=== PATIENT | female | born 1955 | race Caucasian/White ===

== ENCOUNTER → 2017-12-16 01:45 | Outpatient (CLI) | payer OTHER, SELFPAY ==
--- NOTE | 2017-12-16 16:01 | DI.REPORT_ITS ---
SYMPTOM/DIAGNOSIS: SCREENING, Z12.31 MAMMOGRAM: Mammograms were interpreted according to the usual protocol including computer analysis with CAD system, tomosynthesis and C view imaging. Comparison with prior examinations. Breast density B. No masses or microcalcifications are seen. There is nothing to suggest malignancy. IMPRESSION: Negative mammogram. Routine screening is recommended. Category I. MQSA ASSESSMENT OF FINDINGS: Negative. Category 1. Patient will receive a letter notifying them of these results. BI-RADS category B. There are scattered areas of fibroglandular density.
== END ==
PROVIDERS: PCP Family Medicine; Visit Provider Family Medicine
DX: Z12.31 Encounter for screening mammogram for malignant neoplasm of breast (principal)
CPT/HCPCS: 77063; 77067

== ENCOUNTER 2018-06-17 18:51 | Emergency (ER) | payer MEDICARE, SELFPAY ==
[2018-06-17] VITALS (32 sets, daily range): BP systolic 90–140; BP diastolic 57–80; PULSE 105–130; RESP 13–25; TEMP 37.5; O2SAT 98–100
[2018-06-17] MEDS: Normal Saline 1,000 ML 1000 ML IV ×2 (19:02→19:04)
--- NOTE | 2018-06-17 19:02 | DI.CT_ITS ---
SYMPTOM/DIAGNOSIS: VOMITING BLOOD, MELANA CHEST, ABDOMEN AND PELVIC CT: Images were performed from the clavicles through the ischial tuberosities after IV and oral contrast. The oral contrast is seen in the stomach only. Food is also seen in the stomach. There is no evidence of esophageal perforation. No pneumothorax or pneumomediastinum is seen. The heart size is normal. There is mitral anular calcification. There are mild atherosclerotic changes of the thoracic aorta. No pleural or pericardial effusions or infiltrates are seen. The liver shows a nodular contour consistent with cirrhosis. Stones are noted in a contracted gallbladder. There is a lobulated low density area in the inferior right lobe of the liver which may represent a large cavernous hemangioma. The spleen is mildly enlarged. The pancreas, adrenals, kidneys and urinary bladder are unremarkable. There is a trace amount of free fluid. The uterus and ovaries are within normal limits. The appendix appears normal. There is no bowel dilatation or inflammatory change. There is no evidence of free air. Atherosclerotic changes are noted of the abdominal aorta and iliac arteries. Degenerative changes are seen in the spine and both hips. IMPRESSION: No evidence of esophageal rupture. There are esophageal varices. The liver has a cirrhotic appearance. There is a low density lesion in the liver which could represent a hemangioma. Further evaluation with multi phase CT is recommended.
[2018-06-17] MEDS: Pantoprazole 40 MG VIAL IVP (19:15)
[2018-06-17 19:22] LABS: Abs Immature Grans 0.15 k/cumm (0.0-0.09); Absolute Basophil Count 0.03 k/cumm (0.0-0.2); Absolute Eosinophil Count 0.03 k/cumm (0.0-0.7); Absolute Lymphocyte Count 2.33 k/cumm (1.2-3.4); Absolute Monocyte Count 1.39 k/cumm (0.11-0.7); Absolute Neutrophil Count 11.48 k/cumm (1.2-6.7); Basophils % 0.2; Eosinophils % 0.2; HGB 9.4 g/dL (12.0-15.5); Lymphocytes % 15.1; Mean Corp. HGB Concentration 32.4 g/dL (32.0-36.0); Mean Corpuscular Volume 83.3 fL (80-95); Mean Platelet Volume 10.5 fL (8.0-11.0); Neutrophils % 74.5; Platelet Count 234 x1000/uL (130-400); RBC 3.48 m/cumm (4.00-5.20); RBC Distribution Width 17.9 % (11.7-14.6); White Blood Cell Count 15.41 k/cumm (4.4-10.8)
[2018-06-17] MEDS: PANTOPRAZOLE 80 MG in Normal Saline 100 ML 10 MG IV (19:25)
[2018-06-17 19:31] LABS: ALT 31 U/L (12-78); AST 28 U/L (15-37); Albumin 2.8 g/dL (3.4-5.0); Alkaline Phosphatase 82 U/L (46-116); Anion Gap 10.9 mmol/L (3-11); BUN 36 mg/dL (7-18); Bilirubin, Total 0.6 mg/dL (0.2-1.0); CO2 22.1 mmol/L (21.0-32.0); CREATININE 0.78 mg/dL (0.55-1.02); Calcium 8.5 mg/dL (8.5-10.1); Chloride 111 mmol/L (98-107); Glucose 163 mg/dL (70-100); Potassium 4.3 mmol/L (3.5-5.1); Sodium 144 mmol/L (136-145)
[2018-06-17 19:38] LABS: INR 1.2 (0.9-1.1); PTT Activated 20.7 sec (21.0-31.4); Prothrombin Time 12.4 sec (9.3-11.0)
[2018-06-17] MEDS: Breeza Beverage 473 ML BTL PO ×2 (19:52→19:55)
[2018-06-17] MEDS: Omnipaque 350 MG/ML 100 ML BTL IV (19:52)
[2018-06-17] MEDS: Omnipaque 350 MG/ML 50 ML BTL PO (19:55)
--- NOTE | 2018-06-17 19:59 | W.SURGCON ---
Date of service: 06/17/18 Time of Service: 19:59 Assessment and Plan (1) Hepatocellular carcinoma: Current visit: Yes Status: Acute RFA on 06/10. no chemo or XRT at this point. (2) Varices of esophagus determined by endoscopy: Current visit: Yes Status: Acute EGD and banding 4 wks ago. Recurrent GI bleed. still has lg varices on CT PPI Cipro prophalxis transfuse 2 PRBC octreotide fluids resustiation pt follow at [facility] [place] for chronic care. EGD yest at [facility] [place]. GI has agreed to transfer for acute care. SHe is currently hemodyncamically stable. no peritonitis. no active vomting. (3) GI (gastrointestinal hemorrhage): Current visit: Yes Status: Chronic as below (4) Portal hypertensive gastropathy: Current visit: Yes Status: Acute bleeding vessel seen yest PPI stopped nsaids/asa (5) Hep C w/o coma, chronic: Current visit: Yes Status: Acute chornic History of Present Illness Chief Complaint: vomiting arterial blood Narrative: pt presented to ED vomting BRB. She was a Hx of cirrhosis/portal venous htn/varices/ETOH abuse/heaptocellular Ca. She has an RFA ablation of her single liver tumor on 06/10. hgb 12. She had on EGD on 06/16 for anemia/bleeding esophageal varices. She was found to have bleeding vessels in the fundus which were not clipped/cauterized/injected. She romano Hgb today is 9.4 (12.8 on 06/10) INR 1.2 She was hypotensive upon arrival and has had fluid resuscitation started and IV PPI. SBP is 117 currently. She c/o nausea and some lower abdominal crampy pain. No chest pain or back pain. no pain or difficulty swallowing. She is no H2 mariajose or PPI at home. She is not on ASA. She was taking ibuprofen for pain. She does not have any epigastric pain. no distention/no peritonitis. Consults Consult date: 06/17/18 Requesting physician: London Zazueta Review of Systems Constitutional Denies anorexia, Denies body ache(s), Denies chills, Reports fatigue, Denies fever(s) and Reports weakness Comments: N/V Eyes Comments: no eye pain or drainage. no jaundice Cardiovascular Denies chest pain Gastrointestinal Reports abdominal pain, Reports melena, Reports coffee ground emesis, Reports nausea, Reports vomiting and Reports hematemesis Comments: vomiting BRB. no epigastric pain or chest pain/back pain. no crepitus Neurologic Reports weakness Endocrine Reports fatigue [facility] Surgical History section Ligation of fallopian tube Social History Smoking and Tabacco status: Current-Occasional Exam Const Other: currently being fluid resuscitated. feels better. no nausea. no further vomiting. SBP 117's. Eyes Sclera: sclerae normal Chest Chest: normal inspection of the chest Resp Effort & Inspection: normal respiratory effort Auscultation: breath sounds absent, no rales, no rhonchi and no wheezes Cardio Palpation: normal PMI Rate: tachycardic Rhythm: regular rhythm GI Inspection: normal to inspection Palpation: soft and No ascites Other: mild abdom pain in lower abdom. no distention or peritonitis Skin General skin exam: no rashes or lesions noted Extrem General: no clubbing, cyanosis or edema Results Last Vital Signs Pulse 130 H 06/17/18 18:52 Resp 17 06/17/18 18:52 BP 99/72 L 06/17/18 18:52 Pulse Ox 100 06/17/18 18:52 Labs : 06/17/18 18:57 06/17/18 18:57 Laboratory Results - last 24 hr 06/17/18 06/17/18 06/17/18 18:57 18:57 18:57 WBC 15.41 H RBC 3.48 L Hgb 9.4 L Hct 29.0 L MCV 83.3 MCH 27.0 MCHC 32.4 RDW 17.9 H Plt Count 234 MPV 10.5 Immature Gran % 1.0 Neutrophils % 74.5 Lymphocytes % 15.1 Monocytes % 9.0 Eosinophils % 0.2 Basophils % 0.2 Absolute Neutrophils 11.48 H Absolute Lymphocytes 2.33 Absolute Monocytes 1.39 H Absolute Eosinophils 0.03 Absolute Basophils 0.03 Sodium 144 Potassium 4.3 Chloride 111 H Carbon Dioxide 22.1 Anion Gap 10.9 BUN 36 H Creatinine 0.78 Estimated GFR/1.73 m2 >= 60.00 Glucose 163 H Calcium 8.5 Total Bilirubin 0.6 AST 28 ALT 31 Alkaline Phosphatase 82 Total Protein 7.0 Albumin 2.8 L Patient ABO/Rh A Positive
--- NOTE | 2018-06-17 20:03 | SCONE_ITS ---
Date of service: 06/17/18 Time of Service: 19:59 Assessment and Plan (1) Hepatocellular carcinoma: Current visit: Yes Status: Acute RFA on 06/10. no chemo or XRT at this point. (2) Varices of esophagus determined by endoscopy: Current visit: Yes Status: Acute EGD and banding 4 wks ago. Recurrent GI bleed. still has lg varices on CT PPI Cipro prophalxis transfuse 2 PRBC octreotide fluids resustiation pt [place] [facility] [place]. EGD yest at [facility] [place]. GI has agreed to transfer for acute care. SHe is currently hemodyncamically stable. no peritonitis. no active vomting. (3) GI (gastrointestinal hemorrhage): Current visit: Yes Status: Chronic as below (4) Portal hypertensive gastropathy: Current visit: Yes Status: Acute bleeding vessel seen yest PPI stopped nsaids/asa (5) Hep C w/o coma, chronic: Current visit: Yes Status: Acute chornic History of Present Illness Chief Complaint: vomiting arterial blood Narrative: pt presented to ED vomting BRB. She was a Hx of cirrhosis/portal venous htn/varices/ETOH abuse/heaptocellular Ca. She has an RFA ablation of her single liver tumor on 06/10. hgb 12. She had on EGD on 06/16 for anemia/bleeding esophageal varices. She was found to have bleeding vessels in the fundus which were not clipped/cauterized/injected. She romano Hgb today is 9.4 (12.8 on 06/10) INR 1.2 She was hypotensive upon arrival and has had fluid resuscitation started and IV PPI. SBP is 117 currently. She c/o nausea and some lower abdominal crampy pain. No chest pain or back pain. no pain or difficulty swallowing. She is no H2 mariajose or PPI at home. She is not on ASA. She was taking ibuprofen for pain. She does not have any epigastric pain. no distention/no peritonitis. Consults Consult date: 06/17/18 Requesting physician: London Zazueta Review of Systems Constitutional Denies anorexia, Denies body ache(s), Denies chills, Reports fatigue, Denies fever(s) and Reports weakness Comments: N/V Eyes Comments: no eye pain or drainage. no jaundice Cardiovascular Denies chest pain Gastrointestinal Reports abdominal pain, Reports melena, Reports coffee ground emesis, Reports nausea, Reports vomiting and Reports hematemesis Comments: vomiting BRB. no epigastric pain or chest pain/back pain. no crepitus Neurologic Reports weakness Endocrine Reports fatigue [facility] Surgical History section Ligation of fallopian tube Social History Smoking and Tabacco status: Current-Occasional Exam Const Other: currently being fluid resuscitated. feels better. no nausea. no further vomiting. SBP 117's. Eyes Sclera: sclerae normal Chest Chest: normal inspection of the chest Resp Effort & Inspection: normal respiratory effort Auscultation: breath sounds absent, no rales, no rhonchi and no wheezes Cardio Palpation: normal PMI Rate: tachycardic Rhythm: regular rhythm GI Inspection: normal to inspection Palpation: soft and No ascites Other: mild abdom pain in lower abdom. no distention or peritonitis Skin General skin exam: no rashes or lesions noted Extrem General: no clubbing, cyanosis or edema Results Last Vital Signs Pulse 130 H 06/17/18 18:52 Resp 17 06/17/18 18:52 BP 99/72 L 06/17/18 18:52 Pulse Ox 100 06/17/18 18:52 Labs : 06/17/18 18:57 06/17/18 18:57 Laboratory Results - last 24 hr 06/17/18 06/17/18 06/17/18 18:57 18:57 18:57 WBC 15.41 H RBC 3.48 L Hgb 9.4 L Hct 29.0 L MCV 83.3 MCH 27.0 MCHC 32.4 RDW 17.9 H Plt Count 234 MPV 10.5 Immature Gran % 1.0 Neutrophils % 74.5 Lymphocytes % 15.1 Monocytes % 9.0 Eosinophils % 0.2 Basophils % 0.2 Absolute Neutrophils 11.48 H Absolute Lymphocytes 2.33 Absolute Monocytes 1.39 H Absolute Eosinophils 0.03 Absolute Basophils 0.03 Sodium 144 Potassium 4.3 Chloride 111 H Carbon Dioxide 22.1 Anion Gap 10.9 BUN 36 H Creatinine 0.78 Estimated GFR/1.73 m2 >= 60.00 Glucose 163 H Calcium 8.5 Total Bilirubin 0.6 AST 28 ALT 31 Alkaline Phosphatase 82 Total Protein 7.0 Albumin 2.8 L Patient ABO/Rh A Positive
--- NOTE | 2018-06-17 20:04 | ED.GENADUL_ITS ---
Medical Decision Making <Heriberto Zazueta, - Last Filed: 06/18/18 08:19> This is a 63-year-old female with a past medical history of esophageal varices, alcoholism, liver cirrhosis who had a recent EGD performed 3 days ago, there was noted mild mild bleeding varices at that time, but per the report there does not seem to be any banding that was done. She is discharged home, starting today the patient started having vomiting of bright red blood, melena, and coffee-ground emesis. Multiple episodes of vomiting today. She denies any severe abdominal pain. Initial assessment demonstrates a tachycardic and mildly hypotensive patient, 2 large bore IVs were immediately placed, 2 L of normal saline were started. The patient was typed and screened. Surgery here was consulted. Surgeon did review the CT scan and does see notable varices and a large clot in the stomach. She is management is up he does not he does not landing and she does recommend transfer back to [facility] for continued management potential banding. Patient has been started on a Protonix bolus and infusion, octreotide bolus and infusion, and 1 unit of PRBCs. Hemoglobin is 9.4, from [facility] the patient's last hemoglobin just 5 days ago was 12. 8:12 PM We are still awaiting callback from [facility]. Pending CT scan results, blood pressure is improving to 112 systolic heart rate slightly coming down to 110. Patient showing improved stabilization. Case will be signed out to my colleague Dr. Dale Diaz. 8:26 PM The case has been discussed with Dr. Knowles at [facility], as well as Dr. Zelaya to the multimedia specialist. They agree with the current assessment and plan recommend transfer. The patient will be started on Cipro per the recommendation of GI secondary to her penicillin allergy. I have extensively reviewed the treatment plan with the patient. I have addressed all patient concerns at this time. I have also discussed the plan with the admitting physician and they agree with the current assessment and plan and have agreed to assume responsibility for the patient. All parties demonstrate verbal understanding and agreement with our assessment and plan at this time. Upon my evaluation, this patient had a high probability of imminent or life- threatening deterioration, which required my direct attention, intervention, and personal management. I have personally provided 45 minutes of critical care time exclusive of time spent on separately billable procedures. Time includes review of laboratory data, radiology results, discussion with consultants, and monitoring for potential decompensation. Interventions were performed as documented above. <Dale Diaz MD - Last Filed: 06/17/18 22:26> Received signout from Dr. Zazueta pending transport to [facility]. No local loss mitigation specialist/critical care appropriate crew available. Patient had recurrent black tarry emesis in the emergency department, [facility] contacted and available to transport patient to tertiary center. HPI <Heriberto Zazueta DO - Last Filed: 06/18/18 08:19> General Date/Time Provider Initiated Documentation: 06/17/18 18:56 . HPI Narrative: This is a pleasant 63-year-old female with a past medical history of hepatitis C, liver cancer, alcoholism, esophageal varices, who presents today for evaluation of hematemesis and melena. The patient was recently at [facility] and radioablation of a lesion of her liver on the , followed by an EGD for evaluation of her varices on the (yesterday), bleeding was noted at the time of the EGD from the varices. No banding or clipping per report at that time. Patient was discharged home, and then starting today she developed vomiting of both bright red blood and coffee-ground emesis in conjunction with melanotic stools. She denies any severe abdominal pain, chest pain, or shortness of breath. She denies any other complaints or other modifying factors. She is not on any blood thinners. Related Data Home Medications Medication Instructions Recorded Confirmed omega-3 fatty acids-fish oil 1 ea PO DAILY 04/09/14 11/10/17 melatonin-pyridoxine (vit B6) 1 tab PO HS PRN 07/31/14 11/10/17 sertraline [Zoloft] 100 mg PO DAILY tab-cap 08/06/14 06/17/18 milk thistle 2 tab PO DAILY 08/02/15 11/10/17 ibuprofen 600 mg PO QID PRN #15 tablet 01/24/17 11/10/17 levothyroxine 25 mcg PO DAILY 01/24/17 06/17/18 risperidone [Risperdal] 1 mg PO BID 11/10/17 11/10/17 buspirone 15 mg PO BID 06/17/18 06/17/18 Previous Rx's Medication Instructions Recorded ibuprofen 600 mg PO QID PRN #15 tablet 01/24/17 Allergies Allergy/AdvReac Type Severity Reaction Status Date / Time Penicillins Allergy Severe Hives Unverified 06/17/18 18:59 General Stated Complaint: Nausea/Vomit/Diar SARAH: 2 Review of Systems <Heriberto Zazueta - Last Filed: 06/18/18 08:19> Review of Systems All systems reviewed & are unremarkable except as noted in HPI and below PFSH <Heriberto MirandaDO latoya - Last Filed: 06/18/18 08:19> Surgical History section Ligation of fallopian tube Social History Smoking and Tabacco status: Current-Occasional Exam <Heriberto MirandaDO latoya - Last Filed: 06/18/18 08:19> Narrative Exam Narrative: 1.Const: Well-nourished, Well-developed, appearing stated age 2.Eyes: PERRL, no conjunctival injection, and symmetrical lids. 3.ENT: Atraumatic external nose and ears. Moist MM. Neck: Symmetric, trachea midline, No thyromegaly. 4.CVS: +S1/S2, No murmurs or gallops. Peripheral pulses 2+ and equal in all extremities. Brisk capillary refill in all extremities. 5.RESP: Unlabored respiratory effort. Clear to auscultation bilaterally. No wheezes rales or rhonchi 6.GI: Soft, Nontender/Nondistended, No hepatosplenomegaly. No guarding or rebound. 7.MSK: Normocephalic/Atraumatic, Extremities w/o deformity or ttp No cyanosis or clubbing, Normal movement of all extremities 8.Skin: Warm, Dry. No rashes or lesions. 9.Neuro: research librarian II-XII grossly intact. Sensation grossly intact, no focal neurologic deficits. 10.Psych: (AAO) x3. Appropriate mood and affect Course <Heriberto MirandaDO latoya - Last Filed: 06/18/18 08:19> Vital Signs Pulse 130 H 06/17/18 18:52 Respiratory Rate 17 06/17/18 18:52 Blood Pressure 99/72 L 06/17/18 18:52 Pulse Oximetry 100 06/17/18 18:52 Pulse 130 H 06/17/18 18:52 Respiratory Rate 17 06/17/18 18:52 Respiratory Effort Non-Labored 06/17/18 18:57 Blood Pressure 99/72 L 06/17/18 18:52 Blood Pressure Position Supine 06/17/18 18:52 Pulse Oximetry 100 06/17/18 18:52 Oxygen Delivery Method Room Air 06/17/18 18:52 Oxygen Flow Rate 0 06/17/18 18:52 Pain Level 0 06/17/18 18:52 Lab/Test Results Lab/Test Results: Laboratory Tests Range/Units 06/17/18 06/17/18 06/17/18 18:57 18:57 18:57 WBC (4.4-10.8) k/cumm 15.41 H RBC (4.00-5.20) m/cumm 3.48 L Hgb (12.0-15.5) g/dL 9.4 L Hct (36.0-46.0) % 29.0 L MCV (80-95) fL 83.3 MCH (27.0-33.0) pg 27.0 MCHC (32.0-36.0) g/dL 32.4 RDW (11.7-14.6) % 17.9 H Plt Count (130-400) x1000/uL 234 MPV (8.0-11.0) fL 10.5 Immature Gran % 1.0 Neutrophils % 74.5 Lymphocytes % 15.1 Monocytes % 9.0 Eosinophils % 0.2 Basophils % 0.2 Absolute Neutrophils (1.2-6.7) k/cumm 11.48 H Absolute Lymphocytes (1.2-3.4) k/cumm 2.33 Absolute Monocytes (0.11-0.7) k/cumm 1.39 H Absolute Eosinophils (0.0-0.7) k/cumm 0.03 Absolute Basophils (0.0-0.2) k/cumm 0.03 Sodium (136-145) mmol/L 144 Potassium (3.5-5.1) mmol/L 4.3 Chloride (98-107) mmol/L 111 H Carbon Dioxide (21.0-32.0) mmol/L 22.1 Anion Gap (3-11) mmol/L 10.9 BUN (7-18) mg/dL 36 H Creatinine (0.55-1.02) mg/dL 0.78 Estimated GFR/1.73 m2 (mL/min/1.73m2) >= 60.00 Glucose (70-100) mg/dL 163 H Calcium (8.5-10.1) mg/dL 8.5 Total Bilirubin (0.2-1.0) mg/dL 0.6 AST (15-37) U/L 28 ALT (12-78) U/L 31 Alkaline Phosphatase (46-116) U/L 82 Total Protein (6.4-8.2) g/dL 7.0 Albumin (3.4-5.0) g/dL 2.8 L Patient ABO/Rh A Positive Antibody Screen Negative Sign Out <Heriberto Zazueta DO - Last Filed: 06/18/18 08:19> Sign Out Data: Sign Out Comment: Pending CT results, disposition and transfer to [email or web address] [[email or web address] Last updated by Heriberto Zazueta DO at 06/17/18 20:02
--- NOTE | 2018-06-17 20:23 | DI.VRAD_ITS ---
EXAM: CT Chest With Contrast EXAM DATE/TIME: 06/17/2018 7:15 PM CLINICAL HISTORY: 63 years old, female; Signs and symptoms; Other: Vomiting blood, melena TECHNIQUE: Axial computed tomography images of the chest with intravenous contrast. All CT scans at this facility use at least one of these dose optimization techniques: automated exposure control; mA and/or kV adjustment per patient size (includes targeted exams where dose is matched to clinical indication); or iterative reconstruction. Coronal and sagittal reformatted images were created and reviewed. CONTRAST: Contrast Material: 100 ml of OMNIPAQUE 350; Contrast Route: IV COMPARISON: No relevant prior studies available. FINDINGS: Thyroid: The thyroid gland is within normal limits. Lungs: See below. Pleural space: There is no evidence of an infiltrate or a pleural effusion. Heart: There is mitral annulus calcification. Mediastinum: The trachea and bronchial trees are patent bilaterally. Aorta: There are arteriosclerotic changes of the thoracic aorta. Lymph nodes: No enlarged lymph nodes. Bones/joints: The visualized bony structures appear within normal limits. Soft tissues: Unremarkable. IMPRESSION: There is no evidence of an infiltrate or a pleural effusion. EXAM: CT Abdomen and Pelvis With Contrast EXAM DATE/TIME: 06/17/2018 7:15 PM CLINICAL HISTORY: 63 years old, female; Signs and symptoms; Other: Vomiting blood, melena TECHNIQUE: Axial computed tomography images of the abdomen and pelvis with intravenous contrast. All CT scans at this facility use at least one of these dose optimization techniques: automated exposure control; mA and/or kV adjustment per patient size (includes targeted exams where dose is matched to clinical indication); or iterative reconstruction. Coronal and sagittal reformatted images were created and reviewed. CONTRAST: Contrast Material: 100 ml of OMNIPAQUE 350 ; Contrast Route: IV COMPARISON: No relevant prior studies available. FINDINGS: Lower thorax: Please see CT scan of the chest results above. ABDOMEN: Liver: The liver contour is nodular. This is suspicious for cirrhosis. There is a large low attenuation lesion with irregular shape in the right lobe of the liver measuring 5.0 x 4.0 cm. This is not a cyst. This does not appear to represent hemangioma. This could be reevaluated with a CT scan of the liver pre-and post contrast administration utilizing hemangioma protocol. Gallbladder and bile ducts: The gallbladder is contracted with gallstones. Pancreas: The pancreas is within normal limits. Spleen: The spleen is enlarged. Adrenals: The adrenal glands are unremarkable. Kidneys and ureters: The kidneys are within normal limits. Stomach and bowel: There are food products within the stomach. There is no evidence of bowel obstruction. Appendix: The appendix is visualized and is within normal limits. PELVIS: Bladder: The urinary bladder is unremarkable. Reproductive: The uterus and ovaries are within normal limits. ABDOMEN and PELVIS: Intraperitoneal space: Normal. No free air. No significant fluid collection. Bones/joints: There are degenerative changes of both hips. Soft tissues: Unremarkable. Vasculature: There are arteriosclerotic changes of the aorta. There are phleboliths within the pelvis. Lymph nodes: No enlarged lymph nodes. IMPRESSION: Cirrhosis. Splenomegaly. Large liver lesion as described above. Please see discussion above. Cholelithiasis. Dictated and Authenticated by: Merlin Baxter MD. Ordering:VIVI oLuis MD
[2018-06-17] MEDS: Ondansetron 4 MG/2 ML VIAL (20:50)
[2018-06-17] MEDS: CIPROFLOXACIN 400 MG/200 ML BAG 200 MG IVPB (21:15)
--- NOTE | 2018-06-17 21:43 | NUR.NOTE ---
Nursing Note: unit #1 sent running with [facility]. Unit #2 given to start en route with [facility].
== END 2018-06-17 21:55 | disposition short-term general hospital (02) ==
PROVIDERS: Student in an Organized Health Care Education/Training Program; Emergency Provider Emergency Medicine; PCP Family Medicine
DX: I85.01 Esophageal varices with bleeding (principal); K92.2 Gastrointestinal hemorrhage, unspecified
CPT/HCPCS: 36415; 36430; 74177; 80053; 86850; 86900; 86901; 86920; 96361; 96365; 96366; 96368; 99254; 99284; 99285; 71260; 85025; 85610; 85730; J0744; J2354; J2405; J3490; P9016; Q9967

== ENCOUNTER 2018-06-25 09:40 | Outpatient (CLI) | payer MEDICARE, SELFPAY ==
[2018-06-25 10:13] LABS: Abs Immature Grans 0.02 k/cumm (0.0-0.09); Absolute Basophil Count 0.01 k/cumm (0.0-0.2); Absolute Eosinophil Count 0.08 k/cumm (0.0-0.7); Absolute Lymphocyte Count 0.79 k/cumm (1.2-3.4); Basophils % 0.2; Eosinophils % 1.9; HCT 24.5 % (36.0-46.0); HGB 8.2 g/dL (12.0-15.5); Immature Grans % 0.5; Lymphocytes % 19.1; Mean Corp. HGB Concentration 33.5 g/dL (32.0-36.0); Mean Corpuscular Hemoglobin 28.8 pg (27.0-33.0); Mean Platelet Volume 10.8 fL (8.0-11.0); Monocytes % 16.9; Neutrophils % 61.4; Platelet Count 125 x1000/uL (130-400); RBC 2.85 m/cumm (4.00-5.20); RBC Distribution Width 17.1 % (11.7-14.6); White Blood Cell Count 4.13 k/cumm (4.4-10.8)
[2018-06-25 10:29] LABS: Absolute Neutrophil Count 2.54 k/cumm (1.2-6.7)
[2018-06-25 10:54] LABS: Diff Comment RBC Morph Reviewed
[2018-06-25 10:55] LABS: Hypochromasia 1+; Microcytosis 2+
== END 2018-06-25 10:00 ==
PROVIDERS: PCP Family Medicine; Visit Provider Family Medicine
DX: K76.6 Portal hypertension (principal); K92.2 Gastrointestinal hemorrhage, unspecified; C22.0 Liver cell carcinoma; K74.60 Unspecified cirrhosis of liver; B19.20 Unspecified viral hepatitis C without hepatic coma
CPT/HCPCS: 36415; 85025

== ENCOUNTER 2018-06-27 16:15 | Outpatient (REF) | payer MEDICARE, SELFPAY ==
[2018-06-27 21:26] LABS: Abs Immature Grans 0.01 k/cumm (0.0-0.09); Absolute Basophil Count 0.02 k/cumm (0.0-0.2); Absolute Eosinophil Count 0.08 k/cumm (0.0-0.7); Absolute Lymphocyte Count 0.86 k/cumm (1.2-3.4); Absolute Monocyte Count 0.63 k/cumm (0.11-0.7); Basophils % 0.5; Eosinophils % 2.1; HCT 24.8 % (36.0-46.0); HGB 7.8 g/dL (12.0-15.5); Immature Grans % 0.3; Lymphocytes % 22.1; Mean Corp. HGB Concentration 31.5 g/dL (32.0-36.0); Mean Corpuscular Volume 85.8 fL (80-95); Mean Platelet Volume 11.6 fL (8.0-11.0); Monocytes % 16.2; Neutrophils % 58.8; Platelet Count 161 x1000/uL (130-400); RBC 2.89 m/cumm (4.00-5.20); RBC Distribution Width 17.3 % (11.7-14.6)
[2018-06-27 22:54] LABS: Absolute Neutrophil Count 2.29 k/cumm (1.2-6.7)
[2018-06-27 22:55] LABS: Hypochromasia 1+; Polychromasia Present
== END 2018-06-27 16:35 ==
LOC: NCHCN 16:15
PROVIDERS: PCP Family Medicine; Visit Provider Family Medicine
DX: K92.2 Gastrointestinal hemorrhage, unspecified (principal)
CPT/HCPCS: 85025

== ENCOUNTER 2018-07-01 08:41 | Outpatient (CLI) | payer MEDICARE, SELFPAY ==
[2018-07-01 09:18] LABS: Absolute Basophil Count 0.02 k/cumm (0.0-0.2); Absolute Eosinophil Count 0.11 k/cumm (0.0-0.7); Absolute Lymphocyte Count 0.78 k/cumm (1.2-3.4); Absolute Monocyte Count 0.64 k/cumm (0.11-0.7); Absolute Neutrophil Count 2.43 k/cumm (1.2-6.7); Basophils % 0.5; Eosinophils % 2.8; HCT 25.4 % (36.0-46.0); HGB 8.3 g/dL (12.0-15.5); Lymphocytes % 19.6; Mean Corp. HGB Concentration 32.7 g/dL (32.0-36.0); Mean Corpuscular Hemoglobin 27.5 pg (27.0-33.0); Mean Corpuscular Volume 84.1 fL (80-95); Mean Platelet Volume 10.3 fL (8.0-11.0); Monocytes % 16.1; Platelet Count 166 x1000/uL (130-400); RBC 3.02 m/cumm (4.00-5.20); RBC Distribution Width 17.5 % (11.7-14.6); White Blood Cell Count 3.98 k/cumm (4.4-10.8)
[2018-07-01 10:10] LABS: ALT 23 U/L (12-78); AST 29 U/L (15-37); Albumin 3.2 g/dL (3.4-5.0); Alkaline Phosphatase 95 U/L (46-116); Bilirubin, Direct 0.14 mg/dL (0.00-0.20); Bilirubin, Total 0.4 mg/dL (0.2-1.0); Total Protein 7.3 g/dL (6.4-8.2)
== END 2018-07-01 09:01 ==
PROVIDERS: PCP Family Medicine; Visit Provider Family Medicine
DX: C22.0 Liver cell carcinoma (principal)
CPT/HCPCS: 36415; 80076; 85025

== ENCOUNTER 2018-07-11 10:15 | Outpatient (CLI) | payer MEDICARE, SELFPAY ==
[2018-07-11 10:39] LABS: HCT 28.5 % (36.0-46.0); HGB 8.7 g/dL (12.0-15.5); Mean Corp. HGB Concentration 30.5 g/dL (32.0-36.0); Mean Corpuscular Hemoglobin 25.3 pg (27.0-33.0); Mean Corpuscular Volume 82.8 fL (80-95); Mean Platelet Volume 9.8 fL (8.0-11.0); Platelet Count 107 x1000/uL (130-400); RBC 3.44 m/cumm (4.00-5.20); RBC Distribution Width 18.6 % (11.7-14.6); White Blood Cell Count 3.52 k/cumm (4.4-10.8)
== END 2018-07-11 10:35 ==
PROVIDERS: PCP Family Medicine; Visit Provider Family Medicine
DX: K92.2 Gastrointestinal hemorrhage, unspecified (principal)
CPT/HCPCS: 36415; 85027

== ENCOUNTER 2018-07-22 11:23 | Outpatient (CLI) | payer MEDICARE, SELFPAY ==
[2018-07-22 12:12] LABS: Abs Immature Grans 0.01 k/cumm (0.0-0.09); Absolute Basophil Count 0.01 k/cumm (0.0-0.2); Absolute Lymphocyte Count 0.83 k/cumm (1.2-3.4); Basophils % 0.2; Eosinophils % 2.4; HCT 33.3 % (36.0-46.0); HGB 10.4 g/dL (12.0-15.5); Immature Grans % 0.2; Lymphocytes % 20.2; Mean Corp. HGB Concentration 31.2 g/dL (32.0-36.0); Mean Corpuscular Hemoglobin 25.7 pg (27.0-33.0); Mean Corpuscular Volume 82.4 fL (80-95); Mean Platelet Volume 10.7 fL (8.0-11.0); Platelet Count 118 x1000/uL (130-400); RBC 4.04 m/cumm (4.00-5.20); RBC Distribution Width 18.7 % (11.7-14.6); White Blood Cell Count 4.11 k/cumm (4.4-10.8)
[2018-07-22 12:16] LABS: Absolute Neutrophil Count 2.47 k/cumm (1.2-6.7)
== END 2018-07-22 11:43 ==
PROVIDERS: PCP Family Medicine; Visit Provider Internal Medicine Gastroenterology
DX: K74.60 Unspecified cirrhosis of liver (principal)
CPT/HCPCS: 36415; 85025

== ENCOUNTER 2018-11-23 16:38 | Outpatient (REF) | payer MEDICARE, SELFPAY ==
--- NOTE | 2018-11-23 16:00 | PAPFT_PTH ---
PATIENT: Cheli Teresa LOC: [facility] U#:[id number] AGE/SX: 63/F ROOM: RE11/23/[address]: Geovanna Barlow : 1955 BED: DIS: 11/23/2018 SPEC #: [id number] RECD: 11/24/18 12:46 STATUS: MARÍA REQ #: [id number] KRYSTEN: 11/23/18 16:[address]: Geovanna Barlow DEPT: [facility] Cytology RECD BY: Enid Dixon Tissues: 1 - CX/ENDOCX FOR PAP SMEARS Procedures: PAP THIN PREP/[facility] Screening HPV DNA PROBE Comments: [id number]
== END 2018-11-23 16:58 ==
LOC: NCHCN 16:38
PROVIDERS: PCP Family Medicine; Visit Provider Family Medicine
DX: Z12.4 Encounter for screening for malignant neoplasm of cervix (principal); Z11.51 Encounter for screening for human papillomavirus (HPV); Z01.419 Encounter for gynecological examination (general) (routine) without abnormal findings
CPT/HCPCS: 88142; 87624

== ENCOUNTER 2018-12-21 00:26 | Outpatient (CLI) | payer MEDICARE, SELFPAY ==
--- NOTE | 2018-12-21 11:35 | DI.MAMMO_ITS ---
SYMPTOMS/DIAGNOSIS: SCREENING, Z12.31 BILATERAL SCREENING MAMMOGRAM: Mammograms were interpreted according to the usual protocol including computer analysis with CAD system, tomosynthesis and C view imaging. Comparison is made with exams from 2011 through 2018. The breasts are composed of scattered fibroglandular densities, breast density category B. No suspicious masses or suspicious microcalcifications are seen. There has been no significant change. IMPRESSION: Category 1, negative mammogram. Yearly screening mammography is recommended. [facility] ASSESSMENT OF FINDINGS: Negative. Category 1. Patient will receive a letter notifying them of these results. BI-RADS category B. There are scattered areas of fibroglandular density.
== END 2018-12-21 00:46 ==
PROVIDERS: PCP Family Medicine; Visit Provider Family Medicine
DX: Z12.31 Encounter for screening mammogram for malignant neoplasm of breast (principal)
CPT/HCPCS: 77063; 77067

== ENCOUNTER 2019-01-20 08:43 | Outpatient (CLI) | payer MEDICARE, MEDICAID, SELFPAY ==
[2019-01-20 09:38] LABS: Abs Immature Grans 0.01 k/cumm (0.0-0.09); Absolute Basophil Count 0.01 k/cumm (0.0-0.2); Absolute Eosinophil Count 0.14 k/cumm (0.0-0.7); Absolute Lymphocyte Count 0.97 k/cumm (1.2-3.4); Absolute Monocyte Count 0.75 k/cumm (0.11-0.7); Absolute Neutrophil Count 3.59 k/cumm (1.2-6.7); Basophils % 0.2; Eosinophils % 2.6; HCT 41.9 % (36.0-46.0); HGB 14.4 g/dL (12.0-15.5); Immature Grans % 0.2; Lymphocytes % 17.7; Mean Corp. HGB Concentration 34.4 g/dL (32.0-36.0); Mean Corpuscular Hemoglobin 31.4 pg (27.0-33.0); Mean Corpuscular Volume 91.3 fL (80-95); Mean Platelet Volume 9.9 fL (8.0-11.0); Monocytes % 13.7; Neutrophils % 65.6; Platelet Count 117 x1000/uL (130-400); RBC 4.59 m/cumm (4.00-5.20); RBC Distribution Width 14.4 % (11.7-14.6); White Blood Cell Count 5.47 k/cumm (4.4-10.8)
== END 2019-01-20 09:03 ==
PROVIDERS: PCP Family Medicine; Visit Provider Internal Medicine Gastroenterology
DX: K74.60 Unspecified cirrhosis of liver (principal)
CPT/HCPCS: 36415; 85025

== ENCOUNTER 2019-03-13 13:07 | Outpatient (CLI) | payer MEDICARE, MEDICAID, SELFPAY ==
[2019-03-13 14:23] LABS: Abs Immature Grans 0.01 k/cumm (0.0-0.09); Absolute Basophil Count 0.01 k/cumm (0.0-0.2); Absolute Eosinophil Count 0.12 k/cumm (0.0-0.7); Absolute Lymphocyte Count 0.98 k/cumm (1.2-3.4); Absolute Monocyte Count 0.89 k/cumm (0.11-0.7); Absolute Neutrophil Count 3.31 k/cumm (1.2-6.7); Basophils % 0.2; Eosinophils % 2.3; HCT 38.2 % (36.0-46.0); HGB 12.8 g/dL (12.0-15.5); Immature Grans % 0.2; Lymphocytes % 18.4; Mean Corp. HGB Concentration 33.5 g/dL (32.0-36.0); Mean Corpuscular Hemoglobin 28.8 pg (27.0-33.0); Mean Platelet Volume 10.4 fL (8.0-11.0); Monocytes % 16.7; Neutrophils % 62.2; Platelet Count 138 x1000/uL (130-400); RBC 4.44 m/cumm (4.00-5.20); RBC Distribution Width 13.7 % (11.7-14.6); White Blood Cell Count 5.32 k/cumm (4.4-10.8)
[2019-03-13 14:54] LABS: INR 1.1 (0.9-1.1); Prothrombin Time 11.4 sec (9.3-11.0)
[2019-03-13 15:02] LABS: ALT 30 U/L (14-59); AST 27 U/L (15-37); Albumin 3.7 g/dL (3.4-5.0); Alkaline Phosphatase 98 U/L (46-116); Anion Gap 11.5 mmol/L (3-11); BUN 14 mg/dL (7-18); Bilirubin, Total 0.4 mg/dL (0.2-1.0); CO2 24.5 mmol/L (21.0-32.0); CREATININE 0.79 mg/dL (0.55-1.02); Calcium 8.6 mg/dL (8.5-10.1); Chloride 106 mmol/L (98-107); Glucose 80 mg/dL (74-106); Potassium 4.4 mmol/L (3.5-5.1); Sodium 142 mmol/L (136-145); Total Protein 7.8 g/dL (6.4-8.2)
[2019-03-15 09:45] LABS: AFP Tumor Marker 4.3 ng/mL (<8.1)
== END 2019-03-13 13:27 ==
PROVIDERS: PCP Family Medicine; Visit Provider Internal Medicine Gastroenterology
DX: K74.60 Unspecified cirrhosis of liver (principal); C22.0 Liver cell carcinoma
CPT/HCPCS: 36415; 80053; 82105; 85025; 85610

== ENCOUNTER 2019-07-27 10:41 | Outpatient (CLI) | payer MEDICARE, MEDICAID, SELFPAY ==
[2019-07-27 12:29] LABS: Abs Immature Grans 0.04 k/cumm (0.0-0.09); Absolute Basophil Count 0.01 k/cumm (0.0-0.2); Absolute Eosinophil Count 0.12 k/cumm (0.0-0.7); Absolute Lymphocyte Count 0.98 k/cumm (1.2-3.4); Absolute Monocyte Count 1.12 k/cumm (0.11-0.7); Absolute Neutrophil Count 6.47 k/cumm (1.2-6.7); Basophils % 0.1; Eosinophils % 1.4; HCT 40.4 % (36.0-46.0); HGB 13.8 g/dL (12.0-15.5); Immature Grans % 0.5 %; Lymphocytes % 11.2; Mean Corp. HGB Concentration 34.2 g/dL (32.0-36.0); Mean Corpuscular Hemoglobin 26.5 pg (27.0-33.0); Mean Corpuscular Volume 77.7 fL (80-95); Mean Platelet Volume 9.8 fL (8.0-11.0); Monocytes % 12.8; Platelet Count 151 x1000/uL (130-400); RBC Distribution Width 21.6 % (11.7-14.6); White Blood Cell Count 8.74 k/cumm (4.4-10.8)
[2019-07-27 12:39] LABS: INR 1.2 (0.9-1.1)
[2019-07-27 12:42] LABS: ALT 21 U/L (14-59); AST 23 U/L (15-37); Albumin 3.5 g/dL (3.4-5.0); Alkaline Phosphatase 91 U/L (46-116); Anion Gap 10.7 mmol/L (3-11); BUN 15 mg/dL (7-18); Bilirubin, Total 0.8 mg/dL (0.2-1.0); CO2 23.3 mmol/L (21.0-32.0); CREATININE 0.75 mg/dL (0.55-1.02); Calcium 8.7 mg/dL (8.5-10.1); Chloride 102 mmol/L (98-107); Glucose 116 mg/dL (74-106); Potassium 4.2 mmol/L (3.5-5.1); Sodium 136 mmol/L (136-145); Total Protein 9.1 g/dL (6.4-8.2)
[2019-07-27 12:53] LABS: Anisocytosis 1+; Diff Comment RBC Morph Reviewed; Microcytosis 1+
== END 2019-07-27 11:01 ==
PROVIDERS: PCP Family Medicine; Visit Provider Internal Medicine Gastroenterology
DX: C22.0 Liver cell carcinoma (principal); B18.2 Chronic viral hepatitis C; K74.60 Unspecified cirrhosis of liver
CPT/HCPCS: 36415; 80053; 85025; 85610

== ENCOUNTER 2019-09-15 09:24 | Outpatient (CLI) | payer MEDICARE, MEDICAID, SELFPAY ==
[2019-09-15 16:47] LABS: Abs Immature Grans 0.01 k/cumm (0.0-0.09); Absolute Basophil Count 0.01 k/cumm (0.0-0.2); Absolute Eosinophil Count 0.16 k/cumm (0.0-0.7); Absolute Lymphocyte Count 0.71 k/cumm (1.2-3.4); Absolute Monocyte Count 0.69 k/cumm (0.11-0.7); Absolute Neutrophil Count 3.34 k/cumm (1.2-6.7); Basophils % 0.2; Eosinophils % 3.3; HCT 39.7 % (36.0-46.0); HGB 13.3 g/dL (12.0-15.5); Immature Grans % 0.2 %; Lymphocytes % 14.4; Mean Corp. HGB Concentration 33.5 g/dL (32.0-36.0); Mean Corpuscular Hemoglobin 28.1 pg (27.0-33.0); Mean Corpuscular Volume 83.8 fL (80-95); Mean Platelet Volume 9.8 fL (8.0-11.0); Neutrophils % 67.9; Platelet Count 130 x1000/uL (130-400); RBC 4.74 m/cumm (4.00-5.20); RBC Distribution Width 20.4 % (11.7-14.6); White Blood Cell Count 4.92 k/cumm (4.4-10.8)
[2019-09-15 17:10] LABS: INR 1.1 (0.9-1.1); Prothrombin Time 11.4 sec (9.3-11.0)
[2019-09-15 17:45] LABS: ALT 24 U/L (14-59); AST 28 U/L (15-37); Albumin 3.6 g/dL (3.4-5.0); Alkaline Phosphatase 90 U/L (46-116); Anion Gap 9.3 mmol/L (3-11); BUN 13 mg/dL (7-18); Bilirubin, Total 0.5 mg/dL (0.2-1.0); CO2 25.7 mmol/L (21.0-32.0); CREATININE 0.85 mg/dL (0.55-1.02); Calcium 8.3 mg/dL (8.5-10.1); Chloride 104 mmol/L (98-107); Glucose 126 mg/dL (74-106); Potassium 3.9 mmol/L (3.5-5.1); Sodium 139 mmol/L (136-145); Total Protein 8.2 g/dL (6.4-8.2)
[2019-09-15 19:23] LABS: Anisocytosis 1+; Diff Comment RBC Morph Reviewed; Hypochromasia 1+
[2019-09-15 19:24] LABS: Polychromasia Present
[2019-09-15 19:26] LABS: Poikilocytes 1+
== END 2019-09-15 09:44 ==
PROVIDERS: PCP Family Medicine; Visit Provider Internal Medicine Gastroenterology
DX: K74.60 Unspecified cirrhosis of liver (principal); C22.0 Liver cell carcinoma; Z76.82 Awaiting organ transplant status; K70.30 Alcoholic cirrhosis of liver without ascites
CPT/HCPCS: 36415; 80053; 82105; 85025; 85610

== ENCOUNTER 2019-09-23 10:28 | Emergency (ER) | payer MEDICARE, MEDICAID, SELFPAY ==
[2019-09-23 10:33] VITALS: BP 177/74; PULSE 72; RESP 20; TEMP 36.7; O2SAT 98
--- NOTE | 2019-09-23 10:45 | DI.CT_ITS ---
EXAM: CT ABDOMEN PELVIS W CLINICAL HISTORY: Abdominal pain and vomiting,s/p liver embolizat TECHNIQUE: Imaging Protocol: Axial computed tomography images with coronal and sagittal reformatted images were created and reviewed CONTRAST MATERIAL: Intravenous: Omnipaque 350 Contrast volume:100 mL Oral: No COMPARISON: CT CT CHEST/ABD/PEL W from 06/17/2018 FINDINGS: ABDOMEN: Lung Bases: Mild bibasilar atelectasis. Liver: There has been interval decrease in size of the liver lesions seen in the right hepatic lobe. Currently, it measures 3.8 x 3.3 cm compared with 5 x 4 cm. Since the prior examination, 2 hypodens e areas have developed in the liver more inferiorly. They measure 2.8 x 3.3 cm and 2.3 x 2.3 cm. Th ere may be a 3rd new lesion measuring 2.5 x 2.6 cm. (Series 4, images 24 and 25). There is mild per iportal edema which has developed. Portal, Superior Mesenteric, and Splenic Veins: There has been interval development of thrombus withi n the main portal vein extending into the superior mesenteric vein and some of its smaller tributarie s. No pneumatosis or free air is noted. Gallbladder and Biliary Tract: Contracted with gallstones present. There is gallbladder wall thicken ing and enhancement with pericholecystic edema. The common duct is dilated measuring 1.1 cm. Pancreas: Normal density, no abnormal calcifications or inflammatory process. The main pancreatic tiffany t measures up to 5 mm. Spleen: Spleen is enlarged measuring 18 cm. Adrenals: No masses seen. Kidneys: Normal size, contour and axis. No radiodense stones or obstructive uropathy. No masses seen. Abdominal Aorta: Atherosclerosis. No aneurysmal dilatation. Bowel: There is thickening of the wall of the ascending colon with adjacent mesenteric edema and hypo enhancement of the wall. No evidence of appendicitis. Peritoneal Cavity: Mild ascites is present. No free air. Varices are noted at the gastroesophageal junction. Lymph Nodes: Within normal limits. Bones: Multilevel degenerative changes in the lumbar spine. Soft Tissues: Small amount of fluid or nodularity within a fat containing umbilical hernia. This are a is unchanged compared to the prior examination. PELVIS: Bladder: Symmetric distention, no gross wall thickening. Reproductive Organs: Unremarkable as visualized. Lymph Nodes: Within normal limits. Bones: Please see above. IMPRESSION: 1. Interval development of portal vein and superior mesenteric vein thrombosis. 2. Wall thickening of the ascending colon with mesenteric edema and decreased wall enhancement. In t he setting of venous thrombus, mesenteric ischemia should be considered. No evidence of pneumatosis or bowel dilatation. Alternatively, the thickened appearance may be due to the poor hepatic function . 3. Decrease in size of the hypodense lesion in the right lobe of the liver which may be due to the pa tient's reported prior embolization. New areas of decreased attenuation are seen in the right lobe. This may be related to the treatment, however, new hepatic masses/malignancy cannot be excluded. 4. Cholelithiasis, gallbladder wall thickening, and pericholecystic edema concerning for acute cholec ystitis. 5. Findings of hepatic cirrhosis, splenomegaly and a small amount of abdominal and pelvic ascites. RADIATION DOSE DELIVERED: 880.07mGy.cm Total DLP DATA REPOSITORY: All CT scans at this facility are submitted to the National Radiology Data Registry (NRDR) Dose Index Registry (DIR) with the [employer] (ACR). RADIATION OPTIMIZATION: All CT scans at this facility use at least one of these dose optimization te chniques: automated exposure control; mA and/or kV adjustment per patient size (includes targeted exa ms where dose is matched to clinical indication); or iterative reconstruction.
--- NOTE | 2019-09-23 10:48 | W.ED.GENAD ---
Discharge Plan Disposition Patient Disposition: [facility] Condition: Improving Discharge Details Chief Complaint: Nausea/Vomit/Diar Clinical Impression: Portal vein thrombosis Primary Care Provider: Geovanna Barlow ED Provider: Dale Diaz Home Meds and New Rx's Prescriptions: Continued omega-3 fatty acids-fish oil 1 EACH capsule 1 ea PO DAILY RF: 0 sertraline [Zoloft] 100 MG tablet 100 mg PO DAILY RF: 0 melatonin-pyridoxine (vit B6) 1 TAB tablet 1 tab PO HS PRNRF: 0 propranolol 10 mg tablet 10 mg PO DAILY RF: 0 pantoprazole 40 mg tablet,delayed release (DR/EC) 40 mg PO DAILY RF: 0 levothyroxine 25 MCG tablet 25 mcg PO DAILY RF: 0 Medical Decision Making This is a 64-year-old female with a history of hepatitis C, with recurrent hepatocellular carcinoma who recently underwent embolization of the right hepatic artery distal to origin of segment 4 this past at [facility] through a left radial approach. She states on Wednesday she developed mild nausea and vomiting is had decreased p.o. intake and now feels dehydrated and has a headache. She does report mild, diffuse crampy abdominal pain. She arrives with blood pressure 177/74, temp of 36, pulse of 72. Differential diagnosis includes postprocedural complication, infection, gastritis. Patient had IV access established, she was given a fluid bolus, antiemetics, and due to ongoing vomiting did receive an additional 0.5 mg of Ativan for its nausea control. Laboratories: White blood cell count 10, hematocrit 42, platelets 143. Chemistries reassuring but do note potassium of 3.3, total bili is 1.1, AST 29, ALT 21. Ammonia is less than 10. CT of the abdomen and pelvis: 1. Interval decrease in size of previously seen hypodense lesion in the right hepatic lobe. New heterogeneous enhancement of the inferior right hepatic lobe containing 2 new small hypodense lesions. Interval development of portal vein thrombosis and SMV thrombosis extending into the distal tributaries with mild intrahepatic periportal edema. Mesenteric edema within the mid and right hemiabdomen. Thickened appearance of the a sending colon with adjacent mesenteric edema. Development of pericholecystic edema and gallbladder wall thickening with cholelithiasis. Interval dilatation of the common bile duct and main pancreatic duct. I discussed the case with Dr. Kim from [facility] gastroenterology/hepatology service. She feels this is most consistent with reactive pathology to the patient's procedure. She discussed the case with her colleague from hepatology and they agree with admission to the hospitalist service at [facility] for further management. No anticoagulation for the thrombosis at this time. No indication for antibiotics. Patient remained stable and she is informed of the need for transfer to which she agrees. Lab Data Lab results reviewed: Yes I reviewed the patient's lab results. Labs: Laboratory Results - last 24 hr 09/23/19 09/23/19 09/23/19 10:40 10:40 11:05 WBC 10.55 RBC 5.20 Hgb 14.6 Hct 42.5 MCV 81.7 MCH 28.1 MCHC 34.4 RDW 18.1 H Plt Count 143 MPV 10.3 Immature Gran % 0.3 Neutrophils % 83.0 Lymphocytes % 4.2 Monocytes % 12.2 Eosinophils % 0.2 Basophils % 0.1 Absolute Neutrophils 8.76 H Absolute Lymphocytes 0.44 L Absolute Monocytes 1.29 H Absolute Eosinophils 0.02 Absolute Basophils 0.01 Sodium 137 Potassium 3.3 L Chloride 102 Carbon Dioxide 23.4 Anion Gap 11.6 H BUN 9 Creatinine 0.69 Estimated GFR/1.73 m2 >= 60.00 Glucose 141 H Lactate Calcium 9.0 Magnesium 1.8 Total Bilirubin 1.1 H AST 29 ALT 21 Alkaline Phosphatase 93 Ammonia < 10 L Total Protein 9.2 H Albumin 3.6 Lipase 09/23/19 09/23/19 13:40 13:40 WBC RBC Hgb Hct MCV MCH MCHC RDW Plt Count MPV Immature Gran % Neutrophils % Lymphocytes % Monocytes % Eosinophils % Basophils % Absolute Neutrophils Absolute Lymphocytes Absolute Monocytes Absolute Eosinophils Absolute Basophils Sodium Potassium Chloride Carbon Dioxide Anion Gap BUN Creatinine Estimated GFR/1.73 m2 Glucose Lactate 1.1 Calcium Magnesium Total Bilirubin AST ALT Alkaline Phosphatase Ammonia Total Protein Albumin Lipase 129 HPI General Mode of arrival: ambulatory. Date/Time Provider Initiated Documentation: 09/23/19 10:29. Limitations to Documentation: no limitations. Information obtained by: patient. History of Present Illness 64 year old F presents to the emergency department with the chief complaint of Abdominal pain and vomiting, mild headache, described as moderate, Quality is described as dull and constant, and is localized to the abdomen. Patient reports no radiation. Patient started experiencing this hour(s) and it has been constant. No relieving factors improve symptom(s), No exacerbating factors reported . Patient notes headaches, loss of appetite and nausea/vomiting; denies chest pain, fever/chills, shortness of breath and syncope. Patient did receive the following treatments prior to arrival, none Related Data Home Medications Medication Instructions Recorded Confirmed omega-3 fatty acids-fish oil 1 ea PO DAILY 04/09/14 09/23/19 melatonin-pyridoxine (vit B6) 1 tab PO HS PRN 07/31/14 09/23/19 sertraline [Zoloft] 100 mg PO DAILY tab-cap 08/06/14 09/23/19 levothyroxine 25 mcg PO DAILY 01/24/17 09/23/19 pantoprazole 40 mg PO DAILY 09/23/19 09/23/19 propranolol 10 mg PO DAILY 09/23/19 09/23/19 Allergies Allergy/AdvReac Type Severity Reaction Status Date / Time Penicillins Allergy Severe Hives Unverified 09/23/19 10:35 General Stated Complaint: Nausea/Vomit/Diar SARAH: 3 Review of Systems Narrative: 6 systems reviewed and otherwise negative. No recent illness. [facility] Social History Smoking/Tobacco Use Status: Current-Occasional Alcohol Intake: former Drug use: Never Do you feel safe in your relationship?: Yes Exam Narrative Exam Narrative: GEN: awake, alert, oriented 3. Pleasant, well groomed, interactive. HEAD: Normocephalic, atraumatic ENT: Mucous membranes moist, oropharynx unremarkable, External ear exam unremarkable EYES: PERRL, EOMI NECK: Full ROM, no MARIA ANTONIA, no menigismus CHEST/RESP: Nontender, clear to auscultation bilateral, no wheeze/rhonchi/rales CARDIOVASCULAR: RRR, no murmur, rub katheryn. 2+ Rad pulse bilateral ABDOMEN: Soft, nontender, no mass. +Bowel sounds. Mildly distended EXT: Full ROM, ecchymosis left volar distal radius. Neuro: Grossly normal neurologic exam, conversant, interactive. Psych: Speech fluent, thoughts congruent, affect normal Course Vital Signs Vital signs: Vital Signs Temperature 36.7 C 09/23/19 10:33 Pulse 72 09/23/19 10:33 Respiratory Rate 20 09/23/19 10:33 Blood Pressure 177/74 H 09/23/19 10:33 Pulse Oximetry 98 09/23/19 10:33 Temperature 36.7 C 09/23/19 10:33 Temperature Source Skin 09/23/19 10:33 Pulse 72 09/23/19 10:33 Respiratory Rate 20 09/23/19 10:33 Blood Pressure 177/74 H 09/23/19 10:33 Blood Pressure Position Sitting 09/23/19 10:33 Pulse Oximetry 98 09/23/19 10:33 Oxygen Delivery Method Room Air 09/23/19 10:33 Oxygen Flow Rate 0 09/23/19 10:33
[2019-09-23 10:59] LABS: Abs Immature Grans 0.03 k/cumm (0.0-0.09); Absolute Basophil Count 0.01 k/cumm (0.0-0.2); Absolute Eosinophil Count 0.02 k/cumm (0.0-0.7); Absolute Lymphocyte Count 0.44 k/cumm (1.2-3.4); Absolute Monocyte Count 1.29 k/cumm (0.11-0.7); Absolute Neutrophil Count 8.76 k/cumm (1.2-6.7); Basophils % 0.1; Eosinophils % 0.2; HCT 42.5 % (36.0-46.0); HGB 14.6 g/dL (12.0-15.5); Immature Grans % 0.3 %; Lymphocytes % 4.2; Mean Corp. HGB Concentration 34.4 g/dL (32.0-36.0); Mean Corpuscular Hemoglobin 28.1 pg (27.0-33.0); Mean Corpuscular Volume 81.7 fL (80-95); Mean Platelet Volume 10.3 fL (8.0-11.0); Monocytes % 12.2; Platelet Count 143 x1000/uL (130-400); RBC Distribution Width 18.1 % (11.7-14.6); White Blood Cell Count 10.55 k/cumm (4.4-10.8)
[2019-09-23] MEDS: Normal Saline 1,000 ML 1000 ML IV (11:00)
[2019-09-23] MEDS: Ondansetron 4 MG/2 ML VIAL IVP ×4 (11:00→16:20)
[2019-09-23 11:10] LABS: ALT 21 U/L (14-59); AST 29 U/L (15-37); Albumin 3.6 g/dL (3.4-5.0); Alkaline Phosphatase 93 U/L (46-116); Anion Gap 11.6 mmol/L (3-11); BUN 9 mg/dL (7-18); Bilirubin, Total 1.1 mg/dL (0.2-1.0); CO2 23.4 mmol/L (21.0-32.0); CREATININE 0.69 mg/dL (0.55-1.02); Chloride 102 mmol/L (98-107); Glucose 141 mg/dL (74-106); Magnesium 1.8 mg/dL (1.8-2.4); Potassium 3.3 mmol/L (3.5-5.1); Sodium 137 mmol/L (136-145); Total Protein 9.2 g/dL (6.4-8.2)
[2019-09-23] MEDS: LORazepam 2 MG/ML VIAL 0.5 MG IVP ×2 (11:19→15:56)
[2019-09-23] MEDS: Omnipaque 350 MG/ML 100 ML BTL IJ (11:27)
[2019-09-23] MEDS: Normal Saline - Diluent 50 ML VIAL IV (11:28)
[2019-09-23] MEDS: Normal Saline Flush 10 ML SYR IVP (11:28)
[2019-09-23 11:29] LABS: Ammonia < 10 umol/L (11-32)
--- NOTE | 2019-09-23 13:04 | DI.VRAD_ITS ---
PROCEDURE INFORMATION: Exam: CT Abdomen And Pelvis With Contrast Exam date and time: 09/23/2019 10:48 AM Age: 64 years old Clinical indication: Generalized; Patient HX: Abdominal pain and vomiting, S/P liver embolizat. ; Additional info: Best images obtained patient unable to hold still or follow instructions. TECHNIQUE: Imaging protocol: Computed tomography of the abdomen and pelvis with intravenous contrast. Radiation optimization: All CT scans at this facility use at least one of these dose optimization techniques: automated exposure control; mA and/or kV adjustment per patient size (includes targeted exams where dose is matched to clinical indication); or iterative reconstruction. Contrast material: OMNIPAQUE 350; Contrast volume: 100 ml; Contrast route: IV; COMPARISON: CT CHEST/ABD/PEL W 06/17/2018 7:27 PM FINDINGS: Limitations: Motion limitations. Best images obtained by technologist. Lungs: Bibasilar atelectasis. Heart: Mitral annular calcifications are present. Liver: Nodular liver contour, compatible with cirrhosis. There is interval decrease in size of a liver lesion within the medial/posterior right hepatic lobe, less hypodense from the prior study, measuring approximately 3.8 x 3.3 cm (image 22 of series 4), previously 5.0 x 4.0 cm. More inferiorly, there is new heterogeneous enhancement of the adjacent liver parenchyma containing two new small hypodense lesions, which measure 2.8 x 3.3 cm and 2.3 x 2.3 cm (image 25 of series 4). There is suggestion of an additional hypodense lesion located between these lesions measuring 2.5 by 2.6 cm (image 24 of series 4), difficult to properly delineate. Interval development of mild periportal edema. Gallbladder and bile ducts: Contracted gallbladder with presence gallstones. Gallbladder wall thickening and enhancement with pericholecystic edema of fluid. Dilated common bile duct measuring 11 mm. Pancreas: Dilatation of the proximal and mid main pancreatic duct measuring up to 5 mm within the pancreatic head. Spleen: Incidental splenule. Splenomegaly measuring 18 cm in CC dimension. Adrenals: Unremarkable. Kidneys and ureters: Unremarkable. No hydronephrosis. Stomach and bowel: The ascending colon demonstrates thickened bowel wall with adjacent mesenteric edema and relative hypoenhancement. No evidence of bowel dilatation. Appendix: No evidence of appendicitis. Intraperitoneal space: Development of mild ascites. No evidence of free air or pneumatosis intestinalis. Interval development of mesenteric edema with vascular congestion and stranding particularly within the mid and right abdominal wall. Vasculature: New portal vein thrombosis of the proximal main portal vein extending into the SMV and smaller distal tributaries of the SMV. Atherosclerosis of the aorta. Lymph nodes: Small nonspecific cardiophrenic lymph nodes. Few non-specific mesenteric lymph nodes are present within the right lower quadrant appearing since the prior study. Bladder: The bladder is contracted. Reproductive: Unremarkable as visualized. Bones/joints: There are multilevel degenerative changes of lumbar spine. Soft tissues: Nonspecific nodularity within the umbilical hernia, possibly lymph node, measuring 1.4 by 1.3 cm, slightly increased in size. IMPRESSION: 1. Interval decrease in size of the previously seen hypodense lesion in the right hepatic lobe, likely attributed to reported prior embolization. New heterogeneous enhancement of the inferior right hepatic lobe containing 2 new small hypodense lesions and suspected additional lesion between these lesions in the right hepatic lobe. These lesions are incompletely characterized on this study. Heterogeneous enhancement pattern within the right hepatic lobe may be related to post treatment effect. However, recommend correlation with prior imaging and/or follow-up dedicated liver MRI with contrast to exclude underlying liver malignancy. 2. Interval development of portal vein thrombosis and SMV thrombosis extending into the smaller distal SMV tributaries. Mild intrahepatic periportal edema. 3. Development of mesenteric edema within the mid and right hemiabdomen. New thickened appearance of the ascending colon with adjacent mesenteric edema and relative hypoenhancement. In the setting of SMV thrombosis, finding is concerning for possible mesenteric ischemia. No evidence of bowel dilatation, pneumatosis or free air. Alternatively, in the setting of cirrhosis, the thickened appearance of the ascending colon may be attributed to portal enteropathy. 4. Development of pericholecystic edema and gallbladder wall thickening in the setting of cholelithiasis, concerning for acute cholecystitis. Interval dilatation of the common bile duct and proximal main pancreatic duct. 5. Cirrhosis with splenomegaly and development of small amount of ascites. Dictated and Authenticated by: Crystal Harrison MD. Ordering:GAYLE Hunter MD
[2019-09-23 13:51] LABS: Lactate 1.1 mmol/L (0.6-1.4)
[2019-09-23 14:08] LABS: Lipase 129 U/L (73-393)
[2019-09-23 14:33] VITALS: BP 146/84; PULSE 77; RESP 18; TEMP 36.7; O2SAT 96
[2019-09-23] MEDS: Normal Saline 1,000 ML 125 ML IV (14:35)
== END 2019-09-23 16:22 | disposition short-term general hospital (02) ==
PROVIDERS: Emergency Provider Emergency Medicine; PCP Family Medicine
DX: I81 Portal vein thrombosis (principal); Y84.8 Other medical procedures as the cause of abnormal reaction of the patient, or of later complication, without mention of misadventure at the time of the procedure; E87.6 Hypokalemia; C22.0 Liver cell carcinoma; B18.2 Chronic viral hepatitis C
CPT/HCPCS: 36415; 80053; 83690; 87040; 96361; 96374; 96375; 96376; 99285; 74177; 82140; 83605; 83735; 85025; J2060; J2405; J3490

== ENCOUNTER 2021-09-26 14:45 | Outpatient (CLI) | payer MEDICARE, MEDICAID, SELFPAY ==
[2021-09-26 11:53] LABS: Abs Immature Grans 0.06 10^3/uL (0.0-0.06); Absolute Basophil Count 0.03 10^3/uL (0.0-0.2); Absolute Lymphocyte Count 0.39 10^3/uL (1.2-3.4); Absolute Monocyte Count 0.75 10^3/uL (0.1-0.8); Absolute Neutrophil Count 3.35 10^3/uL (1.2-6.7); Basophils % 0.6; Eosinophils % 2.1; HCT 40.9 % (36.0-46.0); HGB 13.3 g/dL (11.2-15.7); Immature Grans % 1.3; Lymphocytes % 8.3; MCH 25.3 pg (27.0-33.0); MCHC 32.5 % (32.0-36.0); MCV 78 fL (80-95); MPV 9.7 fL (8.0-11.0); Neutrophils % 71.7; Platelet Count 106 10^3/uL (130-400); RBC 5.25 10^6/uL (3.93-5.22); RDW 18.9 % (11.7-14.6); RDW-SD 52.2 fL; WBC 4.68 10^3/uL (4.4-10.8)
[2021-09-26 12:05] LABS: INR 1.2 (0.9-1.1); Prothrombin Time 12.2 sec (9.3-11.0)
[2021-09-26 13:47] LABS: ALT 13 U/L (14-59); AST 15 U/L (15-37); Albumin 3.3 g/dL (3.4-5.0); Alkaline Phosphatase 85 U/L (46-116); Anion Gap 10.4 mmol/L (3-11); BUN 10 mg/dL (7-18); Bilirubin, Total 0.3 mg/dL (0.2-1.0); CO2 24.6 mmol/L (21.0-32.0); CREATININE 0.7 mg/dL (0.55-1.02); Calcium 8.5 mg/dL (8.5-10.1); Chloride 101 mmol/L (98-107); Glucose 108 mg/dL (74-106); Potassium 4.2 mmol/L (3.5-5.1); Sodium 136 mmol/L (136-145); Total Protein 8.1 g/dL (6.4-8.2)
[2021-09-29 12:13] LABS: AFP Tumor Marker 3.2 ng/mL (<8.1)
== END 2021-09-26 14:46 | disposition home or self-care (01) ==
LOC: LBO 14:52
PROVIDERS: PCP Family Medicine; Visit Provider Internal Medicine Gastroenterology
DX: C22.0 Liver cell carcinoma (principal)
CPT/HCPCS: 36415; 80053; 82105; 85025; 85610

== ENCOUNTER → 2021-12-18 04:07 | Outpatient (CLI) | payer MEDICARE, MEDICAID, SELFPAY ==
--- NOTE | 2021-12-18 14:38 | DI.CT_ITS ---
Exam(s) CT CHEST WO EXAM: CT CHEST WO CLINICAL HISTORY: HCC, C22.0, ? LUNG METS. TECHNIQUE: Multi planar reconstructions were performed. CONTRAST MATERIAL: None COMPARISON: CT CT CHEST/ABD/PEL W from 06/17/[address] ABDOMEN PELVIS W from 09/23/2019 FINDINGS: CHEST: LUNGS: There is a 10 x 11 millimeter nodule infiltrate in the left lung apex (series 2/image 8), poss ibly significant. No other focal left lung findings nor pleural effusions and there are no significa nt findings in the opposite-right lung. No findings in trachea and mainstem bronchi. No pleural eff usions on either side. MEDIASTINUM: There is no obvious hilar nor mediastinal adenopathy. Thyroid size normal. In the post erior lower mediastinum there is abnormal density in the region the GE junction. The esophagus is mi nimally prominent above this level. Consideration for mass and adenopathy at this level as well as p ossible varices. Difficult to assess without IV contrast. CARDIAC: Heart size upper normal. No significant pericardial effusion.Caliber of the thoracic aorta is within normal limits. VISUALIZED UPPER ABDOMEN:Hepatic cirrhosis. Massive splenomegaly. Some perihepatic ascites is noted . There is also a suggestion of a right hepatic lobe lesion. Gallstones also noted. OSSEOUS: No significant osseous lesions.No fractures evident. IMPRESSION: 1. There is a solitary focal lung finding which is a small 10 x 11 millimeter nodular density in the extreme left lung apex, difficult to determine scar versus nodule. There are no other pulmonary nodu les nor infiltrates and there are no pleural effusions. 2. Retrocardiac density difficult to assess without IV contrast but either represents mass in the reg ion of GE junction or varices or combination there of. 3. Ascites. Cirrhotic appearing liver with probable right hepatic lobe mass. Also impressive spleno megaly. Gallstones. RADIATION DOSE DELIVERED: 471.79mGy.cm Total DLP DATA REPOSITORY: All CT scans at this facility are submitted to the National Radiology Data Registry (NRDR) Dose Index Registry (DIR) with the [employer] (ACR). RADIATION OPTIMIZATION: All CT scans at this facility use at least one of these dose optimization te chniques: automated exposure control; mA and/or kV adjustment per patient size (includes targeted exa ms where dose is matched to clinical indication); or iterative reconstruction.
== END ==
PROVIDERS: PCP Family Medicine; Visit Provider Radiology Radiation Oncology
DX: C22.0 Liver cell carcinoma (principal); R91.1 Solitary pulmonary nodule; J98.59 Other diseases of mediastinum, not elsewhere classified; R16.1 Splenomegaly, not elsewhere classified; K74.69 Other cirrhosis of liver; K76.89 Other specified diseases of liver; K80.20 Calculus of gallbladder without cholecystitis without obstruction; R18.8 Other ascites
CPT/HCPCS: 71250

== ENCOUNTER 2022-04-06 09:49 | Outpatient (CLI) | payer MEDICARE, MEDICAID, SELFPAY ==
[2022-04-06 13:24] LABS: Abs Immature Grans 0.03 10^3/uL (0.0-0.06); Absolute Basophil Count 0.02 10^3/uL (0.0-0.2); Absolute Eosinophil Count 0.13 10^3/uL (0.0-0.7); Absolute Lymphocyte Count 0.25 10^3/uL (1.2-3.4); Absolute Monocyte Count 0.63 10^3/uL (0.1-0.8); Absolute Neutrophil Count 2.65 10^3/uL (1.2-6.7); Basophils % 0.5; Eosinophils % 3.5; HCT 41.4 % (36.0-46.0); HGB 13.8 g/dL (11.2-15.7); Immature Grans % 0.8; Lymphocytes % 6.7; MCH 29.7 pg (27.0-33.0); MCHC 33.3 % (32.0-36.0); MCV 89 fL (80-95); MPV 9.8 fL (8.0-11.0); Neutrophils % 71.5; RBC 4.64 10^6/uL (3.93-5.22); RDW 17.6 % (11.7-14.6); RDW-SD 57.6 fL; WBC 3.71 10^3/uL (4.4-10.8)
[2022-04-06 13:48] LABS: ALT 22 U/L (14-59); AST 32 U/L (15-37); Albumin 3.6 g/dL (3.4-5.0); Alkaline Phosphatase 75 U/L (46-116); Anion Gap 5.5 mmol/L (3-11); BUN 8 mg/dL (7-18); Bilirubin, Total 0.7 mg/dL (0.2-1.0); CO2 29.5 mmol/L (21.0-32.0); CREATININE 0.7 mg/dL (0.55-1.02); Calcium 8.8 mg/dL (8.5-10.1); Chloride 104 mmol/L (98-107); Estimated GFR 93.56 (mL/min/1.73m2); Glucose 116 mg/dL (74-106); Potassium 4.1 mmol/L (3.5-5.1); Sodium 139 mmol/L (136-145); Total Protein 7.9 g/dL (6.4-8.2)
[2022-04-06 13:54] LABS: Platelet Count 82 10^3/uL (130-400)
[2022-04-06 13:59] LABS: INR 1.2 (0.9-1.1); Prothrombin Time 11.9 sec (9.3-11.0)
[2022-04-08 08:47] LABS: AFP Tumor Marker 4.1 ng/mL (<8.1)
== END 2022-04-06 09:50 | disposition home or self-care (01) ==
LOC: LBO 09:51
PROVIDERS: PCP Family Medicine; Visit Provider Internal Medicine Gastroenterology
DX: C22.0 Liver cell carcinoma (principal)
CPT/HCPCS: 36415; 80053; 82105; 85025; 85610

== ENCOUNTER 2022-07-03 15:08 | Emergency (ER) | payer MEDICARE, MEDICAID, SELFPAY ==
--- NOTE | 2022-07-03 08:15 | RT.EKG_ITS ---
APPROVED REPORT Exam: Resting ECG Reason for Exam: chest pain Patient Location: E HR:68 bpm ECG Measurements Heart Rate 68 AXIS MI 161 P 56 QRSd 93 QRS 12 QT 408 T 33 QTc 435 Conclusion Sinus rhythm...normal P axis, V-rate 60- 99
--- NOTE | 2022-07-03 15:16 | DI.US_ITS ---
Exam(s) US EXTREMITY VENOUS BI EXAM: US EXTREMITY VENOUS BI CLINICAL HISTORY: swelling. TECHNIQUE: Bilateral lower extremity venous ultrasound performed using grayscale, color-flow, and sp ectral Doppler analysis. COMPARISON: No exams were available for comparison FINDINGS: The right common femoral, femoral and popliteal veins demonstrate normal compressibility, augmentatio n, and color Doppler. The posterior tibial veins are patent. The saphenofemoral junctions are unremar kable. There is no evidence of a Parnell's cyst. The soft tissues are unremarkable. There thrombosed styles perficial veins around the knee. The left common femoral, femoral and popliteal veins demonstrate normal compressibility, augmentation , and color Doppler. The posterior tibial veins are patent. The saphenofemoral junctions are unremark able. There is no evidence of a Parnell's cyst. The soft tissues are unremarkable. IMPRESSION: 1. No evidence of a right lower extremity DVT. 2. No evidence of a left lower extremity DVT. 3. Thrombosed superficial veins around the right knee. 4. Findings were discussed with Dr. Rogel at 4:02 p.m. on 07/03/2022. DATA REPOSITORY:
[2022-07-03 16:18] VITALS: BP 99/71; PULSE 70; RESP 17; O2SAT 98
[2022-07-03 16:32] VITALS: BP 99/77; PULSE 73; RESP 16; O2SAT 98
--- NOTE | 2022-07-03 16:55 | ED.GENADUL_ITS ---
Discharge Plan Disposition Patient Disposition: Home Condition: Stable Discharge Details Clinical Impression: Superficial thrombophlebitis of both legs Primary Care Provider: Geovanna Barlow ED Provider: Adam Rogel Home Meds and New Rx's Prescriptions: New doxycycline hyclate 100 mg tablet 100 mg PO BID Qty: 14 0RF No Action omega-3 fatty acids-fish oil 1 EACH capsule 1 ea PO DAILY sertraline [Zoloft] 100 MG tablet 100 mg PO DAILY Patient Comments: melatonin-pyridoxine (vit B6) 1 TAB tablet 1 tab PO HS PRN propranolol 10 mg tablet 10 mg PO DAILY pantoprazole 40 mg tablet,delayed release (DR/EC) 40 mg PO DAILY levothyroxine 25 MCG tablet 25 mcg PO DAILY Discharge Instructions Instructions: Superficial Thrombophlebitis (ED) Additional Instructions: Please take full course of antibiotic as prescribed. You were given initial dose here in the [facility], your next dose is tomorrow morning. Please use warm compresses as we discussed. Please contact your primary care physician to arrange follow-up. Medication reconciliation could not be performed today. Please take your medications as prescribed by your primary care physician. Return to the ER immediately for any worsening or new concerning symptoms. Referrals: Geovanna Barlow [Primary Care Provider] - Discharge Data Discharge Date/Time-TO BE ENTERED AT DEPARTURE: 07/03/22 17:02 Medical Decision Making Considered DVT. Ultrasound bilateral legs negative for DVT, there is some superficial clot noted. Bilateral lower extremity superficial thrombophlebitis. Patient has small area of inflammation left lower leg, right leg posterior knee is the largest area of swelling and erythema. Plan to initiate treatment with doxycycline. Recommended warm compresses. HPI General Mode of arrival: ambulatory . Date/Time Provider Initiated Documentation: 07/03/22 15:13 . Limitations to Documentation: no limitations . Information obtained by: patient . HPI Narrative: 67-year-old female presents with bilateral lower extremity swelling for the past 1 week. She has some associated discomfort. Symptoms mild to moderate. She does note some associated inflammatory skin changes as well. Patient concerned that she may have a DVT. Related Data Home Medications Medication Instructions Recorded Confirmed omega-3 fatty acids-fish oil 300 1 ea PO DAILY 04/09/14 07/03/22 mg-1,000 mg capsule melatonin 3 mg-pyridoxine (vitamin 1 tab PO HS PRN 07/31/14 07/03/22 B6) 2 mg tablet sertraline 100 mg tablet (Zoloft) 100 mg PO DAILY 08/06/14 07/03/22 levothyroxine 25 mcg tablet 25 mcg PO DAILY 01/24/17 07/03/22 pantoprazole 40 mg tablet,delayed 40 mg PO DAILY 09/23/19 07/03/22 release propranolol 10 mg tablet 10 mg PO DAILY 09/23/19 07/03/22 doxycycline hyclate 100 mg tablet 100 mg PO BID #14 tabs 07/03/22 Previous Rx's Medication Instructions Recorded doxycycline hyclate 100 mg tablet 100 mg PO BID #14 tabs 07/03/22 Allergies Allergy/AdvReac Type Severity Reaction Status Date / Time Penicillins Allergy Severe Hives Unverified 09/23/19 10:35 General Stated Complaint: Vascular SARAH: 2 Review of Systems Constitutional Constitutional: Denies fever(s) Cardiovascular Cardiovascular: Denies chest pain and Denies dyspnea Respiratory Respiratory: Denies dyspnea PFSH All Active Problems Superficial thrombophlebitis of both legs (Acute) Hep C w/o coma, chronic (Acute) Portal hypertensive gastropathy (Acute) GI (gastrointestinal hemorrhage) (Chronic) Varices of esophagus determined by endoscopy (Acute) Hepatocellular carcinoma (Acute) Surgical History section X 2 Ligation of fallopian tube Social History Smoking/Tobacco Use Status: Former Tobacco Use Smoking risk assessment performed?: Yes Alcohol Intake: former Drug use: Occasionally Substance use type: marijuana Details: marijuana at bedtime Do you feel safe at home: Yes Do you feel safe in your relationship?: Yes Exam Const General: cooperative and no acute distress Resp Auscultation: clear to auscultation bilaterally, no rales, no rhonchi and no wheezes Cardio Rate: regular rate and not tachycardic Rhythm: regular rhythm Skin General skin exam: no rashes or lesions noted Neuro General: patient alert, patient awake and tone normal Extrem Right lower extremity: lower leg Details: localized swelling (Right posterior medial knee with mild thrombophlebitis) and non-pitting edema (mild) Left lower extremity: lower leg Details: non-pitting edema (mild) Course Vital Signs Vital signs: Vital Signs Pulse 70 07/03/22 16:18 Respiratory Rate 17 07/03/22 16:18 Blood Pressure 99/71 L 07/03/22 16:18 Pulse Oximetry 98 07/03/22 16:18 Pulse 73 07/03/22 16:32 Respiratory Rate 16 07/03/22 16:32 Respiratory Effort Normal 07/03/22 16:26 Respiratory Depth Normal 07/03/22 16:26 Respiratory Pattern Normal 07/03/22 16:26 Blood Pressure 99/77 L 07/03/22 16:32 Pulse Oximetry 98 07/03/22 16:32 Oxygen Delivery Method Room Air 07/03/22 16:32 Oxygen Flow Rate 0 07/03/22 16:32 Pain Level 8 07/03/22 16:18
[2022-07-03] MEDS: Doxycycline Hyclate 100 MG CAP PO (17:04)
== END 2022-07-03 17:02 | disposition home or self-care (01) ==
PROVIDERS: Emergency Provider Student in an Organized Health Care Education/Training Program; PCP Family Medicine
DX: I80.03 Phlebitis and thrombophlebitis of superficial vessels of lower extremities, bilateral (principal)
CPT/HCPCS: 93005; 99284; 93010; 93970

== ENCOUNTER 2022-07-14 23:25 | Outpatient (CLI) | payer MEDICARE, MEDICAID, SELFPAY ==
[2022-07-14 14:01] LABS: Abs Immature Grans 0.02 10^3/uL (0.0-0.06); Absolute Basophil Count 0.01 10^3/uL (0.0-0.2); Absolute Eosinophil Count 0.18 10^3/uL (0.0-0.7); Absolute Lymphocyte Count 0.32 10^3/uL (1.2-3.4); Absolute Monocyte Count 0.52 10^3/uL (0.1-0.8); Absolute Neutrophil Count 2.66 10^3/uL (1.2-6.7); Basophils % 0.3; Eosinophils % 4.9; HCT 35.5 % (36.0-46.0); HGB 12.2 g/dL (11.2-15.7); Immature Grans % 0.5; Lymphocytes % 8.6; MCH 30.6 pg (27.0-33.0); MCHC 34.4 % (32.0-36.0); MCV 89 fL (80-95); Neutrophils % 71.7; Platelet Count 103 10^3/uL (130-400); RBC 3.99 10^6/uL (3.93-5.22); RDW 15.2 % (11.7-14.6); RDW-SD 49.9 fL; WBC 3.71 10^3/uL (4.4-10.8)
[2022-07-14 14:08] LABS: INR 1.2 (0.9-1.1); Prothrombin Time 11.9 sec (9.3-11.0)
[2022-07-14 14:35] LABS: ALT 22 U/L (14-59); AST 30 U/L (15-37); Albumin 3.2 g/dL (3.4-5.0); Alkaline Phosphatase 77 U/L (46-116); Anion Gap 5.4 mmol/L (3-11); BUN 11 mg/dL (7-18); Bilirubin, Total 0.6 mg/dL (0.2-1.0); CO2 28.6 mmol/L (21.0-32.0); CREATININE 0.8 mg/dL (0.55-1.02); Calcium 8.8 mg/dL (8.5-10.1); Chloride 105 mmol/L (98-107); Estimated GFR 79.71 (mL/min/1.73m2); Glucose 99 mg/dL (74-106); Potassium 4.1 mmol/L (3.5-5.1); Sodium 139 mmol/L (136-145); Total Protein 7.3 g/dL (6.4-8.2)
== END 2022-07-14 23:26 | disposition home or self-care (01) ==
LOC: LBO 23:25
PROVIDERS: PCP Family Medicine; Visit Provider Internal Medicine Gastroenterology
DX: C22.0 Liver cell carcinoma (principal)
CPT/HCPCS: 36415; 80053; 82105; 85025; 85610

== ENCOUNTER 2022-08-26 15:37 | Outpatient (REF) | payer MEDICARE, MEDICAID, SELFPAY ==
[2022-08-26 21:21] LABS: Abs Immature Grans 0.03 10^3/uL (0.0-0.06); Absolute Basophil Count 0.01 10^3/uL (0.0-0.2); Absolute Eosinophil Count 0.18 10^3/uL (0.0-0.7); Absolute Lymphocyte Count 0.52 10^3/uL (1.2-3.4); Absolute Neutrophil Count 4.14 10^3/uL (1.2-6.7); Basophils % 0.2; Eosinophils % 3.2; HCT 39.3 % (36.0-46.0); HGB 12.8 g/dL (11.2-15.7); Immature Grans % 0.5; Lymphocytes % 9.3; MCH 27.5 pg (27.0-33.0); MCHC 32.6 % (32.0-36.0); MCV 84 fL (80-95); MPV 10.5 fL (8.0-11.0); Monocytes % 12.5; Neutrophils % 74.3; Platelet Count 132 10^3/uL (130-400); RBC 4.66 10^6/uL (3.93-5.22); RDW 15.1 % (11.7-14.6); RDW-SD 45.9 fL; WBC 5.58 10^3/uL (4.4-10.8)
[2022-08-26 21:35] LABS: ALT 30 U/L (14-59); AST 32 U/L (15-37); Albumin 3.6 g/dL (3.4-5.0); Alkaline Phosphatase 83 U/L (46-116); Anion Gap 10.1 mmol/L (3-11); BUN 8 mg/dL (7-18); Bilirubin, Total 0.7 mg/dL (0.2-1.0); CO2 26.9 mmol/L (21.0-32.0); CREATININE 0.7 mg/dL (0.55-1.02); Calcium 9.2 mg/dL (8.5-10.1); Chloride 103 mmol/L (98-107); Estimated GFR 93.56 (mL/min/1.73m2); Glucose 101 mg/dL (74-106); Potassium 3.9 mmol/L (3.5-5.1); Sodium 140 mmol/L (136-145); Total Protein 7.7 g/dL (6.4-8.2)
== END 2022-08-26 15:38 | disposition home or self-care (01) ==
LOC: NCHCN 15:37
PROVIDERS: PCP Family Medicine; Visit Provider Family Medicine
DX: K76.6 Portal hypertension (principal); K92.2 Gastrointestinal hemorrhage, unspecified; C22.0 Liver cell carcinoma
CPT/HCPCS: 80053; 82140; 85025

== ENCOUNTER 2022-08-27 09:49 | Outpatient (CLI) | payer MEDICARE, MEDICAID, SELFPAY ==
[2022-08-27 10:09] LABS: Ammonia < 10 umol/L (11-32)
== END 2022-08-27 09:50 | disposition home or self-care (01) ==
LOC: LBO 09:52
PROVIDERS: PCP Family Medicine; Visit Provider Family Medicine
DX: K76.6 Portal hypertension (principal); K92.2 Gastrointestinal hemorrhage, unspecified; C22.0 Liver cell carcinoma
CPT/HCPCS: 36415; 82140

== ENCOUNTER 2022-11-05 12:14 | Emergency (ER) | payer MEDICARE, MEDICAID, SELFPAY ==
[2022-11-05] VITALS (44 sets, daily range): BP systolic 93–135; BP diastolic 56–79; PULSE 64–75; RESP 16–18; TEMP 36.8; O2SAT 89–100
--- NOTE | 2022-11-05 13:15 | DI.CT_ITS ---
Exam(s) CT ABDOMEN PELVIS W EXAM: CT ABDOMEN PELVIS W CLINICAL HISTORY: right lower rib pain, hepatocell ca on AC TECHNIQUE: Imaging Protocol: Axial computed tomography images with coronal and sagittal reformatted images were created and reviewed CONTRAST MATERIAL: Intravenous: Omnipaque 350 Contrast volume:100 mL Oral: No COMPARISON: CT CT ABDOMEN PELVIS W from 09/23/[address] CHEST WO from 12/18/2021 FINDINGS: ABDOMEN: Lung Bases: There is a moderate right pleural effusion and subjacent infiltrate which may represent a telectasis or pneumonia. Gastroesophageal varices are present. Liver: Normal density. The liver has a cirrhotic appearance. There is a hypodense mass within or adj acent to the posterior aspect of the liver. It measures at least 6.7 x 4.6 cm. This was present on the CT scan from 12/18/2021. Gallbladder versus hepatic mass. Portal, Superior Mesenteric, and Splenic Veins: Unremarkable. Gallbladder and Biliary Tract: Please see the above section under liver. There is mild intrahepatic biliary ductal dilatation. Pancreas: Normal density, no abnormal calcifications or inflammatory process. Spleen: Splenomegaly. There is heterogeneous enhancement of the spleen. Adrenals: No masses seen. Kidneys: Normal size, contour and axis. No radiodense stones or obstructive uropathy. No masses seen. Abdominal Aorta: Abdominal portion non-dilated. Atherosclerosis. Bowel: Diverticulosis of the colon, but no evidence of acute diverticulitis. There is diffuse mild s mall bowel wall thickening which may reflect the patient's which may be secondary to the patient's as cites and poor liver function. No evidence of appendicitis. Peritoneal Cavity: There is a large amount of abdominal pelvic ascites. No free air. Lymph Nodes: Within normal limits. Bones: Within normal limits for the patient's age. Soft Tissues: There is a small fluid containing midline umbilical hernia. PELVIS: Bladder: Symmetric distention, no gross wall thickening. Reproductive Organs: Unremarkable as visualized. Lymph Nodes: Within normal limits. Bones: Within normal limits for the patient's age. IMPRESSION: 1. No acute rib fracture. 2. Moderate amount of right pleural effusion and subjacent infiltrate which may represent atelectasis or pneumonia. 3. Findings in the abdomen and pelvis include cirrhotic liver and portal hypertension with splenomega ly and a large amount of abdominal ascites. 4. Complex masslike lesion posterior to the liver. This may represent a hip hepatic mass versus the gallbladder. This was present on the CT scan from 12/18/2021. 5. Additional findings in the abdomen and pelvis as described above. 6. Findings were discussed with Dr. Dempsey at 3:49 p.m. on 11/05/2022. RADIATION DOSE DELIVERED: Total DLP DATA REPOSITORY: All CT scans at this facility are submitted to the National Radiology Data Registry (NRDR) Dose Index Registry (DIR) with the [employer] (ACR). RADIATION OPTIMIZATION: All CT scans at this facility use at least one of these dose optimization te chniques: automated exposure control; mA and/or kV adjustment per patient size (includes targeted exa ms where dose is matched to clinical indication); or iterative reconstruction.
[2022-11-05] MEDS: Ketorolac 15 MG/ML VIAL IM (13:22)
[2022-11-05] MEDS: Lidocaine 5% Patch 1 PATCH TP (13:22)
--- NOTE | 2022-11-05 13:27 | ED.GENADUL_ITS ---
Discharge Plan Disposition Patient Disposition: Home Condition: Stable Discharge Details Chief Complaint: Chest/Rib Clinical Impression: Pleural effusion Primary Care Provider: Geovanna Barlow ED Provider: Bryce Dempsey Home Meds and New Rx's Prescriptions: No Action omega-3 fatty acids-fish oil 1 EACH capsule 1 ea PO DAILY sertraline [Zoloft] 100 MG tablet 100 mg PO DAILY Patient Comments: melatonin-pyridoxine (vit B6) 1 TAB tablet 1 tab PO HS PRN propranolol 10 mg tablet 10 mg PO DAILY pantoprazole 40 mg tablet,delayed release (DR/EC) 40 mg PO DAILY levothyroxine 25 MCG tablet 25 mcg PO DAILY doxycycline hyclate 100 mg tablet 100 mg PO BID Qty: 14 0RF Discharge Instructions Instructions: Pleural Effusion (ED) Additional Instructions: Please follow-up with your primary care physician and oncologist. Please return to the emergency department for any worsening symptoms Medical Decision Making 67-year-old female history of hepatocellular carcinoma, currently on Eliquis, presents with atraumatic right lower rib discomfort, no chest pain or shortness of breath no recent falls or injuries. Point discomfort over right lower rib margin, abdomen soft nontender notable ascites with fluid wave. Consider complication from hepatocellular carcinoma such as expanding tumor versus hemorrhage into tumor versus bony metastasis versus pathologic fracture versus rib bruise lower suspicion for pneumonia or PE. Screening labs imaging analgesia close reassessment 17: 04 evidence of small right-sided pleural effusion consider ascites that has traversed the diaphragm, lower suspicion for parapneumonic effusion or malignant effusion. Likely component of pleurisy related to pleural fluid. No evidence of rib fracture or pathologic fracture or bony metastasis HPI General Date/Time Provider Initiated Documentation: 11/05/22 12:16 . HPI Narrative: 67-year-old female history of hepatocellular carcinoma presents with right lower rib discomfort; denies trauma denies shortness of breath, recently started on Eliquis Related Data Home Medications Medication Instructions Recorded Confirmed omega-3 fatty acids-fish oil 300 1 ea PO DAILY 04/09/14 07/03/22 mg-1,000 mg capsule melatonin 3 mg-pyridoxine (vitamin 1 tab PO HS PRN 07/31/14 07/03/22 B6) 2 mg tablet sertraline 100 mg tablet (Zoloft) 100 mg PO DAILY 08/06/14 07/03/22 levothyroxine 25 mcg tablet 25 mcg PO DAILY 01/24/17 07/03/22 pantoprazole 40 mg tablet,delayed 40 mg PO DAILY 09/23/19 07/03/22 release propranolol 10 mg tablet 10 mg PO DAILY 09/23/19 07/03/22 doxycycline hyclate 100 mg tablet 100 mg PO BID #14 tabs 07/03/22 Previous Rx's Medication Instructions Recorded doxycycline hyclate 100 mg tablet 100 mg PO BID #14 tabs 07/03/22 Allergies Allergy/AdvReac Type Severity Reaction Status Date / Time Penicillins Allergy Severe Hives Unverified 09/23/19 10:35 General Stated Complaint: Chest/Rib SARAH: 3 Review of Systems Narrative: Review of Systems Constitutional: negative Eyes: negative ENT: negative Cardiovascular: negative Respiratory: negative Gastrointestinal: negative : negative Musculoskeletal: Right lower rib discomfort Skin: negative Neurologic: negative Psych: negative PFSH All Active Problems (Updated 11/05/22 @ 17:06 by Bryce Dempsey MD) Superficial thrombophlebitis of both legs (Acute) Pleural effusion (Acute) Hep C w/o coma, chronic (Acute) Portal hypertensive gastropathy (Acute) GI (gastrointestinal hemorrhage) (Chronic) Varices of esophagus determined by endoscopy (Acute) Hepatocellular carcinoma (Acute) Surgical History section X 2 Ligation of fallopian tube Social History Smoking/Tobacco Use Status: Former Tobacco Use Smoking risk assessment performed?: Yes Alcohol Intake: former Drug use: Occasionally Substance use type: marijuana Details: marijuana at bedtime Do you feel safe at home: Yes Do you feel safe in your relationship?: Yes Exam Narrative Exam Narrative: Physical Examination General: alert, awake, cooperative, resting comfortably, no acute distress HEENT: normocephalic, atraumatic; PERRL, EOM intact, conjunctiva normal; no nasal discharge; moist mucous membranes, oral and pharyngeal mucosa normal, tolerating secretions Neck: supple, trachea midline; full ROM Chest: normal to inspection; discomfort when palpating over right lower ribs without palpable deformity crepitus or step-off Respiratory: normal respiratory effort, speaking in full sentences, clear to auscultation, no wheezing, rales or rhonchi Cardiac: regular rate, regular rhythm, S1S2 intact, no murmurs rubs or gallops GI: abdomen soft, non-tender, ascites with fluid wave nonperitoneal Skin: no lesions, rashes or trauma appreciated Neuro: AAOx3, normal speech, moving all extremities Extremities:no signs of trauma Psych: Appropriate mood and affect Course Vital Signs Vital signs: Vital Signs Temperature 36.8 C 11/05/22 12:16 Pulse 69 11/05/22 12:16 Respiratory Rate 18 11/05/22 12:16 Blood Pressure 135/63 11/05/22 12:16 Pulse Oximetry 99 11/05/22 12:16 Temperature 36.8 C 11/05/22 12:16 Temperature Source Skin 11/05/22 12:16 Pulse 69 11/05/22 12:16 Respiratory Rate 18 11/05/22 12:16 Blood Pressure 135/63 11/05/22 12:16 Pulse Oximetry 99 11/05/22 12:16 Oxygen Delivery Method Room Air 11/05/22 12:16 Oxygen Flow Rate 0 11/05/22 12:16 Pain Level 8 11/05/22 12:16
[2022-11-05 13:44] LABS: Abs Immature Grans 0.02 10^3/uL (0.0-0.06); Absolute Basophil Count 0.02 10^3/uL (0.0-0.2); Absolute Eosinophil Count 0.11 10^3/uL (0.0-0.7); Absolute Lymphocyte Count 0.42 10^3/uL (1.2-3.4); Absolute Monocyte Count 0.66 10^3/uL (0.1-0.8); Absolute Neutrophil Count 3.41 10^3/uL (1.2-6.7); Basophils % 0.4; Eosinophils % 2.4; HCT 36.4 % (36.0-46.0); HGB 12.3 g/dL (11.2-15.7); Immature Grans % 0.4; Lymphocytes % 9.1; MCH 27.2 pg (27.0-33.0); MCHC 33.8 % (32.0-36.0); MCV 80 fL (80-95); MPV 9.9 fL (8.0-11.0); Monocytes % 14.2; Neutrophils % 73.5; Platelet Count 121 10^3/uL (130-400); RBC 4.53 10^6/uL (3.93-5.22); RDW-SD 52.5 fL; WBC 4.64 10^3/uL (4.4-10.8)
[2022-11-05 13:58] LABS: ALT 19 U/L (14-59); AST 25 U/L (15-37); Albumin 3.1 g/dL (3.4-5.0); Alkaline Phosphatase 71 U/L (46-116); Anion Gap 7.4 mmol/L (3-11); BUN 9 mg/dL (7-18); Bilirubin, Total 0.7 mg/dL (0.2-1.0); CO2 26.6 mmol/L (21.0-32.0); CREATININE 0.8 mg/dL (0.55-1.02); Calcium 8.6 mg/dL (8.5-10.1); Chloride 106 mmol/L (98-107); Estimated GFR 79.71 (mL/min/1.73m2); Glucose 100 mg/dL (74-106); Potassium 3.9 mmol/L (3.5-5.1); Sodium 140 mmol/L (136-145); Total Protein 7.6 g/dL (6.4-8.2)
[2022-11-05 15:21] LABS: INR 1.2 (0.9-1.1); Prothrombin Time 12.3 sec (9.3-11.0)
[2022-11-05] MEDS: Normal Saline Flush 10 ML SYR IVP (15:28)
[2022-11-05] MEDS: Omnipaque 350 MG/ML 100 ML BTL IJ (15:29)
[2022-11-05] MEDS: Normal Saline - Diluent 50 ML VIAL IJ (15:29)
== END 2022-11-05 17:21 | disposition home or self-care (01) ==
PROVIDERS: Emergency Provider Emergency Medicine; PCP Family Medicine
DX: R07.81 Pleurodynia (principal); J90 Pleural effusion, not elsewhere classified; C22.0 Liver cell carcinoma; Z92.21 Personal history of antineoplastic chemotherapy; Z79.01 Long term (current) use of anticoagulants; Z87.891 Personal history of nicotine dependence
CPT/HCPCS: 36415; 80053; 96372; 99285; 74177; 85025; 85610; 85730; 99283; J1885; J3490

== ENCOUNTER 2022-11-18 13:28 | Outpatient (CLI) | payer MEDICARE, MEDICAID, SELFPAY ==
--- NOTE | 2022-11-18 14:13 | DI.RAD_ITS ---
Exam(s) XR CHEST 2V PA LATERAL EXAM: XR CHEST 2V PA LATERAL CLINICAL HISTORY: PLEURAL EFFUSION, J90. TECHNIQUE: 2D digital imaging was performed. COMPARISON: CR RIGHT RIBS TO INCLUDE CXR from 03/26/2011 FINDINGS: 2 views: Heart size is normal. Retrocardiac hiatal hernia noted small-moderate size. The upper mediastinum i s not widened. Lungs are clear. No infiltrates nor pleural effusions. Pleural based density laterally on the right side noted which is possibly related to healed rib fract ure site. IMPRESSION: No acute pulmonary findings.Right lateral chest pleural based density which may be related to healed rib fracture site DATA REPOSITORY: RADIATION DOSE DELIVERED:
== END 2022-11-18 13:48 ==
LOC: DI 13:30
PROVIDERS: PCP Family Medicine; Visit Provider Family Medicine
DX: J90 Pleural effusion, not elsewhere classified (principal)
CPT/HCPCS: 71046

== ENCOUNTER 2022-11-18 18:17 | Outpatient (REF) | payer MEDICARE, MEDICAID, SELFPAY ==
[2022-11-18 15:53] LABS: ALT 21 U/L (14-59); AST 26 U/L (15-37); Albumin 3.3 g/dL (3.4-5.0); Alkaline Phosphatase 75 U/L (46-116); Anion Gap 10.4 mmol/L (3-11); BUN 7 mg/dL (7-18); Bilirubin, Total 0.8 mg/dL (0.2-1.0); CO2 26.6 mmol/L (21.0-32.0); CREATININE 0.7 mg/dL (0.55-1.02); Chloride 102 mmol/L (98-107); Estimated GFR 93.56 (mL/min/1.73m2); Glucose 101 mg/dL (74-106); Magnesium 1.9 mg/dL (1.8-2.4); Potassium 4.1 mmol/L (3.5-5.1); Sodium 139 mmol/L (136-145); Total Protein 7.9 g/dL (6.4-8.2)
== END 2022-11-18 18:18 | disposition home or self-care (01) ==
LOC: NCHCN 18:17
PROVIDERS: PCP Family Medicine; Visit Provider Family Medicine
DX: R60.0 Localized edema; C22.0 Liver cell carcinoma
CPT/HCPCS: 80053; 83735

== ENCOUNTER → 2022-11-25 18:17 | Outpatient (CLI) | payer MEDICARE, MEDICAID, SELFPAY ==
--- NOTE | 2022-11-25 | DI.CT_ITS ---
Exam(s) CT HEAD WO EXAM: CT HEAD WO CLINICAL HISTORY: LOSS OF BALANCE, R26.89,? CVA,LT LEG HAS LOST COORDINATION. TECHNIQUE: Imaging Protocol: Axial computed tomography images with coronal and sagittal reformatted images were created and reviewed COMPARISON: No exams were available for comparison FINDINGS: Ventricles and Extra axial spaces: Normal in size and morphology for the patient's age. Hemorrhage: None. Cerebral parenchyma: No evidence of acute infarct or mass. Midline shift: None. Brainstem/Cerebellum: Normal. Calvarium: Normal. Visualized Paranasal sinuses/Mastoids: Clear. Soft Tissues: Unremarkable. IMPRESSION: No acute intracranial process. RADIATION DOSE DELIVERED: 668.03mGy.cm Total DLP DATA REPOSITORY: All CT scans at this facility are submitted to the National Radiology Data Registry (NRDR) Dose Index Registry (DIR) with the [employer] (ACR). RADIATION OPTIMIZATION: All CT scans at this facility use at least one of these dose optimization te chniques: automated exposure control; mA and/or kV adjustment per patient size (includes targeted exa ms where dose is matched to clinical indication); or iterative reconstruction.
== END ==
PROVIDERS: PCP Family Medicine; Visit Provider Family Medicine
DX: R26.89 Other abnormalities of gait and mobility (principal)
CPT/HCPCS: 70450

== ENCOUNTER → 2022-11-25 18:23 | Outpatient (CLI) | payer MEDICARE, MEDICAID, SELFPAY ==
--- NOTE | 2022-11-25 14:55 | DI.RAD_ITS ---
Exam(s) XR RIBS ONLY RT EXAM: XR RIBS ONLY RT CLINICAL HISTORY: RT-SIDED RIB PAIN, R07.81, S/P FALL. COMPARISON: CT CT CHEST WO from 12/18/[address] ABDOMEN PELVIS W from 11/05/2022 CR XR CHEST 2V PA LATERAL from 11/18/2022 FINDINGS: LUNGS: Clear. No pneumothorax is seen. BONES: There is a nondisplaced fracture the right 7th rib laterally seen on the prior chest x-ray. T he fracture appears subacute. There is minimal blunting at the right costophrenic angle consistent w ith small effusion. Lungs are otherwise clear.. No bony destructive lesion is seen. IMPRESSION: Subacute appearing fracture of the right 7th rib. Small right effusion.
== END ==
PROVIDERS: PCP Family Medicine; Visit Provider Family Medicine
DX: S22.31XA Fracture of one rib, right side, initial encounter for closed fracture (principal); X58.XXXA Exposure to other specified factors, initial encounter
CPT/HCPCS: 70450; 71100

== ENCOUNTER 2022-12-15 11:40 | Inpatient (IN) | payer MEDICARE, MEDICAID, SELFPAY ==
[2022-12-15] VITALS (44 sets, daily range): BP systolic 79–108; BP diastolic 47–60; PULSE 86–116; RESP 18–28; TEMP 35.8; O2SAT 95–98
--- NOTE | 2022-12-15 12:00 | DI.CT_ITS ---
Exam(s) CT HEAD CERV SPINE FACIAL WO EXAM: CT HEAD CERV SPINE FACIAL WO CLINICAL HISTORY: fall, facial pain. TECHNIQUE: Imaging Protocol: Axial computed tomography images with coronal and sagittal reformatted images were created and reviewed COMPARISON: CT CT HEAD WO from 11/25/2022 FINDINGS: The examination is limited due to patient motion artifact. CT Head: Ventricles and Extra axial spaces: Normal in size and morphology for the patient's age. Hemorrhage: None. Cerebral parenchyma: No evidence of an acute territorial infarct. Midline shift: None. Brainstem/Cerebellum: Normal. Calvarium: Normal. Visualized Paranasal sinuses/Mastoids: Clear. Soft Tissues: Unremarkable. CT Face: Facial Bones: No definite fracture is noted in facial bones. Sinuses and Mastoids: There is mild mucosal thickening in the maxillary sinuses. The remaining visu alized paranasal sinuses are clear. No fluid levels are seen. Globes, extraocular muscles, optic nerves and retrobulbar fat: Normal. Upper aerodigestive tract: Normal. Mandible and bilateral temporomandibular joints: Normal. Soft tissues: Normal. CT Cervical Spine: Bones: No acute fracture or subluxation. There are degenerative changes seen in the cervical spine. Soft Tissues: Unremarkable. Lung Apices: There is a large right pleural effusion. IMPRESSION: 1. No acute intracranial process. 2. No acute fracture or subluxation in the cervical spine. 3. No acute facial fracture. 4. There is a large right pleural effusion. 5. Findings were discussed with the emergency department on 12/15/2022. RADIATION DOSE DELIVERED: 2,387.42mGy.cm Total DLP DATA REPOSITORY: All CT scans at this facility are submitted to the National Radiology Data Registry (NRDR) Dose Index Registry (DIR) with the [employer] (ACR). RADIATION OPTIMIZATION: All CT scans at this facility use at least one of these dose optimization te chniques: automated exposure control; mA and/or kV adjustment per patient size (includes targeted exa ms where dose is matched to clinical indication); or iterative reconstruction.
--- NOTE | 2022-12-15 12:00 | RT.EKG_ITS ---
APPROVED REPORT Exam: Resting ECG Reason for Exam: fall, chest pain Patient Location: E HR:110 bpm ECG Measurements Heart Rate 110 AXIS WY 133 P 56 QRSd 82 QRS 23 QT 359 T 44 QTc 485 Conclusion Sinus tachycardia...rate> 99 Low voltage, extremity leads...all extremity leads <0.5mV
--- NOTE | 2022-12-15 12:08 | DI.CT_ITS ---
Exam(s) CT CHEST/ABD/PEL W CT THORACIC LUMBAR SPINE REC EXAM: CT CHEST/ABD/PEL W and CT thoracic and lumbar spine recons: CLINICAL HISTORY: fell, pain in anterior chest and upper abdomen TECHNIQUE: Imaging Protocol: Axial computed tomography images with coronal and sagittal reformatted images were created and reviewed CONTRAST MATERIAL: Intravenous: Omnipaque 350 contrast volume:100 mL Oral: No COMPARISON: CT CT ABDOMEN PELVIS W from 11/05/[address] THORACIC LUMBAR SPINE REC from 12/15/2022 FINDINGS: The examination is limited due to patient motion artifact. CHEST: Tracheobronchial tree: Patent where visualized. Pulmonary parenchyma: Small predominantly peripheral opacities are seen in the lungs bilaterally. Th ere is a large right pleural effusion with subjacent infiltrate which may represent atelectasis or pn eumonia. There is a nodular opacity seen in the medial aspect of the right middle lobe. Metastatic disease should be considered. There are air bronchograms. This may represent atelectasis pneumonia. Visualized thyroid gland: Unremarkable. Mediastinum and Jelena: There are supraclavicular adenopathy. The largest mass measures 2.3 x 3.3 cm. The esophagus is unremarkable. Pleura: No pneumothorax or left pleural effusion. Heart: Cardiomegaly. Coronary artery calcification. No pericardial effusion. Pulmonary arteries: No evidence of a pulmonary embolism to the segmental level. Aorta: Thoracic aorta non-dilated. Atherosclerosis. Lymph nodes: No axillary adenopathy. Soft tissues: Unremarkable. Bones:Within normal limits for the patient's age. There is a an acute displaced fracture the postero lateral aspect of this right 7th rib. There is a healing subacute fracture of the posterolateral asp ect of the 8th rib. These areas were not included on the prior CT examination. Thoracic spine CT recons: No acute fractures or subluxations are present. ABDOMEN: Liver: The soft tissue mass adjacent to or within the liver posteriorly is unchanged. There is an ar ea of decreased attenuation within the liver measuring 2.7 x 2.6 cm. This area is more pronounced on the current examination. The liver has a nodular appearance suggesting hepatic cirrhosis. There ar e again seen enlarged lymph nodes in the right upper quadrant. There is perihepatic ascites. There is also ascites seen in the pelvis. No measurable mass. Portal, Superior Mesenteric, and Splenic Veins: Unremarkable. Gallbladder and Biliary Tract: Please see the above section under the liver. Pancreas: Normal density, no abnormal calcifications or inflammatory process. Spleen: Splenomegaly. Perisplenic ascites. Adrenals: No masses seen. Kidneys: Normal size, contour and axis. No radiodense stones or obstructive uropathy. No masses seen. Abdominal Aorta: Abdominal portion non-dilated. Atherosclerosis. Bowel: There is again seen thickening of the wall of the hepatic flexure there is a large amount of s tool in the rectum without rectal wall thickening. There is no evidence of obstruction. Peritoneal Cavity: Abdominal pelvic ascites. No free air. Lymph Nodes: Please see the above section under liver. Bones: Within normal limits for the patient's age. Soft Tissues: Unremarkable. PELVIS: Bladder: Symmetric distention, no gross wall thickening. Reproductive Organs: Unremarkable as visualized. Lymph Nodes: Within normal limits. Bones: Within normal limits. CT lumbar spine recons: No acute fracture or subluxation. IMPRESSION: 1. Finding again of hepatic mass with probable involvement of the gallbladder. The patient has known hepatocellular carcinoma. 2. There is metastatic disease in the chest. 3. Acute fracture of the posterior aspect of the right 7th rib. Subacute 8th right rib fracture whic h shows evidence of healing. 4. No acute fracture of the thoracic or lumbar spine. 5. Large right pleural effusion and subjacent infiltrate. 6. Peripheral opacities in the lungs. Contusions, atelectasis or multifocal pneumonia. 7. Findings were discussed with Dr. Hurtado at 1:50 p.m. on 12/15/2022. RADIATION DOSE DELIVERED: Total DLP DATA REPOSITORY: All CT scans at this facility are submitted to the National Radiology Data Registry (NRDR) Dose Index Registry (DIR) with the [employer] (ACR). RADIATION OPTIMIZATION: All CT scans at this facility use at least one of these dose optimization te chniques: automated exposure control; mA and/or kV adjustment per patient size (includes targeted exa ms where dose is matched to clinical indication); or iterative reconstruction.
--- NOTE | 2022-12-15 12:10 | W.ED.GENAD ---
Discharge Plan Disposition Patient Disposition: Admit to [facility] Discharge Details Chief Complaint: Trauma Clinical Impression: Hepatocellular carcinoma, Blunt head trauma, Cervical strain, Blunt trauma of multiple sites of trunk, Right rib fracture, Pneumonia, Dehydration, Pleural effusion on right Primary Care Provider: Geovanna Barlow ED Provider: Ismael Hurtado Home Meds and New Rx's Prescriptions: No Action omega-3 fatty acids-fish oil 1 EACH capsule 1 ea PO DAILY sertraline [Zoloft] 100 MG tablet 100 mg PO DAILY Patient Comments: melatonin-pyridoxine (vit B6) 1 TAB tablet 1 tab PO HS PRN propranolol 10 mg tablet 10 mg PO DAILY pantoprazole 40 mg tablet,delayed release (DR/EC) 40 mg PO DAILY levothyroxine 25 MCG tablet 25 mcg PO DAILY doxycycline hyclate 100 mg tablet 100 mg PO BID Qty: 14 0RF Medical Decision Making 67 yo female with hx of hepatocellular carcinoma undergoing radiation not chemo currently who comes in after a fall. She states at 3am, unsure if it was 3am today or yesterday, she was going to bed and her legs slipped under her walker and she fell forward. She is unsure of loc. She has bruising to the left lateral cheek, has what appears to be pressure related ulcer that is stage 1 with intact skin other thena 2cm skin tear on the mid chest and also stage 1 on her entire upper abdomen. She is alert and orientedx4 currently. She has no focal deficits, perrl, eomi, has anterior chest tenderness and upper abdominal tenderness along with tenderness over T10 and L2. Given the fall and likely has been on the ground for over 24 hours, her entire oral mucosa is dry, will obtain ecg/troponin, cbc,cmp and ct head/face/c spine along with ct chest/abd/pelvis with recons of the spine for further evaluation. labs remarkable for wbc of 18, mild increase in BUN, lft's and bilirubin minimally elevated. CT showing right pleural effusion likely related to her liver disease, also shows possible pneumonia and right 7th posterior rib fracture, will cover for hcap given she's in hospitals frequently for radiation. cpk over 600. Given her age, multiple abnormalities on labs and imaging will discuss with hospitalist about admission. Troponin mildly elevated which I suspect is from the rhabdo, she denies any chest pain/pressure or dyspnea on my exam. I suspect her right pleural effusion is from hepatic hydrothorax, she's not requiring oxygen and feel she is still in need of iv fluids, will hold on spironolactone and lasix Differential Diagnosis Differential Diagnosis: fracture, contusion, electrolyte abnormality, rhabdo Medical Records Medical records reviewed: Yes I reviewed the patient's medical records. Imaging Data Radiologic Study: Attestation: I personally reviewed and interpreted this imaging study as follows: Imaging: CT Scan Radiologist's impression: no acute findings head/c spine ct Radiologic Study #2: Attestation: I personally reviewed and interpreted this imaging study as follows: Imaging: CT Scan Radiologist's impression: IMPRESSION: 1. Finding again of hepatic mass with probable involvement of the gallbladder.? The patient has known hepatocellular carcinoma. 2. There is metastatic disease in the chest.? 3. Acute fracture of the posterior aspect of the right 7th rib.? Subacute 8th right rib fracture which shows evidence of healing. 4. No acute fracture of the thoracic or lumbar spine. 5. Large right pleural effusion and subjacent infiltrate. 6. Peripheral opacities in the lungs.? Contusions, atelectasis or multifocal pneumonia. 7. Findings were discussed with Dr. Hurtado at 1:50 p.m. on 12/15/2022. Lab Data Lab results reviewed: Yes I reviewed the patient's lab results. ECG Data Attestation: I personally reviewed and interpreted this ECG (s) as follows: Prior ECG tracings: available for review Interpretation: sinus tachycardia, rate of 110, pr 133, no acute ischemic findings HPI General Mode of arrival: EMS. Date/Time Provider Initiated Documentation: 12/15/22 11:51. Information obtained by: patient and EMS. History of Present Illness 67 year old F presents to the emergency department with the chief complaint of fell, couldn't get up, described as moderate, Patient started experiencing this day(s) (1) and it has been constant. No relieving factors improve symptom(s), No exacerbating factors reported . Patient notes denies fever/chills and shortness of breath. Patient did receive the following treatments prior to arrival, none Related Data Home Medications Medication Instructions Recorded Confirmed omega-3 fatty acids-fish oil 300 1 ea PO DAILY 04/09/14 07/03/22 mg-1,000 mg capsule melatonin 3 mg-pyridoxine (vitamin 1 tab PO HS PRN 07/31/14 07/03/22 B6) 2 mg tablet sertraline 100 mg tablet (Zoloft) 100 mg PO DAILY 08/06/14 07/03/22 levothyroxine 25 mcg tablet 25 mcg PO DAILY 01/24/17 07/03/22 pantoprazole 40 mg tablet,delayed 40 mg PO DAILY 09/23/19 07/03/22 release propranolol 10 mg tablet 10 mg PO DAILY 09/23/19 07/03/22 doxycycline hyclate 100 mg tablet 100 mg PO BID #14 tabs 07/03/22 Previous Rx's Medication Instructions Recorded doxycycline hyclate 100 mg tablet 100 mg PO BID #14 tabs 07/03/22 Allergies Allergy/AdvReac Type Severity Reaction Status Date / Time Penicillins Allergy Severe Hives Unverified 12/15/22 12:35 General Stated Complaint: Trauma SARAH: 2 Review of Systems All systems reviewed & are unremarkable except as noted in HPI and below Constitutional Constitutional: Denies chills and Denies fever(s) Cardiovascular Cardiovascular: Reports chest pain and Denies dyspnea Respiratory Respiratory: Denies cough and Denies dyspnea Gastrointestinal Gastrointestinal: Reports abdominal pain, Denies nausea and Denies vomiting Genitourinary Genitourinary: Denies dysuria Integumentary/Breasts Skin/Breast: Denies rash Psychiatric Psychiatric: Denies depression PFSH All Active Problems (Updated 12/15/22 @ 14:28 by Ismael Hurtado MD) Superficial thrombophlebitis of both legs (Acute) Blunt head trauma (Acute) Cervical strain (Acute) Blunt trauma of multiple sites of trunk (Acute) Right rib fracture (Acute) Pneumonia (Acute) Dehydration (Acute) Pleural effusion on right (Acute) Hep C w/o coma, chronic (Acute) Portal hypertensive gastropathy (Acute) GI (gastrointestinal hemorrhage) (Chronic) Varices of esophagus determined by endoscopy (Acute) Hepatocellular carcinoma (Acute) Surgical History section X 2 Ligation of fallopian tube Social History Smoking/Tobacco Use Status: Unknown Smoking risk assessment performed?: Yes Alcohol Intake: former Drug use: Occasionally Substance use type: marijuana Details: marijuana at bedtime Do you feel safe at home: Yes Do you feel safe in your relationship?: Yes Exam Const General: no acute distress Orientation: alert [facility] Head: no palpable skull fracture Ears: external ears normal General nose exam: external nose normal Eyes General: appearance normal, both eyes and all related structures Neck Neck: normal visual inspection Chest Chest: tenderness Resp Effort & Inspection: normal respiratory effort and able to speak in complete sentences Auscultation: clear to auscultation bilaterally Cardio Rate: regular rate Heart Sounds: no murmurs GI Palpation: soft and tender Skin General skin exam: no rashes or lesions noted Neuro General: patient alert and patient oriented x3 Extrem General: normal to inspection Psych Mental Status: mental status grossly normal Course Vital Signs Vital signs: Vital Signs Pulse 114 H 12/15/22 11:41 Respiratory Rate 22 12/15/22 11:41 Pulse 114 H 12/15/22 11:41 Respiratory Rate 22 12/15/22 11:41 Respiratory Effort Normal 12/15/22 12:00 Blood Pressure Position Supine 12/15/22 11:41 Oxygen Delivery Method Room Air 12/15/22 11:41 Oxygen Flow Rate 0 12/15/22 11:41 Pain Level 7 12/15/22 11:41 PAWSS Have you Been Recently Intoxicated or Drunk Within the Last 30 days?: Yes Have you Ever Experienced Previous Episodes of Alcohol Withdrawal?: No Have you ever Experienced Withdrawal Seizures?: No Have you ever Experienced Delirium Tremens(DT)s?: No Have you ever undergone Alcohol Rehabilitation Treatment (i.e, inpt ot outpatient treatment programs)?: No Have you ever Experienced Blackouts?: No Have you ever Combined Alcohol with other Downers within the last 90 days?: Yes Have you ever Combined Alcohol with any other Substance of Abuse during the last 90 days?: Yes Positive Blood Alcohol level on Presentation? [PCS.BAL]: Unable to Obtain Evidence of Increased Autonomic Activity (i.e. HR>120, tremor, sweating, agitation, nausea)?: No Result: 3
[2022-12-15 12:27] LABS: Abs Immature Grans 0.34 10^3/uL (0.0-0.06); Absolute Monocyte Count 2.09 10^3/uL (0.1-0.8); Basophils % 0.3; HCT 34.8 % (36.0-46.0); HGB 11.8 g/dL (11.2-15.7); Immature Grans % 1.9; Lymphocytes % 5.2; MCH 26.5 pg (27.0-33.0); MCHC 33.9 % (32.0-36.0); MCV 78 fL (80-95); MPV 9.5 fL (8.0-11.0); Monocytes % 11.6; Nucleated RBC 0.1 % (0.0-0.3); Platelet Count 209 10^3/uL (130-400); RBC 4.46 10^6/uL (3.93-5.22); RDW 18.9 % (11.7-14.6); RDW-SD 50.6 fL; WBC 18.02 10^3/uL (4.4-10.8)
[2022-12-15 12:29] LABS: Absolute Basophil Count 0.05 10^3/uL (0.0-0.2); Absolute Lymphocyte Count 0.94 10^3/uL (1.2-3.4)
[2022-12-15 12:38] LABS: PTT Activated 26.3 sec (21.5-31.9); Prothrombin Time 16.7 sec (9.3-11.0)
[2022-12-15] MEDS: Normal Saline 1,000 ML 1000 ML IV (12:38)
[2022-12-15 12:39] LABS: INR 1.6 (0.9-1.1)
[2022-12-15 12:44] LABS: Creatine Kinase 618 U/L (26-192)
[2022-12-15] MEDS: Omnipaque 350 MG/ML 500 ML BTL-Imaging package IJ (12:49)
[2022-12-15] MEDS: Normal Saline - Diluent 50 ML VIAL IJ (12:50)
[2022-12-15 12:54] LABS: ALT 109 U/L (14-59); AST 288 U/L (15-37); Albumin 2.8 g/dL (3.4-5.0); Alkaline Phosphatase 88 U/L (46-116); Anion Gap 14.6 mmol/L (3-11); BUN 35 mg/dL (7-18); Bilirubin, Total 1.8 mg/dL (0.2-1.0); CO2 19.4 mmol/L (21.0-32.0); CREATININE 0.9 mg/dL (0.55-1.02); Calcium 9.2 mg/dL (8.5-10.1); Chloride 103 mmol/L (98-107); Glucose 95 mg/dL (74-106); Magnesium 2.2 mg/dL (1.8-2.4); Sodium 137 mmol/L (136-145); TSH (W/Ref FT4) 3.23 uIU/mL (0.36-3.74)
[2022-12-15 12:57] LABS: Diff Comment Agrees w/ Instrument; RBC Morphology Normal
[2022-12-15 13:03] LABS: ETHANOL BLOOD < 3.0 mg/dL (<10)
[2022-12-15 13:04] LABS: Troponin I 195 ng/L (<or=60)
[2022-12-15 14:16] LABS: Bilirubin Small (Negative); Blood Moderate (Negative); Clarity Clear (Clear); Glucose Negative (Negative); Ketones 40 mg/dL (Negative); Leukocyte Esterase Negative (Negative); Nitrite Negative (Negative); Specific Gravity 1.015 (1.005-1.025); pH 5.5 (5-8)
[2022-12-15] MEDS: Lidocaine 5% Patch 1 PATCH TP (14:18)
[2022-12-15 14:23] LABS: Bacteria Few HPF (Negative); Crystals Negative HPF (Negative); Epithelial Cells Few HPF (Negative); Mucus Trace (Negative); WBC 0-2 HPF (0-5)
[2022-12-15 14:24] LABS: C & S Indicated? No/Sq. Contamination
[2022-12-15] MEDS: CEFEPIME 2 GM in Normal Saline 100 ML IVPB (14:55)
[2022-12-15] MEDS: Normal Saline 1,000 ML 125 ML IV (14:56)
[2022-12-15 15:25] LABS: Troponin I 179 ng/L (<or=60)
[2022-12-15] MEDS: VANCOMYCIN/WATER (PEG) 1 GM/200 ML BAG IVPB (15:32)
[2022-12-15 15:59] LABS: Procalcitonin 0.1 ng/mL
--- NOTE | 2022-12-15 18:59 | HPE_ITS ---
Date of service: 12/15/22 Time of Service: 18:59 Assessment and Plan Assessment and plan (1) Blunt head trauma: Status: Acute Assessment and plan: Mechanical fall. No intracranial acute processes noted on CT Bruising of left mandibular area; denies pain. NT to palpation. Takes oxycodone prn at home; continue. Also prescribed prn IV dilaudid (2) Blunt trauma of multiple sites of trunk: Status: Acute Assessment and plan: Pain managment. PT (3) Right rib fracture: Status: Acute Assessment and plan: No pneumothorax noted. Pain managment. Lidoderm patch. (4) Pneumonia: Status: Acute Assessment and plan: CT: Peripheral opacities in the lungs.? Contusions, atelectasis or multifocal pneumonia On cefepime. WBC count elevated but this could secondary to trauma. Monitor. Procalcitonin 0.1 On cefepime. IS. (5) Pleural effusion on right: Status: Acute Assessment and plan: Previously noted on CT of 11/05/22. Received IV hydration on admission. Restart diuretics when appropriate. (6) GI (gastrointestinal hemorrhage): Status: Chronic Assessment and plan: Portal hypertension. Cont propanolol. Cont Protonix (7) Hepatocellular carcinoma: Status: Acute Assessment and plan: Metastatic. On rifaximin and lactulose. ammonia level pending. History of Present Illness History of Present Illness Chief Complaint: Fall Narrative: This is a 67 yo female with a h/o hepatocellular carcinoma not currently undergoing chemotherapy, portal hypertensive gastropathy, previous GI hemorrhage, esophageal varices. She presented to the ED after divulging that she fell while walking to her bed; tripped over her walker. She stated this occurred at appx 3AM but unclear if it was the morning of admission or the AM the day before. She unsure of whether or not she lost consciousness. She was found lying prone. She had bruising on her chest wall and left jaw. No SOA, palpitations, N/V, fever. ED: Vital Signs Pulse ?114 H ?12/15/22 11:41 Respiratory Rate ?22 ?12/15/22 11:41 Pulse ?114 H ?12/15/22 11:41 Respiratory Rate ?22 ?12/15/22 11:41 Respiratory Effort ?Normal ?12/15/22 12:00 Blood Pressure Position ?Supine ?12/15/22 11:41 Oxygen Delivery Method ?Room Air ?12/15/22 11:41 Oxygen Flow Rate ?0 ?12/15/22 11:41 Pain Level ?7 ?12/15/22 11:41 WBC count elevated at 18. BUN mildly elevated. Creatinine 0.9. INR 1.6. K 4. Bili 1.8. AST 288 ALT 109. CK 618. trop 195 > 179. Procal 0.1. EKG w/o ischemic changes. Sinus tach. CT head and C-spine w/o acute findings. CT chest/abd/pelvis: 1. Finding again of hepatic mass with probable involvement of the gallbladder.? The patient has known hepatocellular carcinoma. 2. There is metastatic disease in the chest.? 3. Acute fracture of the posterior aspect of the right 7th rib.? Subacute 8th right rib fracture which shows evidence of healing. 4. No acute fracture of the thoracic or lumbar spine. 5. Large right pleural effusion and subjacent infiltrate. 6. Peripheral opacities in the lungs.? Contusions, atelectasis or multifocal pneumonia. Review of Systems All systems reviewed & are unremarkable except as noted in HPI and below PFSH All Active Problems Superficial thrombophlebitis of both legs (Acute) Blunt head trauma (Acute) Cervical strain (Acute) Blunt trauma of multiple sites of trunk (Acute) Right rib fracture (Acute) Pneumonia (Acute) Dehydration (Acute) Pleural effusion on right (Acute) Hep C w/o coma, chronic (Acute) Portal hypertensive gastropathy (Acute) GI (gastrointestinal hemorrhage) (Chronic) Varices of esophagus determined by endoscopy (Acute) Hepatocellular carcinoma (Acute) Surgical History section X 2 Ligation of fallopian tube Social History Smoking/Tobacco Use Status: Unknown Smoking risk assessment performed?: Yes Alcohol Intake: former Drug use: Occasionally Substance use type: marijuana Details: marijuana at bedtime Housing: apartment Do you feel safe at home: Yes Do you feel safe in your relationship?: Yes Meds Allergies and Home Medications Allergies Allergy/AdvReac Type Severity Reaction Status Date / Time Penicillins Allergy Severe Hives Unverified 12/15/22 12:35 Home Medications Medication Instructions Recorded Confirmed Type omega-3 fatty acids-fish oil 300 1 ea PO DAILY 04/09/14 07/03/22 History mg-1,000 mg capsule melatonin 3 mg-pyridoxine (vitamin 1 tab PO HS PRN 07/31/14 07/03/22 History B6) 2 mg tablet sertraline 100 mg tablet (Zoloft) 100 mg PO BID 08/06/14 12/15/22 History levothyroxine 25 mcg tablet 25 mcg PO DAILY 01/24/17 12/15/22 History pantoprazole 40 mg tablet,delayed 40 mg PO DAILY 09/23/19 12/15/22 History release propranolol 10 mg tablet 10 mg PO BID 09/23/19 12/15/22 History doxycycline hyclate 100 mg tablet 100 mg PO BID #14 tabs 07/03/22 Rx apixaban 5 mg tablet (Eliquis) 5 mg PO BID 12/15/22 12/15/22 History ferrous sulfate 325 mg (65 mg 325 mg PO DAILY 12/15/22 12/15/22 History iron) tablet,delayed release furosemide 20 mg tablet 20 mg PO DAILY 12/15/22 12/15/22 History lactulose 10 gram/15 mL oral 30 ml PO DAILY 12/15/22 12/15/22 History solution lorazepam 0.5 mg tablet 0.5 mg PO HS PRN 12/15/22 12/15/22 History ondansetron HCl 4 mg tablet 4 mg PO Q8H PRN 12/15/22 12/15/22 History oxycodone 5 mg tablet 5 mg PO Q6H PRN 12/15/22 12/15/22 History rifaximin 550 mg tablet (Xifaxan) 550 mg PO BID 12/15/22 12/15/22 History spironolactone 50 mg tablet 50 mg PO DAILY 12/15/22 12/15/22 History Exam Const General: cooperative and no acute distress Nutritional Appearance: average body habitus Orientation: other (Drowsiness but attended to questions. ) [facility] Head: no palpable skull fracture and normocephalic Ears: external ears normal General nose exam: external nose normal Face and sinus: ecchymosis (left mandibular area) Mouth: mucous membranes dry Eyes General: appearance normal, both eyes and all related structures Sclera: sclerae normal Neck Neck: normal visual inspection and full ROM Chest Chest: tenderness Resp Effort & Inspection: normal respiratory effort and able to speak in complete sentences Auscultation: clear to auscultation bilaterally Cardio Rate: tachycardic Rhythm: regular rhythm Heart Sounds: S1 normal, S2 normal and no murmurs GI Palpation: soft, not rigid and nontender Skin General skin exam: no rashes or lesions noted Neuro General: patient awake, patient oriented x3 and no focal motor deficits Extrem General: normal to inspection, no calf tenderness and edema Laterality: bila teral (nonpitting) Psych Mental Status: mental status grossly normal Results Labs 12/15/22 12:11 12/15/22 12:11 Labs: Laboratory Results - last 24 hr 12/15/22 12/15/22 12/15/22 12:11 12:11 12:11 WBC 18.02 H RBC 4.46 Hgb 11.8 Hct 34.8 L MCV 78 L MCH 26.5 L MCHC 33.9 RDW 18.9 H Plt Count 209 MPV 9.5 Immature Gran % 1.9 Neutrophils % 81.0 Lymphocytes % 5.2 Monocytes % 11.6 Eosinophils % 0.0 Basophils % 0.3 Nucleated RBC % 0.1 Absolute Neutrophils 14.60 H Absolute Lymphocytes 0.94 L Absolute Monocytes 2.09 H Absolute Eosinophils 0.00 Absolute Basophils 0.05 RBC Morphology Normal PT 16.7 H INR 1.6 H APTT 26.3 Sodium 137 Potassium 4.0 Chloride 103 Carbon Dioxide 19.4 L Anion Gap 14.6 H BUN 35 H Creatinine 0.9 Est GFR (CKD-EPI 2020) 69.20 Glucose 95 Calcium 9.2 Magnesium 2.2 Total Bilirubin 1.8 H AST 288 H ALT 109 H Alkaline Phosphatase 88 Creatine Kinase Troponin I 195 H* Total Protein 7.0 Albumin 2.8 L Procalcitonin TSH 3.23 Urine Color Urine Clarity Urine pH Ur Specific [place] Urine Protein Urine Ketones Urine Blood Urine Nitrite Urine Bilirubin Urine Urobilinogen Ur Leukocyte Esterase Urine RBC Urine WBC Ur Epithelial Cells Urine Crystals Urine Bacteria Urine Casts Urine Mucus Ur Culture Indicated? Urine Glucose Ethyl Alcohol < 3.0 Patient ABO/Rh Antibody Screen 12/15/22 12/15/22 12/15/22 12:11 12:11 14:05 WBC RBC Hgb Hct MCV MCH MCHC RDW Plt Count MPV Immature Gran % Neutrophils % Lymphocytes % Monocytes % Eosinophils % Basophils % Nucleated RBC % Absolute Neutrophils Absolute Lymphocytes Absolute Monocytes Absolute Eosinophils Absolute Basophils RBC Morphology PT INR APTT Sodium Potassium Chloride Carbon Dioxide Anion Gap BUN Creatinine Est GFR (CKD-EPI 2020) Glucose Calcium Magnesium Total Bilirubin AST ALT Alkaline Phosphatase Creatine Kinase 618 H Troponin I Total Protein Albumin Procalcitonin TSH Urine Color Yellow Urine Clarity Clear Urine pH 5.5 Ur Specific [place] 1.015 Urine Protein 30 H Urine Ketones 40 H Urine Blood Moderate H Urine Nitrite Negative Urine Bilirubin Small H Urine Urobilinogen 1.0 H Ur Leukocyte Esterase Negative Urine RBC 10-20 H Urine WBC 0-2 Ur Epithelial Cells Few Urine Crystals Negative Urine Bacteria Few Urine Casts Urine Mucus Trace Ur Culture Indicated? No/Sq. Contamination Urine Glucose Negative Ethyl Alcohol Patient ABO/Rh A Positive Antibody Screen NEGATIVE 12/15/22 12/15/22 14:45 14:50 WBC RBC Hgb Hct MCV MCH MCHC RDW Plt Count MPV Immature Gran % Neutrophils % Lymphocytes % Monocytes % Eosinophils % Basophils % Nucleated RBC % Absolute Neutrophils Absolute Lymphocytes Absolute Monocytes Absolute Eosinophils Absolute Basophils RBC Morphology PT INR APTT Sodium Potassium Chloride Carbon Dioxide Anion Gap BUN Creatinine Est GFR (CKD-EPI 2020) Glucose Calcium Magnesium Total Bilirubin AST ALT Alkaline Phosphatase Creatine Kinase Troponin I 179 H* Total Protein Albumin Procalcitonin 0.1 TSH Urine Color Urine Clarity Urine pH Ur Specific [place] Urine Protein Urine Ketones Urine Blood Urine Nitrite Urine Bilirubin Urine Urobilinogen Ur Leukocyte Esterase Urine RBC Urine WBC Ur Epithelial Cells Urine Crystals Urine Bacteria Urine Casts Urine Mucus Ur Culture Indicated? Urine Glucose Ethyl Alcohol Patient ABO/Rh Antibody Screen Last Vital Signs Temp 35.8 C L 12/15/22 16:20 Pulse 102 H 12/15/22 16:20 Resp 20 12/15/22 16:20 BP 97/60 L 12/15/22 16:20 Pulse Ox 96 12/15/22 16:20 PAWSS Have you Been Recently Intoxicated or Drunk Within the Last 30 days?: Yes Have you Ever Experienced Previous Episodes of Alcohol Withdrawal?: No Have you ever Experienced Withdrawal Seizures?: No Have you ever Experienced Delirium Tremens(DT)s?: No Have you ever undergone Alcohol Rehabilitation Treatment (i.e, inpt ot outpatient treatment programs)?: No Have you ever Experienced Blackouts?: No Have you ever Combined Alcohol with other Downers within the last 90 days?: Yes Have you ever Combined Alcohol with any other Substance of Abuse during the last 90 days?: Yes Positive Blood Alcohol level on Presentation? [PCS.BAL]: Unable to Obtain Evidence of Increased Autonomic Activity (i.e. HR>120, tremor, sweating, agitation, nausea)?: No Result: 3 Time Spent Time spent with Patient: 40-54 minutes Time was spent: preparing to see the patient(eg.review tests), obtaining and/or reviewing separately otained hiistory, ordering medications,tests, procedures, referring, communicating with other health childbirth and infant care teacher, indepentently i nterpreting results, counseling the patient and care coordination
[2022-12-15] MEDS: Apixaban 5 MG TAB PO (19:16)
[2022-12-15] MEDS: Rifaximin 550 MG TAB PO (19:16)
[2022-12-15] MEDS: oxyCODONE 5 MG TAB PO (19:19)
[2022-12-15 19:45] LABS: Troponin I 137 ng/L (<or=60)
[2022-12-15 21:03] LABS: Ammonia 22 umol/L (11-32)
[2022-12-16] VITALS (8 sets, daily range): BP systolic 98–114; BP diastolic 64–77; PULSE 94–102; RESP 16–18; TEMP 35.9–37.1; O2SAT 88–94
--- NOTE | 2022-12-16 | DI.US_ITS ---
APPROVED REPORT EXAM: Comprehensive 2D, Doppler, and color-flow Echocardiogram Patient Location: In-Patient Room/Bed: 228 Weekend Receptionist: Ryan Cota RDCS (AE) Indications: elevated troponin Other Information Study Quality: Fair. Technically limited study due to inability to position patient. Conclusion Mild concentric left ventricular hypertrophy. Ejection fraction is 55 to 60%. No segmental wall mot ion abnormalities are identified Normal right ventricular size and systolic function Both atria are normal in size Aortic valve is sclerotic and probably trileaflet without stenosis or regurgitation Mitral annular calcification, mild mitral regurgitation Moderate tricuspid regurgitation with normal estimated right ventricular systolic pressure of 26 mmHg Small pericardial effusion Wall motion Left Ventricle The left ventricle is normal size. The left ventricular systolic function is normal. The left ventric ular ejection fraction is within the normal range. Mild concentric left ventricular hypertrophy. Ther e is normal LV segmental wall motion. There is no ventricular septal defect visualized. LVEF is 55-60 %. Right Ventricle The right ventricle is normal size. The right ventricular systolic function is normal. The RVSP is 26 .5 mmHg. Atria The left atrium size is normal. The right atrium size is normal. The interatrial septum is intact wit h no evidence for an atrial septal defect. Aortic Valve The Aortic valve is sclerotic. Aortic valve is probably trileaflet. There is no aortic valvular steno sis. No aortic regurgitation is present. Mitral Valve Moderate mitral annular calcification. No evidence of mitral valve stenosis. Mild mitral regurgitatio n. Tricuspid Valve The tricuspid valve is normal in structure. There is no tricuspid valve stenosis. Moderate tricuspid regurgitation. Pulmonic Valve The pulmonary valve is normal in structure. There is no pulmonic valvular stenosis. Trace pulmonic re gurgitation. Great Vessels The aortic root is normal in size. The ascending aorta is normal in size. Aortic arch is normal in ca liber. IVC is normal in size and collapses >50% with inspiration. Pericardium Small pericardial effusion. 2D Dimensions IVSD d PLAX 1.10 cm F: 0.6-1.0 Ao Root d 2.61 cm F: 2.7 - 3.3 LVPW d PLAX 1.20 cm F: 0.6 - 1.0 Ao Asc Diam d 2.34 cm F: 2.3 - 3.1 LVID d PLAX 2.60 cm F: 3.8 - 5.2 LVDs 2.00 cm F: 2.2 - 3.5 LV EF Teichholz 50.0 % FS 51.16 % LV EDV (Teich) 46.0 mL LV ESV (Teich) 7.6 mL Stroke Vol Index (Teich) 22.56 Auto EF LV EDV A4C 85.2 mL LV EDV A2C 56.6 mL LV EDV BP LV ESV A4C 41.3 mL LV ESV A2C 27.4 mL LV ESV BP LVEF(%) A4C 51.5 % LVEF(%) A2C 51.7 % LVEF(%) BP LV SV A4C 43.9 ml LV SV A2C 29.3 ml LV SV BP LV CO A4C 3.6 L/min LV CO A2C 2.9 L/min LV CO BP HR A4C 81.64 BPM HR A2C 98.63 BPM LV EDV Index (BP) LA Volume LA Length A4C 4.4 cm LA Length A2C LA Area A4C s 11.10 cm2 LA Area A2C s LA Vol A4C A-L 23.54 mL LA Vol A2C A-L LA Vol Biplane A-L LA Vol A4C MOD 22.9 mL LA Vol A2C MOD LA Vol BP MOD RA Volume RA Area A4C 8.0 cm2 RA ESV A4C (A-L) 12.7mL RA Vol/BSA A4C A-L RA Length A4C 4.3 cm RA ESV A4C (MOD) 12.3mL LV Diastology MV E' medial 0.072 (>0.07 m/s) MV E Vmax 0.69 (0.4-1.3 m/s) MV E/E' MED 9.66 (<14) MV A Vmax 1.45 (0.4-1.3 m/s) MV E' lateral 0.053 (>0.1 m/s) E/A Ratio 0.5 MV E/E' LAT 13.07 (<14) MV E' Average 0.063 m/s MV E/E'(average) 11.11 Aortic Valve AoV Vmax 2.11 m/s LVOT Vmax 1.47 m/s AoV Peak Grad 17.7 mmHg LVOT Peak Grad 8.6 mmHg AoV Area (Vmax) 1.34 cm2 LVOT VTI 0.295 m AoV VTI 0.458 m LVOT Mean Grad 6.5 mmHg AoV Mean Jayden. 1.42 m/s LVOT SV 56.84 mL AoV Mean Grad 8.9 mmHg LVOT Diam s 1.55 cm AoV Area (VTI) 1.24 cm2 Velocity Ratio 0.70 Mitral Valve MV DT 193 (160-240 msec) Pulmonary Valve PV Vmax 1.19 (0.5-1.5 m/s) RVOT Vmax 0.84 m/s PV Peak Grad 5.7 mmHg RVOT Peak Gr. 2.8 mmHg PV Mean Jayden 0.78 m/s RVOT VTI 0.109 m PV Mean Grad 2.8 mmHg RVOT Mean Gr. 1.3 mmHg Tricuspid Valve RV-RA Gradient 3.00 mmHg TR Vmax 2.42 m/s TR Peak Grad 23.5 mmHg RVSP (TR) 26.5 mmHg
[2022-12-16] MEDS: HYDROmorphone 2 MG/ML SYR 0.5 MG IVP ×2 (00:05→15:48)
[2022-12-16] MEDS: oxyCODONE 5 MG TAB PO ×2 (04:29→20:10)
[2022-12-16] MEDS: Levothyroxine 25 MCG TAB PO (05:02)
[2022-12-16 07:23] LABS: Abs Immature Grans 0.21 10^3/uL (0.0-0.06); Absolute Basophil Count 0.03 10^3/uL (0.0-0.2); Absolute Neutrophil Count 10.68 10^3/uL (1.2-6.7); Basophils % 0.2; Eosinophils % 0.5; HCT 36.5 % (36.0-46.0); HGB 12.1 g/dL (11.2-15.7); Immature Grans % 1.6; Lymphocytes % 6.3; MCH 26.4 pg (27.0-33.0); MCHC 33.2 % (32.0-36.0); MCV 80 fL (80-95); MPV 9.9 fL (8.0-11.0); Monocytes % 10.7; Neutrophils % 80.7; Nucleated RBC 0.2 % (0.0-0.3); Platelet Count 150 10^3/uL (130-400); RBC 4.59 10^6/uL (3.93-5.22); RDW 19.9 % (11.7-14.6); RDW-SD 54.4 fL; WBC 13.23 10^3/uL (4.4-10.8)
[2022-12-16 07:35] LABS: Absolute Eosinophil Count 0.07 10^3/uL (0.0-0.7); Absolute Lymphocyte Count 0.83 10^3/uL (1.2-3.4); Absolute Monocyte Count 1.42 10^3/uL (0.1-0.8)
[2022-12-16 07:42] LABS: ALT 161 U/L (14-59); AST 296 U/L (15-37); Albumin 2.7 g/dL (3.4-5.0); Alkaline Phosphatase 91 U/L (46-116); Anion Gap 15.7 mmol/L (3-11); BUN 32 mg/dL (7-18); Bilirubin, Total 1.3 mg/dL (0.2-1.0); CO2 17.3 mmol/L (21.0-32.0); CREATININE 0.8 mg/dL (0.55-1.02); Chloride 102 mmol/L (98-107); Creatine Kinase 153 U/L (26-192); Estimated GFR 79.71 (mL/min/1.73m2); Glucose 102 mg/dL (74-106); Potassium 3.7 mmol/L (3.5-5.1); Sodium 135 mmol/L (136-145); Total Protein 6.9 g/dL (6.4-8.2)
[2022-12-16] MEDS: Sertraline 100 MG TAB PO (08:52)
[2022-12-16] MEDS: Lactulose 20 GM/30 ML CUP PO (08:52)
[2022-12-16] MEDS: Propranolol 10 MG TAB PO (08:52)
[2022-12-16] MEDS: Pantoprazole 40 MG TABCR PO (08:52)
[2022-12-16] MEDS: Rifaximin 550 MG TAB PO ×2 (08:52→20:10)
--- NOTE | 2022-12-16 08:52 | INITIAL_ITS ---
Date of service: 12/16/22 Time of Service: 08:52 Care Management Initial Assmt Initial Assessment REASON FOR HOSPITALIZATION:: Pneumonia, fall PREVIOUS FUNCTIONAL STATUS/SOCIAL/FAMILY SUPPORTS:: Cheli lives alone in an apartment in [facility]. . She had been independent with ADLs but recently has been weak and has just started to receive home health services. Cheli uses a cane and a walker for ambulatory assistance. CURRENT FUNCTIONAL STATUS:: Cheli was lying in bed when CM met with her. She was so weak at that time she was unable to hold a cup in her hand. CM had just begun to converse with Cheli when the Echocardiogram cryptological technician came to do testing. When CM returned later Cheli was sleepy and requested that the conversation continue tomorrow. It appears that Cheli may be a bit confused as she was unsure of the date and day of the week. It may also have been because she had been dozing. ADVANCE DIRECTIVES:: none on file Has patient been provided with info about the portal/API?: Yes CODE STATUS:: DNR/DNI INSURANCE COVERAGE / FINANCIAL ISSUES:: Medicare Financial Assist 100 PRIMARY CARE PHYSICIAN:: Geovanna Barlow POTENTIAL DISCHARGE NEEDS:: follow up with PCP and plan of care PATIENT/FAMILY EDUCATION NEEDS:: review of discharge instructions, limitations, activity, follow up plan, discuss [employer]' TRANSPORTATION:: via private vehicle with family PLAN:: Anticipate Cheli will be discharged home with no new services. She will follow up with her PCP and plan of care and transport with family. CM to follow and support discharge needs. PFSH All Active Problems (Updated 12/16/22 @ 15:03 by Alexus Yates MD) Discharge planning issues (Acute) DVT prophylaxis (Acute) Superficial thrombophlebitis of both legs (Acute) Blunt head trauma (Acute) Cervical strain (Acute) Blunt trauma of multiple sites of trunk (Acute) Right rib fracture (Acute) Pneumonia (Acute) Dehydration (Acute) Pleural effusion on right (Acute) Hep C w/o coma, chronic (Acute) Portal hypertensive gastropathy (Acute) GI (gastrointestinal hemorrhage) (Chronic) Varices of esophagus determined by endoscopy (Acute) Hepatocellular carcinoma (Acute) Surgical History section X 2 Ligation of fallopian tube Social History Smoking/Tobacco Use Status: Unknown Smoking risk assessment performed?: Yes Alcohol Intake: former Drug use: Occasionally Substance use type: marijuana Details: marijuana at bedtime Housing: apartment Do you feel safe at home: Yes Do you feel safe in your relationship?: Yes
[2022-12-16] MEDS: Apixaban 5 MG TAB PO ×2 (08:53→20:11)
[2022-12-16] MEDS: Spironolactone 50 MG TAB PO (08:53)
--- NOTE | 2022-12-16 14:30 | RT.EKG_ITS ---
APPROVED REPORT Exam: Resting ECG Reason for Exam: elevated troponin, fall Patient Location: I HR:98 bpm ECG Measurements Heart Rate 98 AXIS OK 135 P 55 QRSd 90 QRS -3 QT 383 T 7 QTc 490 Conclusion Sinus rhythm...normal P axis, V-rate 50- 99 Probable left atrial enlargement...P >50mS, <-0.10mV V1 Borderline low voltage, extremity leads...all extremity leads <0.6mV
--- NOTE | 2022-12-16 14:47 | W.PM.PROGNOT ---
Date of Service Date of service: 12/16/22 Time of Service: 14:47 Assessment and Plan Assessment and plan (1) Pneumonia: Status: Acute Assessment and plan: Has evidence of PNA by CT and is aspirating. Change abx to ceftriaxone/metronidazole. Speech therapy consulted. Obtain pneumonia studies. Encourage IS. Consider a thoracenthesis. Will consult general surgery. (2) Blunt head trauma: Status: Acute Assessment and plan: Due to a mechanical fall. CT head negative. I have scheduled tylenol 500 mg PO Q6hrs. Continue prn IV dilaudid; home oxycodone. (3) Blunt trauma of multiple sites of trunk: Status: Acute Assessment and plan: With rib fx. Lidocaine patches. schedule tylenol. Encourage IS. C/s general surgery. (4) Right rib fracture: Status: Acute Assessment and plan: As above lidocaine patches. C/s general surgery. (5) Pleural effusion on right: Status: Acute Assessment and plan: C/s general surgery for a thoracenthesis. Encourage IS. I am not sure of the etiology of the effusion: it could be transudative or exhudative or hemothorax in her case. (6) GI (gastrointestinal hemorrhage): Status: Chronic Assessment and plan: Portal hypertension. continue propranolol and protonix. She is on eliquis - we do not know her esophageal varices status. Will attempt to get GI records. (7) Hepatocellular carcinoma: Status: Acute Assessment and plan: Metastatic. Obtain medical records. C/s palliative care. Continue rifaximin and lactulose. Not encephalopathic clinically. (8) DVT prophylaxis: Status: Acute Assessment and plan: Therapeutic eliquis (9) Discharge planning issues: Status: Acute Assessment and plan: DNR/DNI C/s palliative care, PT, OT, speech. Subjective Subjective Interval history since last seen: C/o R-sided rib pain. C/o pain all over. Denies dizziness, SOB, nausea, abdominal pain. Nursing reports a high PVR by bladder scan and poor UOP today. Nursing has noted that the patient has a hard time swallowing and has been coughing. The patient states that she has had a cough forever, attributing it to her pleural effusion. The patient feels thirsty. Has been afebrile. Exam Narrative Exam Narrative: General: Pleasant tearful uncomfortable appearing frail female, in bed, A&Ox3 HEENT: EOMI, MMM; large ecchymosis L cheek/chin Heart: RRR, tachycardic Lungs: Diminished breath sounds B, R>L Abdomen: soft, nontender, nondistended Extremities: +1 edema BLEs, symmetric Objective Last Vital Signs Temp 36.8 C 12/16/22 07:56 Pulse 102 H 12/16/22 13:34 Resp 18 12/16/22 07:56 BP 113/71 12/16/22 07:56 Pulse Ox 93 12/16/22 07:56 Laboratory Results - last 24 hr 12/15/22 12/15/22 12/15/22 14:45 14:50 19:13 WBC RBC Hgb Hct MCV MCH MCHC RDW Plt Count MPV Immature Gran % Neutrophils % Lymphocytes % Monocytes % Eosinophils % Basophils % Nucleated RBC % Absolute Neutrophils Absolute Lymphocytes Absolute Monocytes Absolute Eosinophils Absolute Basophils VBG Lactate Sodium Potassium Chloride Carbon Dioxide Anion Gap BUN Creatinine Est GFR (CKD-EPI 2020) Glucose Calcium Total Bilirubin AST ALT Alkaline Phosphatase Ammonia Creatine Kinase Troponin I 179 H* 137 H* Total Protein Albumin Procalcitonin 0.1 12/15/22 12/15/22 12/16/22 19:35 20:45 06:50 WBC RBC Hgb Hct MCV MCH MCHC RDW Plt Count MPV Immature Gran % Neutrophils % Lymphocytes % Monocytes % Eosinophils % Basophils % Nucleated RBC % Absolute Neutrophils Absolute Lymphocytes Absolute Monocytes Absolute Eosinophils Absolute Basophils VBG Lactate 2.0 H Sodium 135 L Potassium 3.7 Chloride 102 Carbon Dioxide 17.3 L Anion Gap 15.7 H BUN 32 H Creatinine 0.8 Est GFR (CKD-EPI 2020) 79.71 Glucose 102 Calcium 9.0 Total Bilirubin 1.3 H AST 296 H ALT 161 H Alkaline Phosphatase 91 Ammonia 22 Creatine Kinase 153 Troponin I Total Protein 6.9 Albumin 2.7 L Procalcitonin 12/16/22 06:50 WBC 13.23 H RBC 4.59 Hgb 12.1 Hct 36.5 MCV 80 MCH 26.4 L MCHC 33.2 RDW 19.9 H Plt Count 150 MPV 9.9 Immature Gran % 1.6 Neutrophils % 80.7 Lymphocytes % 6.3 Monocytes % 10.7 Eosinophils % 0.5 Basophils % 0.2 Nucleated RBC % 0.2 Absolute Neutrophils 10.68 H Absolute Lymphocytes 0.83 L Absolute Monocytes 1.42 H Absolute Eosinophils 0.07 Absolute Basophils 0.03 VBG Lactate Sodium Potassium Chloride Carbon Dioxide Anion Gap BUN Creatinine Est GFR (CKD-EPI 2020) Glucose Calcium Total Bilirubin AST ALT Alkaline Phosphatase Ammonia Creatine Kinase Troponin I Total Protein Albumin Procalcitonin PAWSS Have you Been Recently Intoxicated or Drunk Within the Last 30 days?: Yes Have you Ever Experienced Previous Episodes of Alcohol Withdrawal?: No Have you ever Experienced Withdrawal Seizures?: No Have you ever Experienced Delirium Tremens(DT)s?: No Have you ever undergone Alcohol Rehabilitation Treatment (i.e, inpt ot outpatient treatment programs)?: No Have you ever Experienced Blackouts?: No Have you ever Combined Alcohol with other Downers within the last 90 days?: Yes Have you ever Combined Alcohol with any other Substance of Abuse during the last 90 days?: Yes Positive Blood Alcohol level on Presentation? [PCS.BAL]: Unable to Obtain Evidence of Increased Autonomic Activity (i.e. HR>120, tremor, sweating, agitation, nausea)?: No Result: 3 Time Spent with Patient Time Spent with Patient: 25-34 minutes Time was spent: preparing to see the patient(eg.review tests), obtaining and/or reviewing separately otained hiistory, ordering medications,tests, procedures, referring, communicating with other health manager critical care unit, indepentently interpreting results, counseling the patient and care coordination
--- NOTE | 2022-12-16 15:46 | SP_ITS ---
Date of service: 12/16/22 Time of Service: 15:46 Subjective Clinical (Bedside) Swallow Evaluation Speech Language Pathology Patient referred for Clinical Swallow Evaluation from Marianne Meng given poor tolerance of PO and possible pna. Precautions: Fall, Standard, DNR/DNI SUBJECTIVE: Patient received somnolent, lethargic, but easily rousable to voice and agreeable to evaluation, able to communicate wants/needs effectively; able to demonstrate comprehension of recommendations for safe p.o. intake upon discharge once deemed medically stable.? She denies any baseline difficulties with swallowing, voice, or speech. Per her primary nurse, she primarily was having trouble with holding cup and self-feeding, but was not coughing with liquids. She has not been wanting to eat. She reports she is in 10/10 pain all over at this time. Nursing notified and meds ordered. This is the best thing so far about my trip to the hospital.' (Ice cold water). ? HPI: Pt is a 67 year old female with likely now metastatic hepatocellular carcinoma, history of esophageal varices, admitted with traumatic injuries to head and trunk secondary to fall. Predisposing dysphagia risk factors: ?metastatic disease Clinical signs of possible chronic dysphagia: PNA Precipitating dysphagia risk factors / triggering event: weakness ? IMPRESSIONS & PLAN: Cheli appears with non-focal oral-motor weakness impacting her ability to manage and transit solid textures at this time. Mixed report from nursing regarding her tolerance of PO, but she appears at this time with intermittent poor tolerance of thin liquids. She states a preference to remain on thin liquids and not try thickened, given her low PO intake at this time I would hesitate to thicken liquids anyways, especially with a weak cough and without MBSS to justify it. She does have some wet vocal quality and delayed weak coughing which is improved with small sip size, fully upright positioning, and additional swallows. Benefits from cues to clear throat intermittently to prevent laryngeal invasion of suspected residue. Will place orders for puree/thin and focus on aggressive risk management strategies with nursing. If no improvement of overall weakness consider MBSS pending goals of care. Palliative consulted. Further OUTPATIENT PHYSICAL THERAPIST services: inpatient / patient to be followed while on unit, D/C recommendations pending palliative consult ? Instrumentation: ? VFSE/MBSS - pending progress and goals of care ? While on unit vs Outpatient? Diet Texture Modification(s): IDDSI Level(s) SOLIDS 4-Pureed Solids LIQUIDS 0-Thin Liquids with risk management as outlined Medication Intake: Whole vs crushed as able with Purees; Alter medications only as advised by MD or Pharmacist RISK MANAGEMENT: HOB upright as tolerated; upright for all PO intake. Encourage physical mobility as tolerated. Oral hygiene with suction kits q4h/every 4 hours or before/after PO intake, whichever occurs first using friction with toothbrush on all oral structures as tolerated, suction PRN ? Level of Assistance/Supervision: 1:1 Assistive feeding and positioning only by trained staff/family PO intake only when awake/alert, upright, and after oral care completed Strategies/Adaptations/Assistive Equipment: Reduce auditory and/or visual distractions when eating Provide verbal and/or visual cues to use recommended strategies Small sips and bites when eating Slow rate of intake Swallow between bites Alternate intake of liquids and solids Small+frequent meals throughout day Posture/Positioning Needs: Maintain upright position at least 30 minutes after meals, Avoid meals/snacks 2- 3 hours prior to reclining/sleeping, Sleep with head of bed elevated to reduce likelihood of nocturnal reflux Medical History (can copy from history & physical) Surgical History Family History Social History ? OBJECTIVE: Respiratory: room air, tolerates well but appears with very small breath groups and poor cough strength Language: Grossly WFL Hearing: WFL Mental Status: Alert and Oriented Speech: Mildly dysarthric and short breath groups likely in setting of fatigue and weakness Oral Motor Exam: ? Dentition ? Natural dentition ? Fair condition (many implants) ? Oral Mucosa ? Dry Good oral care ? CN V - Trigeminal ? Jaw Movement ? WFL vs mildly Impaired Vertical ROM? CN VII ? Labial/Facial ? Impaired strength ? CN IX ? Palate ? WFL ? CN X ? Laryngeal ? MPT ? Vocal quality ? Wet/Gurgly ? Breathy ? Volitional cough ? Weak ? CN XII ? Lingual ? Impaired strength ? Volitional Swallow ? Suspect reduced laryngeal elevation ? Suspect delayed onset of swallow ? Food items tested: ?? Ice: x2 IDDSI 0: x 10+ sips via tsp, cup edge, straw IDDSI 4: pudding x6 bites IDDSI 7: x 1 bite Oral phase: Difficulty with bolus manipulation Difficulty with a-p transport Difficulty chewing Residue Pharyngeal phase: Delayed swallow initiation Reduced hyolaryngeal elevation/excursion Cough after swallow Voice change after swallow? Throat clearing?(cued, which improved) Provided education to: Patient, Nursing, Topics Addressed: anatomy/physiology of swallowing mechanism, overt s/sx to monitor for re: potential aspiration of food / liquids, recommendations for improved oral care, relationship between respiratory function changes and deglutition, Rationale for recommendations as outlined below Outcome: Verbalized/demonstrated understanding Needs review/reinforcement Goals: Patient will tolerate safest/least restrictive diet of without s/sx aspiration. Patient/caregiver will be independent with aspiration precautions, diet modifications, and safe swallowing strategies. OUTPATIENT PHYSICAL THERAPIST CPT Code: 22662 Clinical Swallowing Evaluation Time spent: 35 minutes Coding Diagnoses CPT Codes EVALUATE SWALLOWING FUNCTION - 83270 ([id number])
[2022-12-16] MEDS: Lidocaine 5% Patch 1 PATCH TP (16:28)
[2022-12-16] MEDS: cefTRIAXone 1 GM/50 ML BAG IVPB (16:28)
[2022-12-16] MEDS: metroNIDAZOLE 500 MG/100 ML BAG 100 MG IVPB ×2 (17:39→23:02)
--- NOTE | 2022-12-16 18:12 | SCONE_ITS ---
Date of service: 12/16/22 Time of Service: 18:12 Assessment and Plan Assessment and plan (1) Pleural effusion on right: Status: Acute Assessment and plan: I do not think that thoracentesis will be helpful at this point. I cannot imagine that it would add much in terms of diagnostics given the extent of her hepatocellular carcinoma. The Hounsfield units are quite low, and the effusion was seen on previous imaging, so I do not think it is a traumatic hemothorax. Furthermore, she does not really seem to be symptomatic with regards to the pleural effusion itself, therefore, I do not think there is much therapeutic benefit to draining it. I do think she would benefit from a palliative care consultation. The extent of her disease seems fairly advanced, and her functional status seems extremely limited. History of Present Illness History of Present Illness Chief Complaint: Right-sided pleural effusion Narrative: I was asked to see Deepthi regarding my opinion of a pleural effusion, and the potential role for thoracentesis. Briefly, she is 67 years old and she is got a medical history that is most significant for alcoholic cirrhosis with hepatocellular carcinoma. As best I can tell from her [facility] records, her hepatocellular carcinoma was first diagnosed in 2019 as part of surveillance imaging. Biopsy confirmed a poorly differentiated hepatocellular carcinoma, and she underwent thermal ablation therapy that same year. She was found to have a recurrence in 2019 which was complicated by portal vein thrombosis. She was treated again with ablation therapy and subsequent chemoembolization. She has been undergoing multiple microwave ablation therapies, with the most recent one occurring around the of this month. She was brought to the emergency department by emergency medical responders around 11 AM on the . She was found by home health nurse. She might have fallen around 3 AM the previous night. She was confused with slurred speech. She had a leukocytosis of 18,000. She underwent a CAT scan of the head and torso. There was no evidence of acute traumatic brain injury. She was found to have a large right-sided pleural effusion, but this was evident on previous CAT scans as well. She has an acute right-sided seventh rib fracture, as well as possibly subacute fracture of the eighth rib on the same side. On my evaluation, she complains of some pain in the left chest. She denies shortness of breath. She is disoriented to time and person. Review of Systems Narrative: I am unable to obtain a complete review of systems because her mental status is a little bit confused. She is pretty clear about not having any shortness of breath or dyspnea with exertion, although it sounds like her functional mobility is quite limited. PFSH All Active Problems Discharge planning issues (Acute) DVT prophylaxis (Acute) Superficial thrombophlebitis of both legs (Acute) Blunt head trauma (Acute) Cervical strain (Acute) Blunt trauma of multiple sites of trunk (Acute) Right rib fracture (Acute) Pneumonia (Acute) Dehydration (Acute) Pleural effusion on right (Acute) Hep C w/o coma, chronic (Acute) Portal hypertensive gastropathy (Acute) GI (gastrointestinal hemorrhage) (Chronic) Varices of esophagus determined by endoscopy (Acute) Hepatocellular carcinoma (Acute) Surgical History section X 2 Ligation of fallopian tube Social History Smoking/Tobacco Use Status: Unknown Smoking risk assessment performed?: Yes Alcohol Intake: former Drug use: Occasionally Substance use type: marijuana Details: marijuana at bedtime Housing: apartment Do you feel safe at home: Yes Do you feel safe in your relationship?: Yes Exam Const General: cooperative, frail appearing and ill appearing Orientation: awake, oriented to person and confused HENMT Head: normal to inspection Other: She has some ecchymosis on the left mandible its not tender she has no malocclusion Neck Neck: normal visual inspection, full ROM and no lymphadenopathy Chest Other: There is a skin tear, or perhaps a pressure ulcer on the medial aspect of the right breast. Resp Other: Lung sounds are diminished on the right. She has some rhonchi. GI Other: Abdomen soft and nondistended. Results Last Vital Signs Temp 98.8 F 12/16/22 15:55 Pulse 99 H 12/16/22 16:03 Resp 18 12/16/22 15:55 BP 104/70 12/16/22 15:55 Pulse Ox 93 12/16/22 16:37 Labs 12/16/22 06:50 12/16/22 06:50 Labs: Laboratory Results - last 24 hr 12/15/22 12/15/22 12/15/22 19:13 19:35 20:45 WBC RBC Hgb Hct MCV MCH MCHC RDW Plt Count MPV Immature Gran % Neutrophils % Lymphocytes % Monocytes % Eosinophils % Basophils % Nucleated RBC % Absolute Neutrophils Absolute Lymphocytes Absolute Monocytes Absolute Eosinophils Absolute Basophils VBG Lactate 2.0 H Sodium Potassium Chloride Carbon Dioxide Anion Gap BUN Creatinine Est GFR (CKD-EPI 2020) Glucose Calcium Total Bilirubin AST ALT Alkaline Phosphatase Ammonia 22 Creatine Kinase Troponin I 137 H* Total Protein Albumin 12/16/22 12/16/22 06:50 06:50 WBC 13.23 H RBC 4.59 Hgb 12.1 Hct 36.5 MCV 80 MCH 26.4 L MCHC 33.2 RDW 19.9 H Plt Count 150 MPV 9.9 Immature Gran % 1.6 Neutrophils % 80.7 Lymphocytes % 6.3 Monocytes % 10.7 Eosinophils % 0.5 Basophils % 0.2 Nucleated RBC % 0.2 Absolute Neutrophils 10.68 H Absolute Lymphocytes 0.83 L Absolute Monocytes 1.42 H Absolute Eosinophils 0.07 Absolute Basophils 0.03 VBG Lactate Sodium 135 L Potassium 3.7 Chloride 102 Carbon Dioxide 17.3 L Anion Gap 15.7 H BUN 32 H Creatinine 0.8 Est GFR (CKD-EPI 2020) 79.71 Glucose 102 Calcium 9.0 Total Bilirubin 1.3 H AST 296 H ALT 161 H Alkaline Phosphatase 91 Ammonia Creatine Kinase 153 Troponin I Total Protein 6.9 Albumin 2.7 L
[2022-12-16] MEDS: LORazepam 0.5 MG TAB PO (20:11)
[2022-12-17] VITALS (10 sets, daily range): BP systolic 107–117; BP diastolic 67–71; PULSE 81–94; RESP 16–20; TEMP 36–36.9; O2SAT 94–96
[2022-12-17] MEDS: Levothyroxine 25 MCG TAB PO (05:16)
[2022-12-17] MEDS: oxyCODONE 5 MG TAB PO ×2 (05:16→14:51)
[2022-12-17 07:17] LABS: Absolute Basophil Count 0.04 10^3/uL (0.0-0.2); Absolute Eosinophil Count 0.26 10^3/uL (0.0-0.7); Absolute Monocyte Count 1.39 10^3/uL (0.1-0.8); Basophils % 0.3; Eosinophils % 2.2; HCT 33.7 % (36.0-46.0); HGB 11.7 g/dL (11.2-15.7); Immature Grans % 2.5; Lymphocytes % 6.7; MCH 27.3 pg (27.0-33.0); MCHC 34.7 % (32.0-36.0); MCV 79 fL (80-95); MPV 9.9 fL (8.0-11.0); Monocytes % 11.7; Neutrophils % 76.6; Nucleated RBC 0.2 % (0.0-0.3); Platelet Count 176 10^3/uL (130-400); RBC 4.29 10^6/uL (3.93-5.22); RDW 19.6 % (11.7-14.6); RDW-SD 53.8 fL; WBC 11.88 10^3/uL (4.4-10.8)
[2022-12-17 07:36] LABS: Anion Gap 11.8 mmol/L (3-11); BUN 32 mg/dL (7-18); C-Reactive Protein 13.36 mg/dL (0.0-0.3); CO2 20.2 mmol/L (21.0-32.0); CREATININE 0.8 mg/dL (0.55-1.02); Calcium 8.9 mg/dL (8.5-10.1); Chloride 100 mmol/L (98-107); Estimated GFR 79.71 (mL/min/1.73m2); Glucose 117 mg/dL (74-106); Magnesium 2.1 mg/dL (1.8-2.4); Potassium 3.7 mmol/L (3.5-5.1); Sodium 132 mmol/L (136-145)
[2022-12-17 08:37] LABS: Creatine Kinase 53 U/L (26-192)
[2022-12-17] MEDS: Apixaban 5 MG TAB PO ×2 (08:50→21:32)
[2022-12-17] MEDS: Lactulose 20 GM/30 ML CUP PO (08:50)
[2022-12-17] MEDS: Sertraline 100 MG TAB PO (08:50)
[2022-12-17] MEDS: Rifaximin 550 MG TAB PO ×2 (08:50→21:32)
[2022-12-17] MEDS: Propranolol 10 MG TAB PO (08:50)
[2022-12-17] MEDS: HYDROmorphone 2 MG/ML SYR 0.5 MG IVP ×2 (08:50→16:29)
[2022-12-17] MEDS: Pantoprazole 40 MG TABCR PO (08:50)
[2022-12-17] MEDS: Spironolactone 50 MG TAB PO (08:50)
[2022-12-17] MEDS: metroNIDAZOLE 500 MG/100 ML BAG 100 MG IVPB ×2 (08:51→16:16)
[2022-12-17] MEDS: Lidocaine 5% Patch 1 PATCH TP (08:51)
--- NOTE | 2022-12-17 10:24 | PDOC.CMPRO ---
Date of service: 12/17/22 Time of Service: 10:24 Care Management Progress Note Progress Note Text Progress Note Text: S/O:Cheli was sitting up in bed when CM met with her. Sharon from Palliative Care and Freya, Cheli's daughter, were present. Cheli's other daughter Eleni was on speaker phone. Cheli has metastatic liver cancer and is not sure if she wants to go home on hospice or just continue with home health and additional supports. Freya is planning to have Cheli come and live with her. Eleni lives out of state but has been coming to [place] to help care for her Mom. Cheli will need a hospital bed and other equipment. A relative is giving them a wheelchair and Cheli has a walker. A: Cheli is a 67 year old woman admitted on 12/15/22 with pneumonia, rhabdomyolysis and a pleural effusion P:Anticipate Cheli will be discharged to her daughter Freya's home with a resumption of home health services vs hospice. She will follow up with her community providers and plan of care. Transportation will be determined by Cheli's condition at the time of discharge. CM to follow and support discharge needs.
--- NOTE | 2022-12-17 10:29 | PT.INIE ---
PT Notes Visit Reasons: Pneumonia,rhabdomyolysis,rib fracture,pleural effu Inpatient Physical Therapy Evaluation Date: 12/17/22 Referring Doctor: Dr. Yates PT Orders: PT CONSULT: limited abilty to ambulate Precautions: standard Patient Profile/Admitting Diagnosis: Patient admitted after fall at home resulting in right rib fx. Diagnosed in ER with pneumonia and right pleural effusion in the presence of metastatic hepatocellular carcinoma. PT orders for evaluation and treatment of mobility impairments. Social History/Home Situation: Cheli lives alone in an apartment in [facility]. . She had been independent with ADLs and participating in outpatient PT, but recently has been weaker. She recently transitioned to home health services. Cehli uses a cane and a walker for ambulatory assistance. States that she plans to stay with her daughter in [place] for a while when she leaves the hospital. Equipment Owned/DME: cane, FWW Subjective: Cheli provides limited history. Reports continued pain in ribs and feeling very tired. Objective: General Observation: Getting cleaned up with nursing at initiation of session. IV in LUE. Does not participate in bed mobility during care; requires total assist for rolling and scooting in bed. Mental Status: intermittently alert. Eyes closed through majority of session, and patient falls asleep throughout session, often mid-exercise. Able to rouse easily. Provides appropriate history with yes/no responses and short responses. ROM: Right Upper Extremity: Shoulder flexion to 90*. Elbow motion WFL. Left Upper Extremity: Shoulder flexion to 90*. Elbow motion WFL. Right Lower Extremity: Hip flexion 70*. Knee motion 0-80*. Ankle DF to neutral only. Left Lower Extremity: Hip flexion 70*. Knee motion 0-80*. Ankle DF to neutral only. Strength: Right Upper Extremity: Shoulder flexion 3-/5. Body Mechanic Apprentice is weak but equal. Left Upper Extremity: Shoulder flexion 3-/5. Body Mechanic Apprentice is weak but equal. Right Lower Extremity: Hip flexion 3-/5. Quads 3-/5 (functionally unable to perform SLR, but gets good active quad set). PF/DF 3/5. Left Lower Extremity: Hip flexion 3-/5. Quads 3-/5 (functionally unable to perform SLR, but gets good active quad set). PF/DF 3/5. Bed Mobility/Transfers: scooting in bed: dependent rolling L/R: max A x 3 supine-sit: unable Gait: unable Balance: Static Sitting: unable Dynamic Sitting: unable Static Standing: unable Dynamic Standing: unable Special Tests: Mobility Limitations Standardized Measure [facility]-PAC 6 clicks Basic Mobility Inpatient Short Form: Raw Score: 7 Standardized Score: 92% impairment Informed Consent/Education: Patient instructed in purpose of PT consult and plan of care. Assessment: Patient is a 67 year old female referred to physical therapy services with the diagnosis of limited ability to ambulate due to acute medical issues, including pleural effusion and rib fx resulting from recent fall. Patient presents with severe mobility impairments due to pain and weakness, and is only able to participate minimally in evaluation today. Anticipate she will require further rehabilitation in SNF setting prior to returning to community. She currently demonstrates the following impairment level findings: 1. Decreased UE strength 2. Decreased LE strength 3. decreased activity tolerance, with limited ability to participate in evaluation due to fatigue Impairments are contributing to the following functional limitations: 1. unable to ambulate 2. unable to perform bed mobility independently 3. unable to transfer without total assist Patient is assessed as Moderate [id number] complexity based on the following: History: as above Examination: functional limitations as above Presentation: evolving Decision Making: moderate complexity Goals: Goals X1 week 1. Supine-Sit : min A 2. Sit-Supine : min A 3. Sit-Stand : min A 4. Stand-Sit : min A 5. Bed-Chair : min A with FWW 6. Chair-Bed : min A with FWW 7. Gait : min A with FWW x 25' Plan of Care/Treatment Plan: 1-2x/day, 7 days/week x 1 week. Plan of care has been reviewed with the LAYOUT DESIGNER providing the service under Physical Therapy direction. Initiate Physical Therapy intervention for strengthening, bed mobility, transfers, gait, stairs, balance training, use of assistive device. DISCHARGE RECOMMENDATIONS: SNF for continued rehabilitation TREATMENT CODE/TIME: [id number] ([id number]) Shantel Craft, PT, DPT [facility] All Active Problems Discharge planning issues (Acute) DVT prophylaxis (Acute) Superficial thrombophlebitis of both legs (Acute) Blunt head trauma (Acute) Cervical strain (Acute) Blunt trauma of multiple sites of trunk (Acute) Right rib fracture (Acute) Pneumonia (Acute) Dehydration (Acute) Pleural effusion on right (Acute) Hep C w/o coma, chronic (Acute) Portal hypertensive gastropathy (Acute) GI (gastrointestinal hemorrhage) (Chronic) Varices of esophagus determined by endoscopy (Acute) Hepatocellular carcinoma (Acute) Surgical History section X 2 Ligation of fallopian tube
[2022-12-17] MEDS: Acetaminophen 500 MG TAB PO ×2 (11:01→21:32)
--- NOTE | 2022-12-17 12:48 | PCNE_ITS ---
Date of service: 12/17/22 Time of Service: 12:48 History of Present Illness Narrative: Cheli is a very pleasant 67 year old female with hx of HCC, Dx 04/2018, with local lymph node involvement noted in 2019, and now with supraclavicular adenopathy noted, the largest mass measures 2.3 x 3.3 cm. She has had radiation and ablation but no systemic therapy for the cancer. She also has a history of chronic hepatitis C, alcoholic cirrhosis, with esophageal varices and hepatic e ncephalopathy, with current alcohol use, portal vein thrombus, on apixaban, hypothyroidism, depression and anxiety. She is currently admitted to med/surg after falling at home and being down for up to 3 days. She reports that she was getting weaker at home prior to the fall. She had just started working with PT. Her daughter reports that she was drinking ETOH the night she fell and that she was falling approximately 1x/week. She had a fall earlier this month that resulted in a rib Fx. Nursing reports that she is swallowing better today, however, she coughed while drinking water during the visit. She is only eating up to 25% of her meals. She requires assistance with eating due to weakness. She cannot hold a cup independently to drink. She was evaluated by PT, SNF was recommended. She refuses SNF. She plans to go to her daughter, Freya's home in [place], [place]. Freya agrees. She knows she cannot go back to her apartment at this time. Nursing reports significant pain with care/repositioning. She has not been out of bed yet. Discussed home with PT vis home with Hospice with her daughter, Freya present and Eleni on the phone. Consider transition to fentanyl patch. Social: she has 2 daughters, Freya lives in [place] and will likely take her home. Her daughter, Eleni, lives in [place]. She is close to her brother, Damon. Damon lives in [place] and will be visiting within the week. Damon's unexpectedly last Wednesday. She also has a brother, Wisam in [place]. Assessment and Plan Assessment and plan (1) Hepatocellular carcinoma: Status: Acute (2) Hep C w/o coma, chronic: Status: Acute (3) Cirrhosis of liver: Status: Acute (4) Varices of esophagus determined by endoscopy: Status: Acute (5) ETOH abuse: Status: Chronic (6) Frequent falls: Status: Acute (7) Blunt head trauma: Status: Acute (8) Cervical strain: Status: Acute (9) Blunt trauma of multiple sites of trunk: Status: Acute (10) Right rib fracture: Status: Acute (11) Pneumonia: Status: Acute (12) Weakness: Status: Acute (13) Ambulatory dysfunction: Status: Deleted (14) Palliative care patient: Status: Deleted Assessment and plan: Cheli is a very pleasant 67 year old female with hx of HCC, Dx 04/2018, with local lymph node involvement noted in 2019, and now with supraclavicular adenopathy noted, the largest mass measures 2.3 x 3.3 cm. She has had radiation and ablation but no systemic therapy for the cancer. She also has a history of chronic hepatitis C, alcoholic cirrhosis, with esophageal varices and hepatic encephalopathy, with current alcohol use, portal vein thrombus, on apixaban, hypothyroidism, depression and anxiety. She is currently admitted to med/surg after falling at home and being down for up to 3 days. She has been progressively getting weaker. She falls at least once per week. She is experiencing significant pain. Consider fentanyl patches. She was living alone in an apartment. PT recommends SNF. She declines SNF. She plans to go to her daughter, Freya's home when she is discharged. Discussed home with PT vs home with Hospice service- will continue to discuss. She appears to be declining overall and would likely benefit from the support that hospice offers. She is eating up to 25% of her meals. She has to be fed due to weakness. She has not been out of bed. Palliative to f/u with her and her daughter tomorrow. Review of Systems Narrative: See HPI PFSH All Active Problems (Updated 12/21/22 @ 00:03 by GISELLA INMAN) Weakness (Acute) Frequent falls (Acute) ETOH abuse (Chronic) Cirrhosis of liver (Acute) Superficial thrombophlebitis of both legs (Acute) Blunt head trauma (Acute) Cervical strain (Acute) Blunt trauma of multiple sites of trunk (Acute) Right rib fracture (Acute) Pneumonia (Acute) Dehydration (Acute) Pleural effusion on right (Chronic) Hep C w/o coma, chronic (Acute) Portal hypertensive gastropathy (Acute) GI (gastrointestinal hemorrhage) (Chronic) Varices of esophagus determined by endoscopy (Acute) Hepatocellular carcinoma (Acute) Metastatic Surgical History section X 2 Ligation of fallopian tube Social History Smoking/Tobacco Use Status: Unknown Smoking risk assessment performed?: Yes Alcohol Intake: former Drug use: Occasionally Substance use type: marijuana Details: marijuana at bedtime Housing: apartment Do you feel safe at home: Yes Do you feel safe in your relationship?: Yes Exam Narrative Exam Narrative: General: very pleasant, middle aged female, laying in the bed in her room with head of bed elevated. She was initially sleeping, she awakened easily to verbal stimuli but appeared to be falling asleep at times during the visit. She was able to engage in conversation and provide history. HEENT: Normocephalic, atraumatic, EOMI, mucous membranes very dry. Neck: Supple, no JVD. Respiratory: Respirations appear unlabored. Coughing while drinking noted. GI: Abdomen is firm and distended, tender on palpation. Extremities: 1-2+ pitting edema to BLEs, can barely lift knees in bed. Scattered areas of ecchymosis over upper extremities and trunk. Results Last Vital Signs Temp 36 C L 12/17/22 11:21 Pulse 86 12/17/22 11:21 Resp 20 12/17/22 11:21 BP 117/71 12/17/22 11:21 Pulse Ox 96 12/17/22 11:21 Labs 12/18/22 05:32 12/18/22 05:32 Labs: Laboratory Results - last 24 hr 12/17/22 12/17/22 12/17/22 05:52 05:52 05:52 WBC 11.88 H RBC 4.29 Hgb 11.7 Hct 33.7 L MCV 79 L MCH 27.3 MCHC 34.7 RDW 19.6 H Plt Count 176 MPV 9.9 Immature Gran % 2.5 Neutrophils % 76.6 Lymphocytes % 6.7 Monocytes % 11.7 Eosinophils % 2.2 Basophils % 0.3 Nucleated RBC % 0.2 Absolute Neutrophils 9.10 H Absolute Lymphocytes 0.80 L Absolute Monocytes 1.39 H Absolute Eosinophils 0.26 Absolute Basophils 0.04 Sodium 132 L Potassium 3.7 Chloride 100 Carbon Dioxide 20.2 L Anion Gap 11.8 H BUN 32 H Creatinine 0.8 Est GFR (CKD-EPI 2020) 79.71 Glucose 117 H Calcium 8.9 Magnesium 2.1 Creatine Kinase 53 C-Reactive Protein 13.36 H
[2022-12-17] MEDS: cefTRIAXone 1 GM/50 ML BAG IVPB (17:43)
--- NOTE | 2022-12-17 20:33 | PGE_ITS ---
Date of Service Date of service: 12/17/22 Time of Service: 20:33 Assessment and Plan Assessment and plan (1) Pneumonia: Status: Acute Assessment and plan: Has evidence of PNA by CT and is aspirating. Continue ceftriaxone/metronidazole. modified diet Encourage IS. Thoracenthesis not indicated, per general surgery. (2) Blunt head trauma: Status: Acute Assessment and plan: Due to a mechanical fall. CT head negative. I have scheduled tylenol 500 mg PO Q6hrs. Continue prn IV dilaudid; home oxycodone. (3) Blunt trauma of multiple sites of trunk: Status: Acute Assessment and plan: With rib fx. Lidocaine patches. schedule tylenol. Increase frequency of dilaudid. Encourage IS. (4) Right rib fracture: Status: Acute Assessment and plan: As above lidocaine patches. Increase frequency of dilaudid. (5) Pleural effusion on right: Status: Acute Assessment and plan: Not planned for a thoracenthesis. Encourage IS. I am not sure of the etiology of the effusion: it could be transudative or exhudative or hemothorax in her case. (6) GI (gastrointestinal hemorrhage): Status: Chronic Assessment and plan: Portal hypertension. continue propranolol and protonix. She is on eliquis - we do not know her esophageal varices status. I have still not seen GI records. (7) Hepatocellular carcinoma: Status: Acute Assessment and plan: Metastatic. Considering home hospice. Continue rifaximin and lactulose. Not encephalopathic clinically. (8) DVT prophylaxis: Status: Acute Assessment and plan: Therapeutic eliquis (9) Discharge planning issues: Status: Acute Assessment and plan: DNR/DNI palliative care, PT, OT, speech consulted. Considering home hospice vs home with home health PT. Subjective Subjective Interval history since last seen: The patient had been quite uncomfortable today. She is finally resting when I came to see her and I chose not to wake her up. She has met with palliative care today and discussed possibly going home on hospice. Exam Narrative Exam Narrative: General: frail female, resting comfortably in bed, on NC at 0.5 L HEENT: eyes closed; large ecchymosis L cheek/chin Heart: not auscultated Lungs: nonlabored breathing Abdomen: nondistended Extremities: Covered in blankets Objective Last Vital Signs Temp 36.9 C 12/17/22 15:55 Pulse 81 12/17/22 15:55 Resp 16 12/17/22 15:55 BP 107/71 12/17/22 15:55 Pulse Ox 96 12/17/22 15:55 Laboratory Results - last 24 hr 12/17/22 12/17/22 12/17/22 05:52 05:52 05:52 WBC 11.88 H RBC 4.29 Hgb 11.7 Hct 33.7 L MCV 79 L MCH 27.3 MCHC 34.7 RDW 19.6 H Plt Count 176 MPV 9.9 Immature Gran % 2.5 Neutrophils % 76.6 Lymphocytes % 6.7 Monocytes % 11.7 Eosinophils % 2.2 Basophils % 0.3 Nucleated RBC % 0.2 Absolute Neutrophils 9.10 H Absolute Lymphocytes 0.80 L Absolute Monocytes 1.39 H Absolute Eosinophils 0.26 Absolute Basophils 0.04 Sodium 132 L Potassium 3.7 Chloride 100 Carbon Dioxide 20.2 L Anion Gap 11.8 H BUN 32 H Creatinine 0.8 Est GFR (CKD-EPI 2020) 79.71 Glucose 117 H Calcium 8.9 Magnesium 2.1 Creatine Kinase 53 C-Reactive Protein 13.36 H PAWSS Have you Been Recently Intoxicated or Drunk Within the Last 30 days?: Yes Have you Ever Experienced Previous Episodes of Alcohol Withdrawal?: No Have you ever Experienced Withdrawal Seizures?: No Have you ever Experienced Delirium Tremens(DT)s?: No Have you ever undergone Alcohol Rehabilitation Treatment (i.e, inpt ot outpatient treatment programs)?: No Have you ever Experienced Blackouts?: No Have you ever Combined Alcohol with other Downers within the last 90 days?: Yes Have you ever Combined Alcohol with any other Substance of Abuse during the last 90 days?: Yes Positive Blood Alcohol level on Presentation? [PCS.BAL]: Unable to Obtain Evidence of Increased Autonomic Activity (i.e. HR>120, tremor, sweating, agitation, nausea)?: No Result: 3 Time Spent with Patient Time Spent with Patient: <25 minutes Time was spent: preparing to see the patient(eg.review tests), obtaining and/or reviewing separately otained hiistory, ordering medications,tests, procedures, referring, communicating with other health career guidance counselor, indepentently interpreting results, counseling the patient and care coordination
[2022-12-17] MEDS: Lidocaine Patch Removal 1 EACH TP (21:33)
[2022-12-17 22:44] LABS: Legionella Ag Detection Urine Negative (Negative)
[2022-12-18] VITALS (8 sets, daily range): BP systolic 101–114; BP diastolic 68–80; PULSE 66–83; RESP 14–16; TEMP 36.3–36.8; O2SAT 93–97
[2022-12-18] MEDS: metroNIDAZOLE 500 MG/100 ML BAG 100 MG IVPB ×4 (00:39→23:23)
[2022-12-18] MEDS: Levothyroxine 25 MCG TAB PO (05:47)
[2022-12-18 06:52] LABS: Abs Immature Grans 0.19 10^3/uL (0.0-0.06); Absolute Basophil Count 0.04 10^3/uL (0.0-0.2); Absolute Eosinophil Count 0.23 10^3/uL (0.0-0.7); Absolute Lymphocyte Count 0.61 10^3/uL (1.2-3.4); Absolute Monocyte Count 1.03 10^3/uL (0.1-0.8); Absolute Neutrophil Count 7.46 10^3/uL (1.2-6.7); Basophils % 0.4; Eosinophils % 2.4; HCT 33.7 % (36.0-46.0); HGB 11.3 g/dL (11.2-15.7); Lymphocytes % 6.4; MCH 26.5 pg (27.0-33.0); MCHC 33.5 % (32.0-36.0); MCV 79 fL (80-95); MPV 9.5 fL (8.0-11.0); Monocytes % 10.8; Platelet Count 142 10^3/uL (130-400); RBC 4.27 10^6/uL (3.93-5.22); RDW 19.6 % (11.7-14.6); RDW-SD 53.9 fL; WBC 9.56 10^3/uL (4.4-10.8)
[2022-12-18 07:04] LABS: Anion Gap 8.1 mmol/L (3-11); BUN 22 mg/dL (7-18); CO2 22.9 mmol/L (21.0-32.0); CREATININE 0.7 mg/dL (0.55-1.02); Calcium 8.5 mg/dL (8.5-10.1); Chloride 101 mmol/L (98-107); Estimated GFR 93.56 (mL/min/1.73m2); Glucose 102 mg/dL (74-106); Magnesium 1.9 mg/dL (1.8-2.4); Potassium 3.9 mmol/L (3.5-5.1); Sodium 132 mmol/L (136-145)
[2022-12-18 07:09] LABS: Creatine Kinase 39 U/L (26-192)
[2022-12-18] MEDS: HYDROmorphone 2 MG/ML SYR 0.5 MG IVP ×3 (07:32→11:44)
--- NOTE | 2022-12-18 08:28 | OT.INIE ---
Occupational Therapy Notes Inpatient Occupational Therapy Evaluation Date: 12/18/22 Referring Doctor: Alexus Yates MD OT Orders: Non Urgent Precautions: Fall, standard, DNR/DNI PATIENT PROFILE/ADMITTING DIAGNOSIS: Pt is a 67 year old female who was admitted to Med Surg with a dx of superficial thrombophlebitis of (B) LE, blunt head trauma, cervical strain, (R) rib fx, pneumonia, dehydration, pleural effusion on (R), Hep C w/o coma chronic, portal hypertensive gastropathy, GI, varices of esophagus determine by endoscopy, hepatocellular carcinoma. Past Medical History: All Active Problems? Superficial thrombophlebitis of both legs (Acute) Blunt head trauma (Acute) Cervical strain (Acute) Blunt trauma of multiple sites of trunk (Acute) Right rib fracture (Acute) Pneumonia (Acute) Dehydration (Acute) Pleural effusion on right (Acute) Hep C w/o coma, chronic (Acute) Portal hypertensive gastropathy (Acute) GI (gastrointestinal hemorrhage) (Chronic) Varices of esophagus determined by endoscopy (Acute) Hepatocellular carcinoma (Acute) Surgical History? section X? 2Ligation of fallopian tube Social History/Home Situation: Pt states that she was living (I) and performing PT at [facility] with Satya for balance. She transitioned to services and notes that she was doing well and then kept falling. She states that she was walking with her FWW and pushed it too far in front resulting in a fall. She notes that she laid on the floor for hours and couldn't get up. She reports that when she is discharged the plan is for her to move in with her daughter and grandchildren. She states that she feels weak and requires (A) with her ADLs/IADLs at this time. She reports that she feels that her strength has declined. SUBJECTIVE: Pt was sitting in bed and reports that she is weak and tired. She notes that she has not been able to perform any functional mobility and is hoping to return home when discharged. OBJECTIVE: General Observation: Pleasant, (L) chin small cut with healing phase, bruising along neck from fall at home, bruising on (R) UE around elbow Mental Status: A&Ox4 Pain: c/o pain in back although she notes that she has been in the bed and feels that this is contributory. Vital Signs: O2 monitored by Respiratory Therapist during OT consult please refer to their note for specifics. ROM: RUE AROM WFL L UE AROM WFL STRENGTH: RUE 2+/5 LUE 3-/5 FUNCTIONAL MOBILITY/ADLS: Transfers max (A) x2-3 people BATHING sitting in bed with min vc Bathing UE able to wipe face but requires min (A) for this Bathing LE NT DRESSING NT pt is weak and requires max (A) at this time. GROOMING Mod (A) TOILETING NT EATING max (A), pt has ROM of her (B) UE but she is so weak that she is unable to lift her cup to her mouth (I). She states that she typically just won't eat until her daughter arrives to help her. OT will discuss with nursing for further (A). OT educated pt in energy conservation techniques and the importance of monitoring energy levels, respecting pain, and modifications in her home space to adjust to the decrease in energy levels. BALANCE: Static sitting Normal Dynamic Sitting Good SPECIAL TESTS: Daily Activity Limitations Standardized Measure [facility] AM -PAC ?6 clicks? Daily Activity Inpatient Short Form: Raw score: 9 Standardized score: 25.33 CMS score: 79.59% INFORMED CONSENT/EDUCATION: Pt instructed in purpose of OT Consult and plan of care. ASSESSMENT: Patient is a 67-year-old female referred to occupational therapy services with diagnosis of superficial thrombophlebitis of (B) LE, blunt head trauma, cervical strain, (R) rib fx, pneumonia, dehydration, pleural effusion on (R), Hep C w/o coma chronic, portal hypertensive gastropathy, GI, varices of esophagus determine by endoscopy, hepatocellular carcinoma. Patient presents with clinical signs and symptoms consistent with dx, as demonstrated by the following impairment level findings: Impairments in ADL/IADL and leisure activities, increased fatigue, decreased functional mobility, decreased strength, impairments in gross and fine motor control of (B) UE. Impairments are contributing to the following functional limitations: Pt has difficulty performing the following functional activities including dressing in the seated position and unable to tolerate standing- UE requires mod (A) and LE max, Eating- requires max (A), pt does not have strength to be able to lift food to mouth, Dressing- mod-max (A) pt has difficulty with decreased strength and fatigue. AMPAC score 9 Patient is assessed as a high 25567 complexity based on the following: History: see above Examination:see functional limitations as noted above Presentation: evolving Decision Making: AMPAC Score 9 GOALS Goals x1 week 1. Grooming- seated in chair with min (A) pt will be able to perform her oral hygiene (I) 2. Dressing- seated in chair min (A) UE, mod (A) LE 3. Bathing- seated in chair with max (A) set up/clean up, (I) UE and mod (A) LE 4. Toileting- on toilet with mod (A) 5. Eating- mod (A) PLAN OF CARE/TREATMENT PLAN: 1x/day, 5 days/ week x 1week Initiate Occupational Therapy Services for bathing, dressing, grooming, toileting, eating, transfer training. DISCHARGE RECOMMENDATIONS SNF based on pts decline in functional mobility, increased fatigue, decreased strength and frequent falling posing an increased safety risk in a home setting. Pt does report that she does not wish to go to SNF at this time. Based on this OT recommends the following- services for (A) of ADLs and for assessment of adaptive equipment needs in the home OT recommends a bedside commode to increase pts (I) with toileting routines at night and decrease fall risk OT recommends a shower seat to improve pts safety with her bathing routines and decrease fall risk in the shower TREATMENT TIME/MINUTES/CODES 34325, 30008, 35 minutes Christi Ann OTR/[facility] [place], [place]
--- NOTE | 2022-12-18 08:55 | RESPIRATORY ---
PT WEANED THIS MORNING. ROOM AIR SPO2 WAS 87-88%. SHE WAS PLACED BACK ON 1 LPM NC AND SPO2 INCREASED TO 93-94%. PT REMAINS ON 1 LPM NC.
[2022-12-18] MEDS: Lactulose 20 GM/30 ML CUP PO (09:37)
[2022-12-18] MEDS: Rifaximin 550 MG TAB PO ×2 (09:37→20:56)
[2022-12-18] MEDS: Acetaminophen 500 MG TAB PO ×2 (09:38→20:56)
[2022-12-18] MEDS: Spironolactone 50 MG TAB PO (09:38)
[2022-12-18] MEDS: Propranolol 10 MG TAB PO (09:38)
[2022-12-18] MEDS: Apixaban 5 MG TAB PO ×2 (09:38→20:56)
[2022-12-18] MEDS: Sertraline 100 MG TAB PO (09:38)
[2022-12-18] MEDS: Pantoprazole 40 MG TABCR PO (09:38)
[2022-12-18] MEDS: Lidocaine 5% Patch 1 PATCH TP (09:44)
--- NOTE | 2022-12-18 11:44 | PTTR_ITS ---
PT Notes Visit Reasons: Pneumonia,rhabdomyolysis,rib fracture,pleural effu Inpatient Physical Therapy Treatment Note [facility] Date: 12/18/22 PRECAUTIONS:fall, standard SUBJECTIVE: Deepthi is sitting up in the chair at initiation of session. States that she was assisted to the chair with the Steady lift by nursing. She is requesting pain meds; nursing alerted. OBJECTIVE: ? Therapeutic Activities ([id number]): Direct one-on-one instruction in dynamic activities to improve functional performance. ? BED MOBILITY/TRANSFERS? Sit-stand: mod A x 2, max cues for technique and hand placement ? Stand-sit: mod A x 2, max cues for technique and hand placement ? Bed-Chair: steady lift with nursing; not observed by PT ? Provided skilled cues and instruction on performance and technique throughout. Instructed in the following exercises for transfer training: sit-stand: 5x, mod A x 2 for each static standin seconds x 4 reps, with obvious fatigue. Demonstrates buckling of knees throughout, requiring max UE support to FWW and mod A x 2 for support at all times standing june: attempted x 2 on each side, with mod A x 2 at the trunk and UE support to FWW. Limited foot clearance, and need for continuous cues for UE support to FWW ? Therapeutic Exercises ([id number]): Direct one-on-one instruction in therapeutic exercises to develop strength, endurance, range of motion and flexibility. ? Exercises: seated shoulder flexion, 8x, max cues throughout seated june 10x LAQ 10x chair push ups, 5x, max cues, limited excursion Gait: UNABLE? ASSESSMENT:? Improving strength and participation today, but remains non- ambulatory. Continue progressing transfer training and weight bearing activity to facilitate ambulation. PLAN: Discharging home with HH PT vs hospice level care once medically ready. TREATMENT CODE/TIME: [id number]
[2022-12-18] MEDS: oxyCODONE 5 MG TAB PO (12:38)
--- NOTE | 2022-12-18 13:15 | W.SPSTP ---
Date of service: 12/18/22 Time of Service: 12:30 Subjective Pt was contacted during lunch. Upright at bedside in arm chair. Upon arrival, she was slumped over the side of the chair requesting repositioning and wanting to get back into bed, complaining of 10/10 pain. Nursing notified and provided medications. Nursing reports she has not been coughing at baseline or with breakfast this date, noting she was looking better this morning overall. Objective/Assessment/Plan Objective Treatment Techniques & Outcomes: Goals: Patient will tolerate safest/least restrictive diet of without s/sx aspiration. IN PROGRESS: Food items tested: ?? ? IDDSI 0: Thin liquids IDDSI 2: Mildly thick liquids ? IDDSI 4: Puree ? Oral phase: ? Difficulty with bolus manipulation ? Difficulty with a-p transport ? Difficulty chewing ? Residue Pharyngeal phase: ? Delayed swallow initiation ? Reduced hyolaryngeal elevation/excursion ? Cough after swallow Patient/caregiver will be independent with aspiration precautions, diet modifications, and safe swallowing strategies. IN PROGRESS: Patient independent with small sip size, slow pace. Provided review of rationale/instructions for frequency of oral care with nursing. Assessment While nursing reports minimal difficulty since initial evaluation with meal trays, patient shows little improvement regarding s/sx aspiration with liquids on my observation. Wet, weak cough not present at baseline/outside of meals. We did also trial nectar thick/mildly thick and she also coughed with this. Suspect she may be aspirating, perhaps exacerbated at this time due to fatigue (nursing reports she was looking much better this morning). Would like to complete MBSS next week if still admitted, or as outpatient, pending goals of care. In the meantime, strict aspiration precautions should be followed as outlined below, along with very throughout and frequent oral care. Plan Plan: MAINTENANCE MECHANIC TECHNICIAN to continue to follow. Patient would benefit from home health MAINTENANCE MECHANIC TECHNICIAN or SNF pending PT recommendations and pending goals of care. Recommendations Recommendations: Diet Texture Modification(s): IDDSI Level(s) SOLIDS 4-Pureed Solids LIQUIDS 0-Thin Liquids with risk management as outlined Medication Intake: Whole vs crushed as able with Purees;? Alter medications only as advised by MD or Pharmacist RISK MANAGEMENT: HOB upright as tolerated; upright for all PO intake. Encourage physical mobility as tolerated. Oral hygiene with suction kits q4h/every 4 hours or before/after PO intake, whichever occurs first using friction with toothbrush on all oral structures as tolerated, suction PRN ? Level of Assistance/Supervision: 1:1 Assistive feeding and positioning only by trained staff/family PO intake only when awake/alert, upright, and after oral care completed Strategies/Adaptations/Assistive Equipment: Reduce auditory and/or visual distractions when eating Provide verbal and/or visual cues to use recommended strategies Small sips and bites when eating Slow rate of intake Swallow between bites Alternate intake of liquids and solids Small+frequent meals throughout day Posture/Positioning Needs: Maintain upright position at least 30 minutes after meals, Avoid meals/snacks 2-3 hours prior to reclining/sleeping, Sleep with head of bed elevated to reduce likelihood of nocturnal reflux Total Time Spent: 25 min Coding Diagnoses CPT Codes ORAL FUNCTION THERAPY - [id number] ([id number])
--- NOTE | 2022-12-18 14:10 | CMPROGNOTE_ITS ---
Date of service: 12/18/22 Time of Service: 14:11 Care Management Progress Note Progress Note Text Progress Note Text: S/O:Cheli was sitting up in bed when CANDELARIA met with her along with Sharon from Palliative, her daughter Freya and her brother Damon (on phone). Cheli has not had good pain control in the last day or two. Sharon plans to make some medication adjustments to achieve better control. Options for discharge were discussed and it was decided that Cheli would do best if she were discharged home on hospice. She needs a hospital bed and table, oxygen and a commode. CANDELARIA contacted Kimmie Hill, interpretive program coordinator, who will arrange for a Wednesday ad mission to hospice if the equipment van be delivered by then. A: Cheli is a 67 year old woman admitted on 12/15/22 with pneumonia, rhabdomyolysis and a pleural effusion P:Cheli will be discharged to her daughter Freya's home on 12/20/22 and will be admitted to hospice same day. The equipment she requires has been ordered from [facility] by hospice and should arrive by then. Cheli will be followed by the hospice team and they will be available to support the family as well. Freya will be her primary caregiver. Transportation will be via EMS coordinated by CANDELARIA. CM will continue to support Cheli and her discharge needs.
--- NOTE | 2022-12-18 14:58 | PT.INTREAT ---
PT Notes Visit Reasons: Pneumonia,rhabdomyolysis,rib fracture,pleural effu Inpatient Physical Therapy Treatment Note [facility] Date: 12/18/22 SUBJECTIVE: Deepthi states that she is wanting to get back into bed. OBJECTIVE: []? PAIN: c/o lateral thigh and back pain. ? Therapeutic Activities ([id number]): Direct one-on-one instruction in dynamic activities to improve functional performance. ? BED MOBILITY/TRANSFERS? Sit-supine: mod A? Sit-stand: mod Ax2? Stand-sit:mod A ? Bed-Chair: STEADY? Chair-bed: STEADY Provided skilled cues and instruction on performance and technique throughout. ASSESSMENT:?increased c/o pain with any mvmt. [place] better once lying flat. PLAN: will continue to progress strength improving functional mobility. TREATMENT CODE/TIME: 1-115. 15 min.
[2022-12-18] MEDS: Normal Saline Flush 10 ML SYR IVP (16:05)
[2022-12-18] MEDS: cefTRIAXone 1 GM/50 ML BAG IVPB (17:33)
[2022-12-18] MEDS: fentaNYL 12 MCG PATCH TD (18:08)
[2022-12-18] MEDS: Glycopyrrolate 1 MG TAB PO (20:55)
[2022-12-18] MEDS: Lidocaine Patch Removal 1 EACH TP (20:57)
--- NOTE | 2022-12-18 21:21 | W.PM.PROGNOT ---
Date of Service Date of service: 12/18/22 Time of Service: 10:00 Assessment and Plan Assessment and plan (1) Pneumonia: Status: Acute Assessment and plan: Has evidence of PNA by CT and is aspirating. Continue ceftriaxone/metronidazole. modified diet Encourage IS. Thoracenthesis not indicated, per general surgery. (2) Blunt head trauma: Status: Acute Assessment and plan: Due to a mechanical fall. CT head negative. continue scheduled tylenol. Started on fentanyl patch with prn PO/IV dilaudid. (3) Blunt trauma of multiple sites of trunk: Status: Acute Assessment and plan: With rib fx. Lidocaine patches. schedule tylenol. fentanyl patches + PO/IV dilaudid. Encourage IS. (4) Right rib fracture: Status: Acute Assessment and plan: As above (5) Pleural effusion on right: Status: Chronic Assessment and plan: Not planned for a thoracenthesis. Encourage IS. I am not sure of the etiology of the effusion: it could be transudative or exhudative or hemothorax in her case. (6) GI (gastrointestinal hemorrhage): Status: Chronic Assessment and plan: Portal hypertension. continue propranolol and protonix. She is on eliquis - we do not know her esophageal varices status. I have still not seen GI records. (7) Hepatocellular carcinoma: Status: Acute Assessment and plan: Metastatic. Will be discharged home on hospice on Wednesday12/20/22. Continue rifaximin and lactulose. Not encephalopathic clinically. (8) DVT prophylaxis: Status: Acute Assessment and plan: Therapeutic eliquis (9) Discharge planning issues: Status: Acute Assessment and plan: DNR/DNI palliative care, PT, OT, speech consulted. Plan for discharge home on hospice on 12/20/22. Subjective Subjective Interval history since last seen: Ms Teresa reports a lot of pain in her R chest. Denies dizziness, SOB, nausea. At the time of my conversation with her, she was not yet sure about going home on hospice, but in a follow up discussion with palliative care and care management, her and her daughter did make the decision to go home on hospice, and this is expected to happen on Wednesday12/20/22. Exam Narrative Exam Narrative: General: frail female, uncomfortable in bed, about to be taken to the commode when I saw her HEENT: EOMI, MMM, ecchymosis L cheek Heart: RRR, + ZOILA Lungs: nonlabored breathing Abdomen: distended/full - ascites Extremities: +1 edema BLEs Objective Last Vital Signs Temp 36.3 C L 12/18/22 19:02 Pulse 79 12/18/22 19:02 Resp 16 12/18/22 19:02 BP 114/71 12/18/22 19:02 Pulse Ox 96 12/18/22 19:02 Laboratory Results - last 24 hr 12/16/22 12/18/22 12/18/22 16:00 05:32 05:32 WBC RBC Hgb Hct MCV MCH MCHC RDW Plt Count MPV Immature Gran % Neutrophils % Lymphocytes % Monocytes % Eosinophils % Basophils % Nucleated RBC % Absolute Neutrophils Absolute Lymphocytes Absolute Monocytes Absolute Eosinophils Absolute Basophils Sodium 132 L Potassium 3.9 Chloride 101 Carbon Dioxide 22.9 Anion Gap 8.1 BUN 22 H Creatinine 0.7 Est GFR (CKD-EPI 2020) 93.56 Glucose 102 Calcium 8.5 Magnesium 1.9 Creatine Kinase 39 Urine Legionella Ag Negative 12/18/22 05:32 WBC 9.56 RBC 4.27 Hgb 11.3 Hct 33.7 L MCV 79 L MCH 26.5 L MCHC 33.5 RDW 19.6 H Plt Count 142 MPV 9.5 Immature Gran % 2.0 Neutrophils % 78.0 Lymphocytes % 6.4 Monocytes % 10.8 Eosinophils % 2.4 Basophils % 0.4 Nucleated RBC % 0.0 Absolute Neutrophils 7.46 H Absolute Lymphocytes 0.61 L Absolute Monocytes 1.03 H Absolute Eosinophils 0.23 Absolute Basophils 0.04 Sodium Potassium Chloride Carbon Dioxide Anion Gap BUN Creatinine Est GFR (CKD-EPI 2020) Glucose Calcium Magnesium Creatine Kinase Urine Legionella Ag PAWSS Have you Been Recently Intoxicated or Drunk Within the Last 30 days?: Yes Have you Ever Experienced Previous Episodes of Alcohol Withdrawal?: No Have you ever Experienced Withdrawal Seizures?: No Have you ever Experienced Delirium Tremens(DT)s?: No Have you ever undergone Alcohol Rehabilitation Treatment (i.e, inpt ot outpatient treatment programs)?: No Have you ever Experienced Blackouts?: No Have you ever Combined Alcohol with other Downers within the last 90 days?: Yes Have you ever Combined Alcohol with any other Substance of Abuse during the last 90 days?: Yes Positive Blood Alcohol level on Presentation? [PCS.BAL]: Unable to Obtain Evidence of Increased Autonomic Activity (i.e. HR>120, tremor, sweating, agitation, nausea)?: No Result: 3 Time Spent with Patient Time Spent with Patient: 25-34 minutes Time was spent: preparing to see the patient(eg.review tests), obtaining and/or reviewing separately otained hiistory, ordering medications,tests, procedures, referring, communicating with other health primary health care nurse, indepentently interpreting results, counseling the patient and care coordination
[2022-12-18 23:08] LABS: Streptococcus Pneumoniae Ag, U Negative (Negative)
[2022-12-19] MEDS: HYDROmorphone 2 MG TAB PO ×2 (03:48→13:32)
[2022-12-19] MEDS: Acetaminophen 500 MG TAB PO ×2 (03:49→21:42)
[2022-12-19] MEDS: HYDROmorphone 2 MG/ML SYR 0.5 MG IVP ×2 (05:20→20:01)
[2022-12-19] MEDS: Levothyroxine 25 MCG TAB PO (05:20)
[2022-12-19 05:21] VITALS: BP 98/64; PULSE 83; RESP 18; TEMP 37.2; O2SAT 99
[2022-12-19 07:40] VITALS: BP 111/69; PULSE 87; RESP 18; TEMP 36.7; O2SAT 98
[2022-12-19] MEDS: Glycopyrrolate 1 MG TAB PO ×2 (08:23→20:01)
[2022-12-19] MEDS: Rifaximin 550 MG TAB PO ×2 (08:23→20:02)
[2022-12-19] MEDS: Apixaban 5 MG TAB PO ×2 (08:23→20:01)
[2022-12-19] MEDS: Sertraline 100 MG TAB PO (08:23)
[2022-12-19] MEDS: Propranolol 10 MG TAB PO (08:23)
[2022-12-19] MEDS: Spironolactone 50 MG TAB PO (08:23)
[2022-12-19] MEDS: Pantoprazole 40 MG TABCR PO (08:23)
[2022-12-19] MEDS: metroNIDAZOLE 500 MG/100 ML BAG 100 MG IVPB ×3 (08:24→23:15)
[2022-12-19] MEDS: Normal Saline Flush 10 ML SYR IVP ×2 (08:25→15:55)
[2022-12-19] MEDS: Lactulose 20 GM/30 ML CUP PO (08:54)
[2022-12-19] MEDS: Ondansetron O.D.T. 4 MG TABEF PO (09:04)
--- NOTE | 2022-12-19 12:26 | PT.INNT ---
Date of service: 12/19/22 Time of Service: 12:26 PT Notes Visit Reasons: Pneumonia,rhabdomyolysis,rib fracture,pleural effu 12/19/2022 Did touch base with Deepthi twice this morning to see if she was interested in sitting up in recliner chair, but she stated she preferred to remain in her bed. Held on PT services per patient preference.
--- NOTE | 2022-12-19 14:38 | PGE_ITS ---
Date of Service Date of service: 12/19/22 Time of Service: 14:38 Assessment and Plan Assessment and plan (1) Pneumonia: Status: Acute Assessment and plan: Has evidence of PNA by CT and is aspirating. Continue ceftriaxone/metronidazole. modified diet Encourage IS. Thoracenthesis not indicated, per general surgery. (2) Blunt head trauma: Status: Acute Assessment and plan: Due to a mechanical fall. CT head negative. continue scheduled tylenol. Continue fentanyl patch supplement oral hydromorphone for breakthrough pain (3) Blunt trauma of multiple sites of trunk: Status: Acute Assessment and plan: With rib fx. Lidocaine patches. schedule tylenol. fentanyl patches + PO/IV dilaudid. Encourage IS. (4) Right rib fracture: Status: Acute Assessment and plan: As above (5) Pleural effusion on right: Status: Chronic Assessment and plan: Encourage IS. (6) GI (gastrointestinal hemorrhage): Status: Chronic Assessment and plan: Portal hypertension. continue propranolol and protonix. (7) Hepatocellular carcinoma: Status: Acute Assessment and plan: Metastatic. Will be discharged home on hospice on Wednesday12/20/22. Continue rifaximin and lactulose. Not encephalopathic clinically. (8) DVT prophylaxis: Status: Acute Assessment and plan: Therapeutic eliquis (9) Discharge planning issues: Status: Acute Assessment and plan: DNR/DNI Plan for discharge home on hospice on 12/20/22. Discussed with Dr Yates Subjective Subjective Patient reports: no new complaints, pain is less, tolerating liquids well and afebrile; denies bowel movement, diarrhea, nausea or vomiting Interval history since last seen: Reports pain is less, continues to want to go home on hospice tomorrow, this is arranged and will happen tomorrow, 12/19 in the am. Exam Narrative Exam Narrative: General: frail female, semifowlers in bed, appears comfortable HEENT: EOMI, MMM, ecchymosis L cheek Heart: RRR, + ZOILA Lungs: nonlabored breathing Abdomen: distended/full - ascites Extremities: +1 edema BLEs Objective Last Vital Signs Temp 36.7 C 12/19/22 07:40 Pulse 87 12/19/22 07:40 Resp 18 12/19/22 07:40 BP 111/69 12/19/22 07:40 Pulse Ox 98 12/19/22 07:40 Laboratory Results - last 24 hr 12/16/22 16:00 Ur Strep pneumoniae Ag Negative PAWSS Have you Been Recently Intoxicated or Drunk Within the Last 30 days?: Yes Have you Ever Experienced Previous Episodes of Alcohol Withdrawal?: No Have you ever Experienced Withdrawal Seizures?: No Have you ever Experienced Delirium Tremens(DT)s?: No Have you ever undergone Alcohol Rehabilitation Treatment (i.e, inpt ot outpatient treatment programs)?: No Have you ever Experienced Blackouts?: No Have you ever Combined Alcohol with other Downers within the last 90 days?: Yes Have you ever Combined Alcohol with any other Substance of Abuse during the last 90 days?: Yes Positive Blood Alcohol level on Presentation? [PCS.BAL]: Unable to Obtain Evidence of Increased Autonomic Activity (i.e. HR>120, tremor, sweating, agitation, nausea)?: No Result: 3 Time Spent with Patient Time Spent with Patient: 35-49 minutes Time was spent: preparing to see the patient(eg.review tests), ordering medications,tests, procedures, referring, communicating with other health personal care assistant, indepentently interpreting results, counseling the patient and care coordination
[2022-12-19 16:08] VITALS: BP 110/68; PULSE 90; RESP 16; TEMP 36.4; O2SAT 94
[2022-12-19 16:18] VITALS: O2SAT 93
[2022-12-19] MEDS: cefTRIAXone 1 GM/50 ML BAG IVPB (17:00)
[2022-12-19] MEDS: LORazepam 0.5 MG TAB PO (20:01)
[2022-12-19 23:20] VITALS: BP 123/75; PULSE 92; RESP 16; TEMP 36.4; O2SAT 94
[2022-12-20] MEDS: Acetaminophen 500 MG TAB PO (04:36)
[2022-12-20] MEDS: Levothyroxine 25 MCG TAB PO (04:36)
[2022-12-20 07:55] VITALS: BP 108/63; PULSE 91; RESP 10; TEMP 37.1; O2SAT 96
[2022-12-20] MEDS: Lactulose 20 GM/30 ML CUP PO (08:03)
[2022-12-20] MEDS: metroNIDAZOLE 500 MG/100 ML BAG 100 MG IVPB (08:03)
[2022-12-20] MEDS: Lidocaine 5% Patch 1 PATCH TP (08:03)
[2022-12-20] MEDS: Sertraline 100 MG TAB PO (08:04)
[2022-12-20] MEDS: Rifaximin 550 MG TAB PO (08:04)
[2022-12-20] MEDS: Pantoprazole 40 MG TABCR PO (08:04)
[2022-12-20] MEDS: Propranolol 10 MG TAB PO (08:04)
[2022-12-20] MEDS: Apixaban 5 MG TAB PO (08:04)
[2022-12-20] MEDS: Spironolactone 50 MG TAB PO (08:04)
[2022-12-20] MEDS: Glycopyrrolate 1 MG TAB PO (08:04)
[2022-12-20 08:35] VITALS: O2SAT 94
--- NOTE | 2022-12-20 10:21 | W.PM.DS.N ---
Date of service: 12/20/22 Time of Service: 10:21 DS: Diagnosis Discharge Diagnosis (1) Pneumonia: Status: Acute (2) Blunt head trauma: Status: Acute (3) Blunt trauma of multiple sites of trunk: Status: Acute (4) Right rib fracture: Status: Acute (5) Pleural effusion on right: Status: Chronic (6) GI (gastrointestinal hemorrhage): Status: Chronic (7) Hepatocellular carcinoma: Status: Acute (8) DVT prophylaxis: Status: Acute (9) Discharge planning issues: Status: Acute Discharge Plan Disposition Patient Disposition: Home Condition: Deteriorating Discharge Details Reason For Visit: Pneumonia,rhabdomyolysis,rib fracture,pleural effu Admit Date/Time: 12/15/22 14:26 Admit Provider: Bryce Espinoza Attending Provider: Bryce Espinoza Primary Care Provider: Geovanna Barlow [facility] Course Hospital Course: This is a 67-year-old female patient with past medical history of hepatocellular carcinoma, diagnosed in April 2018, with local lymph node involvement noted in 2019, and now with?supraclavicular adenopathy. Patient has undergone radiation and ablation but no systemic chemotherapy.? Other past medical history includes chronic hepatitis C, alcoholic cirrhosis, with esophageal varices and hepatic encephalopathy, with current alcohol use, portal vein thrombus, hypothyroidism, depression and anxiety. On 12/15/22 patient presented to the [facility] ED for evaluation of a fall.? Patient reported she was preparing to go to bed, ambulating with her walker and her legs slipped out from under her causing her to fall forward. She was unsure if she had any loss of consciousness and unclear how long she had actually been on the floor, but possibly greater than 24-48h. In the ED patient had notable bruising to her left lateral cheek and a 2 cm skin tear on the mid chest with what was described as a stage 1 pressure injury on her entire upper abdomen/chest from laying on the floor for an undetermined amount of time. She was at that time alert and oriented x 4 currently, no focal deficits.? Labs in the ED were remarkable for WBC of 18, mild increase in BUN, LFT's and bilirubin were minimally elevated, CK over 600. Radiology findings revealed hepatic mass with probable involvement of the gallbladder. There is metastatic disease in the chest.?Noted an acute fracture of the posterior aspect of the right 7th rib, subacute 8th right rib fracture that showed evidence of healing. ?No acute fracture of the thoracic or lumbar spine. Large right pleural effusion and subjacent infiltrate, peripheral opacities in the lung, contusions, atelectasis or multifocal pneumonia. Patient was placed on ceftriaxone IV for possible aspiration pneumonia.? She was seen by speech therapy. Speech therapy recommended puree/thin diet and provide cues to clear throat intermittently to prevent laryngeal invasion of suspected residue.? She was seen by surgery and a thoracentesis was not recommended, it is not thought to be a traumatic hemothorax and she does not have any symptoms related to the pleural effusion, therefore there is no therapeutic benefit to draining it. Patient was started on hydromorphone orally for pain, lidocaine patch and started on 12 mcg fentanyl patch.? This has kept her comfortable. Patient has an indwelling urinary catheter for comfort. Patient was seen by palliative care and after discussion with patient and her daughter, patient chose to go to her daughter?s home on home hospice.? Hospice was notified and orders were placed.? Patient appears comfortable. Prescriptions for fentanyl patch [facility] Hospice sent the prescription for the hospice comfort kit. Patient is DNR/DNI. Patient is discharged via EMS. Home Meds and New Rx's Prescriptions: New lidocaine 5 % Adhesive Patch,Medicated 1 patch topical Q24H Qty: 15 0RF fentanyl 12 mcg/hr patch 72 hour 1 patch transdermal Q72H Qty: 5 0RF Continued omega-3 fatty acids-fish oil 1 EACH capsule 1 ea PO DAILY Patient Comments: not on med list sertraline [Zoloft] 100 MG tablet 100 mg PO BID Patient Comments: lorazepam 1 mg tablet 1 mg PO Q4H PRN (Reason: anxiety) Qty: 10 5RF Rx Instructions: hospice morphine concentrate 100 mg/5 mL (20 mg/mL) solution See Rx Instructions PO Q1H PRN MDD 120 mg Qty: 30 0RF Rx Instructions: 0.25-1.0 ml orally every 1 hour, as needed; HOSPICE melatonin-pyridoxine (vit B6) 1 TAB tablet 1 tab PO HS PRN Patient Comments: not on med list propranolol 10 mg tablet 10 mg PO BID pantoprazole 40 mg tablet,delayed release (DR/EC) 40 mg PO DAILY ondansetron HCl 4 mg tablet 4 mg PO Q8H PRN Patient Comments: TAKE 1 TABLET BY MOUTH EVERY 8 HOURS NEEDED FOR NAUSEA lorazepam 0.5 mg tablet 0.5 mg PO HS PRN Patient Comments: TAKE 1 TABLET BY MOUTH AT BEDTIME NEEDED furosemide 20 mg tablet 20 mg PO DAILY Patient Comments: TAKE 1 TABLET BY MOUTH EVERY DAY ferrous sulfate 325 mg (65 mg iron) tablet,delayed release (DR/EC) 325 mg PO DAILY Patient Comments: TAKE 1 TABLET BY MOUTH DAILY spironolactone 50 mg tablet 50 mg PO DAILY oxycodone 5 mg tablet 5 mg PO Q6H PRN Patient Comments: TAKE 1 TABLET BY MOUTH EVERY 6 HOURS NEEDED FOR PAIN lactulose 10 gram/15 mL solution 30 ml PO DAILY Patient Comments: TAKE 30 ML BY MOUTH DAILY Xifaxan 550 mg tablet 550 mg PO BID Patient Comments: TAKE 1 TABLET BY MOUTH TWICE DAILY levothyroxine 25 MCG tablet 25 mcg PO DAILY Discontinued Eliquis 5 mg tablet 5 mg PO BID Patient Comments: TAKE 1 TABLET BY MOUTH TWICE DAILY Discharge Instructions Additional Instructions: Apixaban has been discontinued secondary to risk v benefit in setting of multiple falls and going home on hospice care. Stand Alone Forms: Nursing Discharge Form Activity:: Activity as Tolerated Equipment/Supplies:: No Equipment Needed Diet:: As Tolerated Discharge Orders Discharge Orders: Discharge Order (Routine); Ordered 12/20/22 Ordered By: Marianne Meng Discharge Data Discharge Date/Time-TO BE ENTERED AT DEPARTURE: 12/20/22 13:48 DS: Summary Time Spent with Patient providing and/or coordinating discharge services: Greater than 30 minutes Status at Discharge Functional status at discharge: bed bound Overall status at discharge: patient is not back to baseline Mental Status: other Speech and Movement: slowed movement Mood: labile mood and other Affect: blunted Exam Narrative Exam Narrative: General: frail female, semifowlers in bed, appears comfortable HEENT: EOMI, MMM, ecchymosis L cheek Heart: RRR, + ZOILA Lungs: nonlabored breathing Abdomen: distended/full - ascites Extremities: +1 edema BLEs Psych Mental Status: other Speech and Movement: slowed movement Mood: labile mood and other Affect: blunted DS: Data Vitals/I&O Vitals and I&O: Vital Signs Temperature 37.1 C 12/20/22 07:55 Temperature Source Tympanic 12/20/22 07:55 Pulse 91 H 12/20/22 07:55 Pulse Rhythm Regular 12/20/22 07:10 Pulse 98 H 12/15/22 15:45 Respiratory Rate 10 L 12/20/22 07:55 Respiratory Effort Non-Labored 12/20/22 07:10 Respiratory Depth Shallow 12/20/22 07:10 Respiratory Pattern Bradypnea 12/20/22 07:10 Blood Pressure 108/63 12/20/22 07:55 Blood Pressure Mean 62 12/15/22 15:45 Blood Pressure Position Supine 12/15/22 11:41 Pulse Oximetry 94 12/20/22 08:35 Oxygen Delivery Method Nasal Cannula 12/20/22 08:35 Oxygen Flow Rate 1.5 12/20/22 08:35 Pain Level 7 12/20/22 07:55 Comment patient was 88% on room air, placed on 1L of o2 now sating 93% 12/16/22 16:36 Intake & Output 12/19/22 12/19/22 12/20/22 11:59 23:59 11:59 Intake Total 300 / 400 100 / 400 150 / 150 Output Total 500 / 500 Balance -200 / -100 100 / -100 150 / 150 Weight 65.8 kg Intake: IV 200 / 300 100 / 300 150 / 150 Oral 100 / 100 Output: Urine 500 / 500 Other: Urine Color Dark Lashonda Dark Lashonda Yellow Urine Appearance Cloudy Clear Urine Odor None None Normal Comment has a periwix but was incontinent. whole bed change Stool Size Small Stool Characteristics Soft Voiding Methods Incontinent Incontinent Data Completed and Pending Labs on day of discharge: Preliminary micro results at discharge 12/15/22 14:45 Blood Culture - Preliminary Blood NO GROWTH 96 HOURS 12/15/22 14:50 Blood Culture - Preliminary Blood NO GROWTH 96 HOURS PFS All Active Problems (Updated 12/18/22 @ 21:30 by Alexus Yates MD) Palliative care patient (Acute) Ambulatory dysfunction (Acute) Weakness (Acute) Frequent falls (Acute) ETOH abuse (Chronic) Cirrhosis of liver (Acute) Discharge planning issues (Acute) DVT prophylaxis (Acute) Superficial thrombophlebitis of both legs (Acute) Blunt head trauma (Acute) Cervical strain (Acute) Blunt trauma of multiple sites of trunk (Acute) Right rib fracture (Acute) Pneumonia (Acute) Dehydration (Acute) Pleural effusion on right (Chronic) Hep C w/o coma, chronic (Acute) Portal hypertensive gastropathy (Acute) GI (gastrointestinal hemorrhage) (Chronic) Varices of esophagus determined by endoscopy (Acute) Hepatocellular carcinoma (Acute) Metastatic Surgical History section X 2 Ligation of fallopian tube Social History Smoking/Tobacco Use Status: Unknown Smoking risk assessment performed?: Yes Alcohol Intake: former Drug use: Occasionally Substance use type: marijuana Details: marijuana at bedtime Housing: apartment Do you feel safe at home: Yes Do you feel safe in your relationship?: Yes Time Spent with Patient Time Spent with Patient: 70-84 minutes4 Time was spent: preparing to see the patient(eg.review tests), ordering medications,tests, procedures, referring, communicating with other health healthcare facility administrator, indepentently interpreting results, counseling the patient and care coordination
[2022-12-20] MEDS: HYDROmorphone 2 MG/ML SYR 0.5 MG IVP (10:40)
[2022-12-20] MEDS: cefTRIAXone 1 GM/50 ML BAG IVPB (10:53)
--- NOTE | 2022-12-20 14:18 | CMDISCH_ITS ---
Date of service: 12/20/22 Time of Service: 14:18 LACE Index Scoring Tool Questions: Length of Stay (in days): 4 - 6 Was the patient admitted via the E.D.?: Yes Comorbidities: Any Tumor and Liver or Renal Disease E.D. Visits: 2 Answers: Total Score: 14 Risk of Readmission: High Risk Care Management Discharge Plan Reason for Hospitalization: Pneumonia, fall Discharge Plan: Cheli will discharge to her daughter Freya's home to be admitted to hospice. Equipment arrived Wednesday, CANDELARIA reviewed bed sheet recommendations from [facility], and supported order coordination. Transportation via EMS coordinated by CANDELARIA and relayed to Freya [facility] staff and [facility]. Patient/Family Education Needs: Review discharge instructions, discuss Ask Me Three. Services Needed at Discharge: DME Agency, Home Health Care Services and Transportation
[2022-12-21 00:34] LABS: Mycoplasma Pneumoniae PCR Negative; Specimen source Sputum
--- NOTE | 2022-12-22 09:35 | PT.INDS ---
PT Notes Visit Reasons: Pneumonia,rhabdomyolysis,rib fracture,pleural effu Inpatient Physical Therapy Discharge Summary Date: 12/22/22 Dates of Service: 12/17/22 - 12/20/22 Referring Doctor: Dr. Yates PT Orders: PT CONSULT: limited abilty to ambulate Precautions: standard Patient Profile/Admitting Diagnosis: Patient admitted after fall at home resulting in right rib fx. Diagnosed in ER with pneumonia and right pleural effusion in the presence of metastatic hepatocellular carcinoma. PT orders for evaluation and treatment of mobility impairments. Patient participated in 3 PT sessions with limited gains in mobility; she transitioned home with Hospice level care on 12/20/22. Equipment Owned/DME: cane, FWW Subjective: none Objective: ROM: Right Upper Extremity: Shoulder flexion to 90*. Elbow motion WFL. Left Upper Extremity: Shoulder flexion to 90*. Elbow motion WFL. Right Lower Extremity: Hip flexion 70*. Knee motion 0-80*. Ankle DF to neutral only. Left Lower Extremity: Hip flexion 70*. Knee motion 0-80*. Ankle DF to neutral only. Strength: Right Upper Extremity: Shoulder flexion 3-/5. Controls Technician is weak but equal. Left Upper Extremity: Shoulder flexion 3-/5. Controls Technician is weak but equal. Right Lower Extremity: Hip flexion 3-/5. Quads 3-/5 (functionally unable to perform SLR, but gets good active quad set). PF/DF 3/5. Left Lower Extremity: Hip flexion 3-/5. Quads 3-/5 (functionally unable to perform SLR, but gets good active quad set). PF/DF 3/5. Bed Mobility/Transfers: Sit-supine: mod A?Sit-stand: mod Ax2?Stand-sit:mod A ?Bed-Chair: STEADY?Chair-bed: STEADY Gait: UNABLE Assessment: Patient is a 67 year old female referred to physical therapy services with the diagnosis of limited ability to ambulate due to acute medical issues, including pleural effusion and rib fx resulting from recent fall. Patient presented with severe mobility impairments due to pain and weakness, and made limited progress with PT intervention. She transitioned home on Hospice level care on 12/20/22. Goals: Goals X1 week GOALS NOT MET 1. Supine-Sit : min A 2. Sit-Supine : min A 3. Sit-Stand : min A 4. Stand-Sit : min A 5. Bed-Chair : min A with FWW 6. Chair-Bed : min A with FWW 7. Gait : min A with FWW x 25' Plan of Care/Treatment Plan: D/C home with Hospice. DISCHARGE RECOMMENDATIONS: as above TREATMENT CODE/TIME: none Shantel Craft, PT, DPT [facility]
== END 2022-12-20 13:48 | disposition home or self-care (01) | DRG 178 ==
LOC: ER 14:56 → MS 12-16 09:02
PROVIDERS: Internal Medicine; Admitting Provider Family Medicine; Emergency Provider Emergency Medicine; PCP Family Medicine; Visit Provider Family Medicine
DX: J69.0 Pneumonitis due to inhalation of food and vomit (principal); C22.0 Liver cell carcinoma; S22.31XA Fracture of one rib, right side, initial encounter for closed fracture; J94.8 Other specified pleural conditions; K76.6 Portal hypertension; I85.10 Secondary esophageal varices without bleeding; I24.8 Other forms of acute ischemic heart disease; K92.2 Gastrointestinal hemorrhage, unspecified; C78.01 Secondary malignant neoplasm of right lung; J90 Pleural effusion, not elsewhere classified; C77.9 Secondary and unspecified malignant neoplasm of lymph node, unspecified; S16.1XXA Strain of muscle, fascia and tendon at neck level, initial encounter; W01.0XXA Fall on same level from slipping, tripping and stumbling without subsequent striking against object, initial encounter; S00.83XA Contusion of other part of head, initial encounter; T79.6XXA Traumatic ischemia of muscle, initial encounter; E86.0 Dehydration; B18.2 Chronic viral hepatitis C; K31.89 Other diseases of stomach and duodenum; Z79.01 Long term (current) use of anticoagulants; I80.03 Phlebitis and thrombophlebitis of superficial vessels of lower extremities, bilateral; Z66 Do not resuscitate; K70.30 Alcoholic cirrhosis of liver without ascites; F41.9 Anxiety disorder, unspecified; F32.A Depression, unspecified; L89.891 Pressure ulcer of other site, stage 1; S20.314A Abrasion of middle front wall of thorax, initial encounter
CPT/HCPCS: 36415; 51701; 74177; 80048; 80053; 82550; 84145; 86850; 86900; 86901; 87040; 87449; 92526; 92610; 93005; 93306; 96365; 96367; 97110; 97162; 97167; 97530; 97535; 99222; 99285; 70450; 70486; 71260; 72125; 80320; 81003; 81015; 82140; 83605; 83735; 84443; 84484; 85025; 85610; 85730; 86140; 87581; 87899; 93010; 94760; 99223; 99231; 99232; 99233; 99239; J0696; J1170; J3490